=== PATIENT | male | born 1945 | race Caucasian/White ===

== ENCOUNTER 2018-08-24 22:01 | Inpatient (IN) ==
[2018-08-24] MEDS ORDERED: ASPIRIN ONE (22:21)
[2018-08-24 23:58] LABS: INR 1.06; PROTIME 14.6 Seconds (11.0-16.0)
[2018-08-24 23:59] LABS: BASO# 0.01 X1000 (0.0-0.2); HEMATOCRIT 36.6 % (42.0-52.0); HEMOGLOBIN 12.1 g/dL (14.0-18.0); IMM GRAN% 0.4 % (0.0-0.5); LYMPH# 0.58 X1000 (1.2-3.4); LYMPH% 2.3 % (20.5-51.1); MCH 31.3 PG (27-31); MCHC 33.1 g/dL (33-37); MCV 94.6 FL (81-99); MONO# 0.96 X1000 (0.11-0.59); MONO% 3.7 % (1.7-9.3); MPV 10.2 FL (7.4-10.4); NEUT# 24.09 X1000 (1.4-6.5); NEUT% 93.6 % (42.2-75.2); PLT 268 X1000 (130-400); PTT 33.6 Seconds (22.3-41.8); RBC 3.87 XMIL (4.7-6.1); RDW 17.9 % (11.5-14.5); WBC 25.74 X1000 (4.8-10.8)
[2018-08-25 00:09] LABS: ALB/GLOB RATIO 0.8; ALBUMIN 2.3 g/dL (3.5-5.0); CALCIUM 7.9 mg/dL (8.8-10.2); POTASSIUM 4.7 mmol/L (3.5-5.1); TOTAL BILIRUBIN 0.68 mg/dL (0.20-1.00); TOTAL PROTEIN 5.3 g/dL (6.3-8.3)
--- NOTE | 2018-08-25 01:17 | PROVIDER DOCUMENTATION ---
This chart was entered by Chasity Servin Scribe, acting as scribe for Taye Vasquez DO. HPI-General Adult - General Stated Complaint: weakness Time Seen by Provider: 08/24/18 22:32 Source: patient Allergies/Adverse Reactions: Patient Allergies Allergy/AdvReac Type Severity Reaction Status Date / Time oseltamivir [From Tamiflu] Allergy ALTERED Verified 07/22/18 11:01 MENTAL STATUS Home Medications: Home Medication List Medication Instructions Recorded Confirmed Last Taken Type Folic Acid 0.8 mg PO DAILY 10/14/13 07/22/18 07/21/18 History Ascorbate Calcium [Vitamin C] 500 mg PO DAILY 10/29/15 07/22/18 07/21/18 History Sitagliptin [Januvia] 50 mg PO DAILY 07/03/17 07/22/18 07/21/18 History Calcium Acetate [Phoslo] 1,334 mg PO TID CC tablet 07/10/17 07/22/18 07/21/18 Rx Febuxostat [Uloric] 40 mg PO DAILY tablet 07/10/17 07/22/18 07/21/18 Rx [place]-3 Fatty Acids [Fish Oil 1,200 mg PO TID 12/15/17 07/22/18 07/21/18 History Concentrate] Amiodarone [Cordarone] 200 mg PO BID 02/16/18 07/22/18 07/21/18 History Glimepiride [Amaryl] 2 mg PO DAILY 02/16/18 07/22/18 07/21/18 History SIMVAstatin [Zocor] 40 mg PO HS 02/16/18 07/22/18 07/21/18 History Vitamin B Comp and C/FA/Zn Cit 1 tab PO DAILY 02/16/18 07/22/18 07/21/18 History [Dialyvite 800-Zinc 50 mg Tab] Ferric Citrate [Auryxia] 1 tab PO DIRECTED 06/26/18 07/22/18 Unknown History Midodrine [Proamatine] 10 mg PO TID #90 tab 07/28/18 Unknown Rx - History of Present Illness -Gen Adult Nature of Presenting Problems: Pt is 73/m presenting to ED w/ c/p midchest w/ sob that started today. He has been coughing and admits some pain in chest with coughing. Pt is on recent antibiotics by Dr. Porter. Location of Pain/Injury: reports: chest (mid chest) Pain Radiation: reports: no radiation Quality of Pain: reports: aching Severity: reports: mild Onset/Duration: reports: this evening Timing: reports: still present Context/Activities at Onset: reports: none Modifying Factors: improves with: nothing Associated Symptoms: reports: chest pain, cough, shortness of breath. denies: fever/chills Similar Symptoms Previously?: Yes Recently seen or treated by another doctor?: Yes Review of Systems - Adult - REVIEW OF SYSTEMS - ADULT Constitutional: reports: no symptoms reported. denies: chills, fever Eyes: reports: no symptoms reported Ears, Nose, Mouth & Throat: reports: no symptoms reported Cardiovascular: reports: chest pain. denies: edema Respiratory: reports: cough, shortness of breath. denies: wheezing Gastrointestinal: reports: no symptoms reported. denies: abdominal pain Genitourinary: reports: no symptoms reported Musculoskeletal: reports: no symptoms reported Integumentary: reports: no symptoms reported Neurological: reports: no symptoms reported Psychiatric: reports: no symptoms reported Endocrine: reports: no symptoms reported Hematologic/Lymphatic: reports: no symptoms reported Allergic/Immunologic: reports: no symptoms reported All Other Systems: Reviewed and Negative Past History - Adult - PAST MEDICAL HISTORY-ADULT Review of Records: reports: Old Records Reviewed, Nursing Assessment Review, Medications Reviewed, Social history reviewed & non-contributory. Major Childhood Illnesses: reports: denies history Cardiovascular: reports: A-Fib, HTN Respiratory: reports: denies history Gastrointestinal: reports: denies history Obstetrical/Gynecological: reports: denies history Genitourinary: reports: dialysis, kidney disease Musculoskeletal: reports: denies history Neurological: reports: denies history Endocrine/Immune: reports: Diabetes Other Conditions: reports: denies history - PRIOR SURGERIES/PROCEDURES Surgical/Procedure History: reports: reviewed, not pertinent, appendectomy, cholecystectomy, tonsillectomy, hernia repair - IMMUNIZATION STATUS Childhood Immunizations: See Nurse Assessment Flu Vaccine: See Nurse Assessment - FAMILY HISTORY Family History: reviewed, not pertinent - SOCIAL HISTORY Smoking: quit greater than 1 year Substance Use: none/never Alcohol Use Frequency: never Living Situation: family Physical Exam-General - PHYSICAL EXAM-ADULT Initial Vital Signs Reviewed: Yes - CONSTITUTIONAL General Appearance: appears well, alert, no apparent distress - EYES Eyes: PERRL/EOMI - HEAD, EARS, NOSE, MOUTH & THROAT HENMT: normocephalic/atraumatic, moist mucous membranes, normal ENT inspection, TMs normal - NECK Neck: non-tender, full range of motion, supple - RESPIRATORY Respiratory: rales (Course rales on R side) - CARDIOVASCULAR Cardiovascular: normal peripheral pulses, regular rate, rhythm, no edema, no gallop, no JVD, no murmur - GASTROINTESTINAL (ABDOMEN) Abdominal Exam: normal bowel sounds, non tender, soft, other (Dialysis port in abd) - LYMPHATIC Lymphatic: no adenopathy - MUSCULOSKELETAL Back Exam: normal inspection, no CVA tenderness, no vertebral tenderness Extremity: other (scrapes to lower legs that are well healing) - SKIN Integumentary: normal color, normal turgor, warm/dry Progress - PLAN OF CARE/RESULTS Progress/Plan/Lab Results: Orders Category Date Time Status Aspirin Med 08/24/18 22:21 Discontinued 325 mg .ROUTE .STK-MED ONE Result Diagrams: 08/24/18 22:01 08/24/18 22:01 - EKG 1 Time of EKG reading by physician:: 22:14 EKG Read and Signed by:: Taye Vasquez EKG Interpretation (*Must complete 3 of following elements*): Abnormal ( pulmonary disease pattern Left anterior fascicular block Prolonged QT Abnormal ECG) Rate: 89 Rhythm: normal sinus rhythm - XRAY 1 XRAY Study: Chest (possible right lower lobe infiltrate vs atelectasis) Departure - Departure Date of Disposition Decision: 08/25/18 Time of Disposition Decision: 01:14 DIAGNOSIS: Pneumonia Disposition: HOME 01 Certified Medical Emergency: Emergent Condition: Fair Referrals and Follow-Ups: Nabeel Kinney MD [Primary Care Provider] - - Critical Care Note This patient required my direct & personal management of CC.: No Attestation - Physician/ PILAR Attestation Patient care was provided by Advanced Practice Provider:: No The physician spent face to face time with patient:: Yes Advanced Practice Provider documentation review:: Supervising physician onsite and consulted in the evaluation and care of this patient. The physician did have a face to face encounter with the patient. This chart was documented by the indicated scribe, (ServinChasity castaneda Scribe) and accurately reflects the services I performed and decisions made by , Taye Vasquez DO, as attested by the provider's signature.
[2018-08-25] MEDS ORDERED: MAXIPIME 1 GM in NS 50 ML IV ONE (01:58)
[2018-08-25] MEDS ORDERED: VANCOMYCIN 1 GM/NS 1 GM/250 ML IVPB IV ONE (01:58)
[2018-08-25 02:15] LABS: GLUCOSE BODY FLUID 324 mg/dL; LDH BODY FLUID 16 U/L; TOTAL PROT BODY FLUID 0.2 g/dL
[2018-08-25 02:23] LABS: BODY FLUID SOURCE PERITONEAL FLUID; WBC BF 15 /cumm
[2018-08-25 03:22] LABS: MONOS 85 %; POLYS 15 %
[2018-08-25] MEDS ORDERED: VANCOMYCIN IV PER PHARMACY MISC SCH (04:15)
[2018-08-25] MEDS ORDERED: ZOFRAN IV PRN (04:54)
[2018-08-25] MEDS ORDERED: TESSALON PO PRN (04:54)
[2018-08-25] MEDS ORDERED: TYLENOL PO PRN (04:54)
--- NOTE | 2018-08-25 05:22 | Diag Imaging Result Doc PS360 ---
EXAM: CHEST-PORTABLE HISTORY: chest pain TECHNIQUE: Chest single view COMPARISON: 06/26/2018 FINDINGS: Poor inspiratory effort. The heart is not enlarged. The vessels are not distended. There are mild increased interstitial markings in the lung bases. No effusion identified. IMPRESSION: Small basilar infiltrates. Electronically signed by Johann Singh 08/25/2018 5:20 AM
[2018-08-25 07:56] LABS: BASO# 0.01 X1000 (0.0-0.2); HEMATOCRIT 32.7 % (42.0-52.0); HEMOGLOBIN 10.8 g/dL (14.0-18.0); IMM GRAN# 0.08 X1000 (0.0-0.04); IMM GRAN% 0.3 % (0.0-0.5); LYMPH# 0.87 X1000 (1.2-3.4); LYMPH% 3.5 % (20.5-51.1); MCH 31.2 PG (27-31); MCV 94.5 FL (81-99); MONO# 1.03 X1000 (0.11-0.59); MONO% 4.2 % (1.7-9.3); MPV 10.1 FL (7.4-10.4); NEUT# 22.53 X1000 (1.4-6.5); PLT 224 X1000 (130-400); RBC 3.46 XMIL (4.7-6.1); RDW 17.9 % (11.5-14.5); WBC 24.52 X1000 (4.8-10.8)
--- NOTE | 2018-08-25 08:01 | HISTORY AND PHYSICAL ---
Patient of Dr. Kinney. Comes in complaining of a 5 day history of cough and worsening shortness of breath, increased weakness and decreased appetite without any fevers or chills. He is a peritoneal dialysis patient but denies any abdominal pain. Reviewed his lab work and his white count was 25,000, H and H 12 and 36, platelets were 268,000 with a neutrophil percent count of 93%. His sodium is 128, BUN 76, creatinine 9.0, glucose of 296. His ProBNP is elevated as expected but his lactate is normal. His chest film reviewed by me did not appear to show any acute infiltrates. By the way, his troponin was 2.97 which I think is more to do with his renal state but his CK was normal. He has mildly elevated liver enzymes. PHYSICAL EXAMINATION: VITAL SIGNS: His blood pressure was 91/41. Pulse 87, respirations 19, temperature 98.3 degrees. His exam was notable for bibasilar crepitations. He is a chronically ill man with decreased entry in the bases. He is pale. CARDIOVASCULAR: 2-3/6 ejection systolic murmur radiating to the neck suggestive of aortic stenosis. ABDOMEN: Essentially benign and he has a dialysis catheter in the right lower quadrant area. EXTREMITIES: He has 1+ pitting edema in the lower extremities. PRELIMINARY ASSESSMENT: 1. Patient clinically does have findings suggestive of pneumonia. 2. End-stage kidney disease on peritoneal dialysis. His peritoneal dialysate fluid is clear by the way visually and grossly. 3. He does have a history of uncontrolled type 2 diabetes. 4. Hypertension. 5. Coronary artery disease. 6. Hyponatremia which seems to be hypotonic in nature. So, the initial plan for this patient will be to start on broad spectrum antibiotics for presumptive hospital-acquired pneumonia and we will start him on vancomycin and Maxipime and transfer to the care of Dr. Kinney in the morning and Dr. Shen. cc: MD Nabeel Nicholas MD
[2018-08-25 08:57] LABS: BANDS 10 % (0-1); LYMPHS 2 % (21-51); MONO 2 % (1-9); SEGS 84 % (42-75)
[2018-08-25] MEDS ORDERED: NEPHRO-VITE PO SCH (09:00)
[2018-08-25] MEDS ORDERED: JANUVIA PO SCH (09:00)
[2018-08-25] MEDS ORDERED: AMARYL PO SCH (09:00)
[2018-08-25 09:38] LABS: CALCIUM 7.5 mg/dL (8.8-10.2); CREATININE 9.9 mg/dL (0.7-1.2); PHOSPHORUS 7.6 mg/dL (2.7-4.5); POTASSIUM 4.7 mmol/L (3.5-5.1)
[2018-08-25] MEDS: ULORIC PO SCH (09:42)
[2018-08-25] MEDS: PROAMATINE PO SCH ×3 (09:42→21:01)
[2018-08-25] MEDS: FOLIC ACID PO SCH (09:44)
[2018-08-25] MEDS: CORDARONE PO SCH ×2 (09:44→21:01)
[2018-08-25 09:55] LABS: HEMOGLOBIN A1C 6.1 % (4.8-6.0)
--- NOTE | 2018-08-25 09:58 | PROGRESS NOTE ---
DATE: 08/25/2018 SUBJECTIVE: A 73-year-old, white gentleman, admitted with chest congestion, cough, and weakness. The patient is vague and a poor historian. The patient has been sick for the last few days. Oral intake was poor. The patient had nausea but no vomiting. The patient is not making any urine. No diarrhea. No typical chest pain or palpitations. The patient is getting peritoneal dialysis. No hemoptysis. Denied any sore throat. His admission note reviewed. PAST MEDICAL HISTORY: 1. Significant for chronic kidney disease on hemodialysis. 2. History of cardiac arrhythmia on amiodarone. 3. Gout. 4. Diabetes mellitus. 5. Hyperlipidemia. OBJECTIVE: Vital Signs: Blood pressure on admission was low 91/41, pulse 87, respiration 19, temperature 98.3. Skin: Normal turgor. No rash or petechiae. Neck supple. No JVD. Lungs: Bibasilar crepitation. Heart: S1 and S2 heard. Abdomen soft, globular. Bowel sounds present. FILLING AND PACKING SUPERVISOR: Alert, awake, able to move all 4 limbs. LABORATORY DATA: Lab data did reveal leukocytosis with left shift. Chest x-ray did reveal bilateral infiltrate. Peritoneal fluid analysis noted. Flu test was negative. CONSIDERATION: 1. Possible pneumonia. 2. Leukocytosis. 3. End-stage renal disease on peritoneal dialysis. 4. Diabetes mellitus. 5. Hyperlipidemia. PLAN: We will continue IV antibiotics. Retail Salesworker is going to see patient. Continue rest of the treatment and close observation. cc: MD Nabeel Herrera MD
[2018-08-25] MEDS: DUONEB (A & A) INH SCH ×3 (10:26→21:23)
--- NOTE | 2018-08-25 11:56 | HISTORY AND PHYSICAL ---
PRIMARY CARE PROVIDER: Nabeel Kinney MD DATE AND TIME: 08/25/2018 at 0300. CHIEF COMPLAINT: Weakness. HISTORY OF PRESENT ILLNESS: Mr. Cardona is a 73-year-old male with a past medical history most notable for end-stage renal disease on nightly peritoneal dialysis followed by Dr. Shen. He also has a history of orthostatic hypotension, paroxysmal atrial fibrillation , recent gastrointestinal bleeding, and hyperlipidemia. Mr. Cardona states that for approximately 1 week now that he has not felt well and he has had worsening weakness. His states that he has also been more sleepy and drowsy than normal. The patient has reported some chills as well as a nonproductive wet cough times 1 week. The patient did state that he had some shortness of breath today prior to arrival but this has subsided at this time. His did state that he also did have a fall that occurred on Monday though since that time he has not reported any pain or injuries. He has also had physical therapy that came out to his house the next day. The patient does have orthostatic hypotension and does take midodrine and does have frequent dizziness related to this though he states this has been slightly worse. He denies any headache. He denies any chest pain except for some chest discomfort when he coughs. He denies any abdominal pain, nausea, vomiting, or diarrhea. He also denies any erythema, warmth, or drainage from his peritoneal dialysis port site and also reports that his peritoneal dialysis fluid drainage has been clear in color. The patient states that he does not produce urine any more though has not reported any discomfort or spasms recently. He does have some chronic swelling in his bilateral lower extremities though states that this is not any worse than his normal. The patient does have some very slight trace edema. His states that normally he is able to ambulate with the assistance of a walker though since he has become more weak that he has been using the assistance of a wheelchair. His also stated that he did have a routine appointment with Dr. Shen approximately a week ago and did have a cough as well as some nasal congestion and they did report that he was prescribed 2 nasal sprays and was instructed to take Coricidin. The patient states that since that time he has begun to feel worse. She states that she did contact Dr. Shen yesterday and informed him of Mr. Cardona's worsening symptoms and Dr. Shen did want him to get an x-ray though she was not able to bring him in for this outpatient order so he did call him in a prescription of cefadroxil. His reports that he did take 1 dose of this. Upon evaluation in the E.R. the patient's initial vital signs were a temperature of 98.3, heart rate 87, respirations 19, blood pressure 91/41, and oxygen saturation 95% on room air. Laboratory results did reveal that the patient had leukocytosis with a white blood cell count of 25,740. Chest x-ray does show a possible right lower lobe infiltrate and given his associated symptoms of nasal congestion, nonproductive wet cough, weakness, and shortness of breath as well as lung sounds of rhonchi and crackles in the bilateral bases the patient will be treated for pneumonia. A sample of his peritoneal fluid was obtained by his which did only show that he had white blood cells of 15, polynuclear white blood cells of 15, and mononuclear white blood cells of 85. He as previously mentioned has not had any abdominal symptoms. The patient will be placed on inpatient admission for further treatment and evaluation. REVIEW OF SYSTEMS: A 14 point review of systems was conducted with the patient and all were negative except for pertinent positives mentioned above in the HPI. PAST MEDICAL HISTORY: 1. End-stage renal disease on nightly peritoneal dialysis followed by Dr. Shen. 2. Paroxysmal atrial fibrillation currently rate controlled with amiodarone. The patient does not take anything for anticoagulation secondary to recent gastrointestinal bleeding though he was previously on Coumadin. 3. Some hyperlipidemia. 4. History of hypertension though the patient does not take any medications for this and actually has had recent problems with orthostatic hypotension. 5. Orthostatic hypotension. 6. Gout. 7. Diabetes mellitus. 8. Recent gastrointestinal bleed in June of 2018. PAST SURGICAL HISTORY: 1. Cholecystectomy. 2. Bilateral cataract surgery. 3. Retinal detachment surgery. 4. Appendectomy. 5. Tonsillectomy. 6. Left inguinal hernia repair. SOCIAL HISTORY: The patient is former smoker. He did smoke for approximately 10 to 20 years at 1 pack per day though quit smoking in the 1980s. There is no known alcohol or illicit drug use. He is and he does live with his . She was present at the bedside during our examination. The patient does normally require the assistance of a walker for ambulation though recently has had to use a wheelchair due to his worsening weakness. PAST FAMILY HISTORY: His mother had a history of heart disease and did have a myocardial infarction. She also did have heart failure and did have an implanted defibrillator. His father also had heart disease as well as a myocardial infarction. He was a diabetic though did pass away secondary to complications from a stroke. His sister did have diabetes mellitus and did pass away secondary to metastatic breast cancer. ALLERGIES: The patient has allergies to Tamiflu. HOME MEDICATIONS: 1. Amiodarone 200 mg p.o. b.i.d. 2. Uloric 40 mg p.o. every a.m. 3. Folic acid 800 mcg p.o. every a.m. 4. Dialyvite tablet 50 mg p.o. daily. 5. Glimepiride 2 mg p.o. every a.m. 6. Midodrine 10 mg p.o. t.i.d. 7. Zocor 40 mg p.o. nightly at bedtime. 8. Januvia 1 tablet p.o. every a.m. DIAGNOSTIC DATA: White blood cell count is 25.740, hemoglobin 12.1, hematocrit 36.6, and platelet count 268. PT is 14.6, INR 1.06, and PTT 33.6. Sodium is 128, potassium 4.7, chloride 84, serum bicarb 25, BUN 76, creatinine 9 with a GFR of 6, glucose 297, calcium 7.9, total bilirubin 0.68, AST 96, ALT 133, and alkaline phosphatase 274. CK is 53. Troponin is 0.297. ProBNP is greater than 35,000. Plasma lactate is 2.1. PT is 14.6, INR 1.06, and PTT 33.6. Peritoneal dialysis fluid had 15 white blood cells, 15 polynuclear white blood cells, and 85 mononuclear white blood cells. Chest x-ray did show a possible right lower lobe infiltrate though we are awaiting the official radiology overread. EKG did show that the patient had a sinus rhythm, a left anterior fascicular block, and a prolonged QT. In comparison to the patient's previous EKG in May of 2008 there does not appear to be any significant changes. PHYSICAL EXAMINATION: VITAL SIGNS: Temperature is 98.3, heart rate 77, respirations 15, and blood pressure 122/42. Oxygen saturation is 100% on nasal cannula at 2 L. GENERAL: Mr. Cardona is a very pleasant 73-year-old male who is resting in the E.R. stretcher. He is in no acute distress. He was awake, alert, and able to answer questions appropriately. HEENT: The head is atraumatic, normocephalic. Pupils are equal, round, and reactive to light. They were 3 mm bilaterally and brisk. Subconjunctivae were pink. Oral mucosa was moist. Oropharynx was clear. NECK: Supple. Trachea is midline. CARDIOVASCULAR: The patient has S1 and S2 present. He does have a systolic murmur noted though he does have a regular rate and rhythm. PULMONARY: The patient has symmetrical chest expansion bilaterally. Lungs sounds in full abebe did have rhonchi noted. He does have crackles noted in bilateral bases. ABDOMEN: Soft, nontender, and nondistended. Bowel sounds were present in all four quadrants and were normoactive. The patient's peritoneal dialysis port site does appear within normal limits. There was no erythema, warmth, or drainage present. EXTREMITIES: No cyanosis or clubbing present. The patient does have some trace edema noted in bilateral lower extremities from approximately mid calf down though pulse, motor , and sensory is intact in all extremities. Radial pulses and pedal pulses were 2+ bilaterally. Capillary refill is less than 3. INTEGUMENTARY: The patient's skin is pink, warm, and dry. NEUROLOGICAL: The patient is alert and oriented times 4. There does not appear to be any focal neurological deficits. The patient does have some generalized weakness present. ASSESSMENT AND PLAN: 1. Pneumonia. The patient had been recently admitted to the hospital at the end of June and we will cover him for healthcare-associated pneumonia as well. We have placed him with antibiotic coverage of cefepime and vancomycin. This has been renally dosed. Blood cultures have been ordered as well. We will order a sputum culture also. Continue with scheduled DuoNeb treatments. Encourage the patient to cough, turn, and deep breath. We will monitor his respiratory status closely and continue to follow. 2. End-stage renal disease on peritoneal dialysis. We have placed a consult with Dr. Shen with Nephrology. We will await his evaluation and further recommendations for management. The patient does have leukocytosis and has reported chills though he is denying any abdominal pain or nausea/vomiting. His peritoneal dialysis fluid was clear in color and his peritoneal fluid analysis so far does not represent a concern for peritonitis though we are awaiting culture results as well. At this time we do believe that his symptoms and diagnostic findings are related to pneumonia. We will continue to follow. 3. Diabetes mellitus type 2. His glucose levels are elevated. Given his acute illness related to pneumonia we will place him on a lispro insulin per low dose sliding scale for better blood glucose control. 4. History of paroxysmal atrial fibrillation. We will continue his amiodarone. 5. Orthostatic hypotension. We will continue his midodrine. His blood pressure is within normal limits at this time. 6. Hyperlipidemia. The patient does take simvastatin though he does have some elevated liver enzymes at this time and is having weakness. Given this we will hold this for the time being. We will repeat his liver function tests tomorrow and continue to follow. 7. Deep vein thrombosis prophylaxis will be provided with sequential compression devices. The patient has been placed on the medical floor with telemetry. He will have vital signs every 4 hours. We will do strict intake and output. We are awaiting blood culture, sputum culture, influenza screen, as well as peritoneal fluid culture results. Further orders and recommendations pending hospital course, diagnostic studies, and physician evaluation. Dictated by CANELO Mcmillan for Leodan George MD cc: MD Nabeel Nicholas MD [facility] HOSPITALInderjit
[2018-08-25] MEDS: HUMALOG SUBQ SCH ×3 (13:00→21:01)
--- NOTE | 2018-08-25 13:32 | NEPHROLOGY CONSULTATION ---
DATE: 08/25/2018 REASON FOR ADMISSION: Pneumonia. REASON FOR CONSULTATION: Assist with management, end-stage renal disease on peritoneal dialysis. CONSULTING PHYSICIAN: Dr. Nabeel Kinney. HISTORY OF PRESENT ILLNESS: This is a 73-year-old gentleman, well known to our service for end- stage renal disease on peritoneal dialysis for less than a year. He has had adequate dialysis with the peritoneal dialysis and no real issues. He currently uses all yellow bags with a 1.5 L dwell. He dialyzes on the cycler at night. The patient had home health coming out for some assistance and it was noted that he was having some shortness of breath, and clinical exam suggestive of respiratory issues. He was initially started on cefadroxil. His respiratory status worsened. He came into the emergency room and was noted to have a white count of 25.7, potassium 4.7, CO2 of 25, creatinine 9, albumin 2.3. He had a chest x-ray with atelectasis versus infiltrate. He was admitted to the hospital and started on vancomycin and Maxipime for pneumonia, and we have been asked to see him to assist with his management and continue his dialysis. The patient states that his appetite has been somewhat decreased over the last week and he really has not felt like getting up out of bed over the last 2 days. PAST MEDICAL HISTORY: End-stage renal disease on peritoneal dialysis. Diabetes. Hyperphosphatemia. Gout. Hyperlipidemia. Anemia. Atrial fibrillation. History of previous GI bleed. PAST SURGICAL HISTORY: He has a PD catheter. ALLERGIES: Tamiflu. HOME MEDICATIONS: Are listed as 1. Urolic. 2. Folic acid. 3. Amaryl. 4. Midrin. 5. Zocor. 6. Januvia. 7. Amiodarone. 8. Dialyvite. 9. He was also started on cefadroxil. SOCIAL HISTORY: No ETOH, tobacco, or illicit drug use. He is retired. He is and he lives with his at home. FAMILY HISTORY: Noncontributory. SOCIAL HISTORY: Shortness of breath, weakness, fatigue, decreased appetite. PHYSICAL EXAMINATION: Vital Signs: Temperature 98, pulse 64, respiratory rate 15, blood pressure 109/41. Intake and output have not been documented. He continues with a 1.5 L dwell. General: Elderly gentleman in no acute distress. He appears to feel poorly. His voice is weak but he does answer. HEENT: Normocephalic, atraumatic. MIKE. Oral mucosa moist. Neck: Supple. There is no JVD. Cardiovascular: Regular. No murmur or gallop. Pulmonary: He has some crackles posteriorly but no wheeze. Abdomen: Soft, positive bowel sounds. PD catheter right lower quadrant. Genitourinary: Not inspected. Voiding. Extremities: 1+ edema. Integumentary: Skin is warm and dry. He has some old eschar areas to his feet from a previous hospitalization with some pressure areas. LABORATORY DATA: WBC of 25.7, hemoglobin 12.1, sodium 128, potassium 4.7, CO2 of 25. BUN 76, creatinine 9.7, albumin 2.3. Chest x-ray with atelectasis versus infiltrate. ASSESSMENT AND PLAN: 1. Pneumonia. The patient has been placed on vancomycin and cefepime. Those are dosed appropriately. We will make no changes to them. Continue to monitor. 2. End-stage renal disease on peritoneal dialysis. The dialysis nurse customer operations manager has been notified. She will come up today and set him up for the cycler with his current prescription. The patient's last dialysis treatment was night. He did not go on the cycler last night. Dictated by CANELO Cleaning for Rigo Shen MD cc: MD Nabeel Person MD
[2018-08-25] MEDS: JANUVIA PO SCH (16:44)
[2018-08-25] MEDS ORDERED: ZOCOR PO SCH (21:00)
[2018-08-26] MEDS: DUONEB (A & A) INH SCH ×4 (03:59→22:35)
[2018-08-26] MEDS: HUMALOG SUBQ SCH ×4 (06:17→21:07)
[2018-08-26 07:47] LABS: EOS# 0.07 X1000 (0.0-0.7); EOS% 0.5 % (0.0-10.0); HEMATOCRIT 31.1 % (42.0-52.0); HEMOGLOBIN 10.1 g/dL (14.0-18.0); IMM GRAN# 0.04 X1000 (0.0-0.04); IMM GRAN% 0.3 % (0.0-0.5); LYMPH# 0.62 X1000 (1.2-3.4); LYMPH% 4.1 % (20.5-51.1); MCH 30.8 PG (27-31); MCHC 32.5 g/dL (33-37); MCV 94.8 FL (81-99); MONO% 3.3 % (1.7-9.3); NEUT# 13.72 X1000 (1.4-6.5); NEUT% 91.8 % (42.2-75.2); PLT 247 X1000 (130-400); RBC 3.28 XMIL (4.7-6.1); RDW 17.7 % (11.5-14.5); WBC 14.95 X1000 (4.8-10.8)
[2018-08-26 08:09] LABS: ANISOCYTOSIS OCCASIONAL; HYPOCHROM 1+; LYMPHS 4 % (21-51); MONO 6 % (1-9); SEGS 90 % (42-75)
[2018-08-26 08:12] LABS: ALB/GLOB RATIO 0.6; ALBUMIN 1.7 g/dL (3.5-5.0); CALCIUM 7.4 mg/dL (8.8-10.2); CREATININE 9.3 mg/dL (0.7-1.2); DIRECT BILIRUBIN 0.2 mg/dL (0.00-0.20); PHOSPHORUS 6.7 mg/dL (2.7-4.5); POTASSIUM 4.3 mmol/L (3.5-5.1); TOTAL BILIRUBIN 0.41 mg/dL (0.20-1.00); TOTAL PROTEIN 4.5 g/dL (6.3-8.3)
--- NOTE | 2018-08-26 09:53 | PROGRESS NOTE ---
DATE: 08/26/2018 SUBJECTIVE: Mr. Cardona is doing fairly well. No typical chest pains or palpitations. The patient does have cough with scanty sputum production. No high-grade fever or chills. Patient is getting peritoneal dialysis. The patient is not making any urine. Oral intake is fair. Known case of diabetes mellitus, end-stage renal disease, on peritoneal dialysis, cardiac arrhythmia, gout. OBJECTIVE: Vital Signs: Blood pressure 103/33, pulse 70, respiration 18, temperature 98 degrees. Skin: Senile turgor. No rash. HEENT: Head atraumatic, normocephalic. [place] conjunctivae. Anicteric sclerae. Neck: Supple. No JVD. Lungs: Bibasilar crepitations. Heart: S1 and S2 heard. Abdomen: Soft, globular. Bowel sounds present. Extremities: No acute DVT clinically. ARMORED MACHINE OPERATOR: Alert, awake. Answering questions fair. LAB DATA: Done today WBC count 14.95, hemoglobin 10.1, hematocrit 31.1, platelet count 247,000. Electrolyte results reviewed. LFTs: Alkaline phosphatase 218. The patient did have elevated troponin but denied any typical chest pain. I am going to repeat cardiac isoenzymes from a.m. blood today. His total CPK was normal. CONSIDERATION: 1. Pneumonia. 2. Leukocytosis, getting better. 3. Chronic kidney disease, on peritoneal dialysis. 4. Diabetes mellitus. 5. Hyperlipidemia. 6. History suggestive of gout. PLAN: Labs and medications noted. Overall plan discussed with the and the patient and they are in agreement. cc: MD Nabeel Herrera MD
[2018-08-26] MEDS: PROAMATINE PO SCH ×3 (10:05→21:05)
[2018-08-26] MEDS: FOLIC ACID PO SCH (10:05)
[2018-08-26] MEDS: JANUVIA PO SCH (10:06)
[2018-08-26] MEDS: NEPHRO-VITE PO SCH (10:06)
[2018-08-26] MEDS: ULORIC PO SCH (10:06)
[2018-08-26] MEDS: CORDARONE PO SCH ×2 (10:06→21:09)
--- NOTE | 2018-08-26 11:07 | NEPHROLOGY PROGRESS NOTE ---
DATE: 08/26/2018 SUBJECTIVE: Patient resting in bed. He states he simply does not feel well, but denies any pain or shortness of breath. OBJECTIVE: Vital Signs: Temperature 98 degrees, pulse 70, respiratory rate 18, blood pressure 103/33. General: This is an elderly gentleman resting in bed. He is awake and alert. He is in no acute distress. HEENT: Normocephalic, atraumatic. MIKE. Oral mucosa is moist. Neck: Supple, without JVD. Cardiovascular: Regular rate and rhythm. No murmur or gallop. Pulmonary: He has equal excursion. He has shallow inspiratory effort. Crackles posteriorly. Abdomen: Soft, with positive bowel sounds. He has a PD catheter right upper quadrant without any edema or erythema or drainage to the site, appropriately dressed. : Voiding. Extremities: Trace to 1+ edema. Integumentary: Skin is warm and dry. INTAKE AND OUTPUT: Have not been measured. LABORATORY DATA: WBC of 14.5 hemoglobin 10.1. Sodium 133, potassium 4.3, CO2 27, BUN 82, creatinine 9.3, albumin 1.7, phosphorus 6.7. ASSESSMENT AND PLAN: 1. Chronic kidney disease 5D on peritoneal dialysis. We will continue over the weekend. I did discuss with the family the possibility of necessity to transfer to hemodialysis secondary to his nutritional status. The patient has been drinking some protein shakes, but really no significant oral intake. Fluid volumes have been adequate he is not overloaded at this time. He remains on the yellow bags on peritoneal dialysis so that he does not diurese. 2. Pneumonia, appropriately dosed antibiotics. Continue to monitor. 3. Electrolytes, acid-base balance anemia. Metabolic bone health, patient's phosphorus is elevated. His binder was not initiated at admission. We will start that back today. 4. Diabetes, followed by primary. Dictated by CANELO Cleaning for Rigo Shen MD cc: MD Nabeel Person MD
[2018-08-26] MEDS: PHOSLO PO SCH ×2 (14:56→17:56)
[2018-08-26] MEDS: ALBUMIN 25% IV SCH (15:16)
[2018-08-26] MEDS: MEGACE PO SCH (21:05)
[2018-08-27] MEDS: DUONEB (A & A) INH SCH ×4 (03:38→22:40)
[2018-08-27] MEDS: HUMALOG SUBQ SCH ×4 (06:07→21:39)
[2018-08-27 07:43] LABS: HEMATOCRIT 26.7 % (42.0-52.0); HEMOGLOBIN 8.7 g/dL (14.0-18.0); MCH 31.3 PG (27-31); MCHC 32.6 g/dL (33-37); RBC 2.78 XMIL (4.7-6.1); RDW 17.3 % (11.5-14.5); WBC 12.66 X1000 (4.8-10.8)
[2018-08-27 07:58] LABS: ALBUMIN 2.4 g/dL (3.5-5.0); CALCIUM 7.9 mg/dL (8.8-10.2); CREATININE 8.7 mg/dL (0.7-1.2); PHOSPHORUS 5.8 mg/dL (2.7-4.5); POTASSIUM 3.6 mmol/L (3.5-5.1); RANDOM VANCOMYCIN 9.4 ug/mL (5.0-80)
--- NOTE | 2018-08-27 08:23 | EKG Report ---
Test Performed on : 08/24/2018 10:14:39 PM Test Reason : chest pain Blood Pressure : / mmHG Vent. Rate : 089 BPM Atrial Rate : 089 BPM P-R Int : 186 ms QRS Dur : 098 ms QT Int : 468 ms P-R-T Axes : 027 -80 014 degrees QTc Int : 569 ms Normal sinus rhythm. Pulmonary disease pattern Left anterior fascicular block ST elevation, consider inferior injury or acute infarct Prolonged QT ACUTE CO / STEMI Consider right ventricular involvement in acute inferior infarct Abnormal ECG When compared with ECG of 22-JUL-2018 10:06, (Unconfirmed) ST elevation now present in Inferior leads ST elevation now present in Anterior leads Unconfirmed Result
--- NOTE | 2018-08-27 08:31 | Diag Imaging Result Doc PS360 ---
EXAM: CHEST-2 VIEWS HISTORY: hypoxia TECHNIQUE: Chest two views COMPARISON: 08/24/2018 FINDINGS: The lungs are hyperexpanded. The heart is not enlarged. The vessels are not distended. Mild increased markings in the lower lungs. These may be slightly less pronounced. No pleural effusions. IMPRESSION: Mild interval improvement Electronically signed by Johann Singh 08/27/2018 8:29 AM
--- NOTE | 2018-08-27 09:35 | PROGRESS NOTE ---
DATE: 08/27/2018 SUBJECTIVE: Mr. Cardona was admitted earlier for pneumonia. He has been on cefepime as well as vancomycin. His lungs still reveal severe significant pulmonary congestion. Chest x-ray shows some improvement. His calcium was low. This morning it was 7.9, phosphorus was high at 5.8. He does have significant renal failure. He is being followed by Dr. Shen. We will continue with the current management with IV cefepime and vancomycin. cc: Nabeel Kinney MD
[2018-08-27] MEDS ORDERED: VANCOMYCIN 1 GM/NS 1 GM/250 ML IVPB IV SCH (10:00)
[2018-08-27] MEDS: PROAMATINE PO SCH ×3 (10:48→21:21)
[2018-08-27] MEDS: MAXIPIME 1 GM in NS 50 ML IV SCH (10:48)
[2018-08-27] MEDS: ULORIC PO SCH (10:49)
[2018-08-27] MEDS: NEPHRO-VITE PO SCH (10:49)
[2018-08-27] MEDS: CORDARONE PO SCH ×2 (10:49→21:21)
[2018-08-27] MEDS: PHOSLO PO SCH ×3 (10:49→16:38)
[2018-08-27] MEDS: MEGACE PO SCH ×2 (10:49→21:20)
[2018-08-27] MEDS: JANUVIA PO SCH (10:49)
[2018-08-27] MEDS: FOLIC ACID PO SCH ×2 (10:52→11:00)
--- NOTE | 2018-08-27 13:10 | NEPHROLOGY PROGRESS NOTE ---
DATE: 08/27/2018 TIME SEEN: 0835. SUBJECTIVE: Mr. Cardona is resting quietly in bed. He has just returned from having a chest x-ray. He states that he is weak, though he has no complaints. OBJECTIVE: His most recent vital signs, temperature 97.9, blood pressure 128/53 , heart rate is 66, respirations 16. He is on 2 L nasal cannula. Last recorded saturation 100 % he has had 920 in, 1012 out recorded from dialysis. LABS: Sodium 130, potassium 3.6, chloride is 89, CO2 of 26, BUN 78, creatinine 8.7, glucose 130. Anion gap of 15, calcium 7.9, phosphorus 5.8, albumin 2.4. White count 12.66, hemoglobin 8.9, hematocrit 26.7, platelet count 182 from the . PHYSICAL EXAM: General: This is a 73-year-old, white male resting quietly in bed. He appears chronically ill though no acute distress. Skin: Warm and dry. HEENT: Normocephalic, atraumatic. Conjunctiva is pale. He has MIKE. Mucous membranes are dry. Neck : Supple. Trachea midline. No evidence of JVD. Cardiovascular: Regular rate and rhythm. He is without murmur or gallop. Lungs: Clear to auscultation bilaterally equal excursion with a poor inspiratory effort. He remains on O2 support. Abdomen: Soft, round, nontender. Positive bowel sounds. PD catheter remains intact without any redness or drainage. Genitourinary: The patient has been voiding adequate amounts. Extremities: Has trace to 1+ edema. Integumentary: Skin is warm and dry. Neurological: He is alert and oriented x3. ASSESSMENT AND PLAN: 1. Chronic kidney disease stage 5D, requiring peritoneal dialysis. Patient remains on the cycler. He was just taken off this a.m. The necessity of possibly changing from peritoneal dialysis to hemodialysis had been discussed over the weekend with the patient and his . They would like to talk to Dr. Shen about this later on today. They are agreeable to transfer to hemodialysis in the next several days. We will notify surgery. 2. Electrolytes and acid-base balance. 3. Hyponatremia secondary to #1. 4. Anemia. This remains low, but fairly stable. 5. Pneumonia. Patient is on renal dosed antibiotics though chest x-ray that was completed this a.m. indicates mild interval improvement. No pleural effusions. I would like to thank you for allowing us to follow with this patient. Tunneled catheter in the morning and then hemo backup. rg Dictated by CANELO Lasron for Rigo Shen MD Face to face encounter, data reviewed, discussed with Cee Box on 08/27/18. I agree with the above assessment and plan of care. rg cc: CANELO Larson MD Amit V. Vora, MD MTDD
[2018-08-27] MEDS ORDERED: CALMOSEPTINE OINTMENT TOP PRN (16:35)
[2018-08-27] MEDS: ALBUMIN 25% IV SCH (21:16)
[2018-08-27] MEDS: REMERON PO SCH (21:21)
--- NOTE | 2018-08-27 23:42 | GENERAL SURGERY CONSULTATION ---
DATE: 08/27/2018 HISTORY OF PRESENT ILLNESS: Mr. Cardona is a pleasant 73-year-old gentleman who is on peritoneal dialysis. He was admitted with some pneumonia. Apparently, some of his numbers have deteriorated. I have been asked to place a dialysis catheter for hemodialysis to assist with his dialysis. OTHER MEDICAL PROBLEMS: Diabetes, hyperphosphatemia, gout, hyperlipidemia, anemia, atrial fibrillation. He has had a previous PD catheter. MEDICATIONS: Listed. ALLERGIES: He is allergic to Tamiflu. SOCIAL HISTORY: He is . He denies alcohol or tobacco usage. FAMILY HISTORY: Noncontributory. SOCIAL HISTORY: Does report shortness of breath, fatigue, and weakness. REVIEW OF SYSTEMS: Negative in all other subsystems. PHYSICAL EXAMINATION: Vital Signs: He is afebrile. Heart rate 73. Blood pressure is 128/34. Respiratory rate is 18. Neck: There is no cervical adenopathy. He has scars on the right, consistent with a previous tunnelled catheter on the right. No clavicular distortion. Lungs: Bilateral breath sounds present. Heart: Regular rate and rhythm. Abdomen: Soft. PD catheter is noted. He is awake, alert, and oriented. LABORATORY STUDIES: White count is 12,600, hemoglobin 8.7, hematocrit 26.7. Potassium 3.6, BUN 78, creatinine 8.7. PLAN: A left-sided tunneled hemodialysis catheter. I have discussed it with him. He understands, since he has had one before. We will plan to proceed on the . cc: MD Nabeel Hampton MD
[2018-08-28] MEDS: DUONEB (A & A) INH SCH ×4 (03:47→23:30)
[2018-08-28] MEDS: HUMALOG SUBQ SCH ×3 (06:07→21:05)
[2018-08-28 07:33] LABS: HEMATOCRIT 25.2 % (42.0-52.0); HEMOGLOBIN 8.3 g/dL (14.0-18.0); MCH 31.7 PG (27-31); MCHC 32.9 g/dL (33-37); MCV 96.2 FL (81-99); MPV 10.3 FL (7.4-10.4); RBC 2.62 XMIL (4.7-6.1); RDW 16.8 % (11.5-14.5); WBC 9.46 X1000 (4.8-10.8)
[2018-08-28 08:14] LABS: ALBUMIN 2.7 g/dL (3.5-5.0); CALCIUM 8.2 mg/dL (8.8-10.2); CREATININE 8.4 mg/dL (0.7-1.2); PHOSPHORUS 5.7 mg/dL (2.7-4.5)
[2018-08-28] MEDS: PHOSLO PO SCH ×3 (08:15→19:06)
[2018-08-28] MEDS: MEGACE PO SCH ×2 (08:15→21:08)
[2018-08-28] MEDS: NEPHRO-VITE PO SCH (08:15)
[2018-08-28] MEDS: JANUVIA PO SCH (08:15)
[2018-08-28] MEDS: ALBUMIN 25% IV SCH (08:15)
[2018-08-28] MEDS: ULORIC PO SCH (08:15)
[2018-08-28] MEDS: PROAMATINE PO SCH ×2 (08:15→19:05)
[2018-08-28] MEDS: CORDARONE PO SCH ×2 (08:15→21:08)
--- NOTE | 2018-08-28 09:41 | PROGRESS NOTE ---
DATE: 08/28/2018 SUBJECTIVE/OBJECTIVE: Mr. Cardona is recovering from pneumonia. He is on IV cefepime, as well as vancomycin. His vital signs are stable. Lungs still reveal bilateral basilar rales. He is going to have a hemodialysis catheter placed in by Dr. Tong, probably today. DIAGNOSTIC DATA: So far, his blood cultures have been negative. White count was 9.46, hemoglobin 8.3, hematocrit 25.2. PLAN: We are going to continue with the current line of therapy. cc: Nabeel Kinney MD
[2018-08-28] MEDS ORDERED: NS 250 ML ONE (10:19)
[2018-08-28] MEDS ORDERED: XYLOCAINE 1%/EPI 1:100,000 ONE (10:19)
[2018-08-28] MEDS ORDERED: HEPARIN ONE ×2 (10:19)
[2018-08-28] MEDS ORDERED: QUELICIN (DOSE) ONE (10:23)
[2018-08-28] MEDS ORDERED: AMIDATE ONE (10:23)
[2018-08-28] MEDS ORDERED: XYLOCAINE-MPF 2% ONE (10:23)
[2018-08-28] MEDS ORDERED: KEFZOL 1 GM/D5W 1 GM/50 ML IVPB ONE (10:45)
--- NOTE | 2018-08-28 11:51 | NEPHROLOGY PROGRESS NOTE ---
DATE: 08/28/2018 TIME SEEN: 0840 SUBJECTIVE: Mr. Cardona is resting quietly in bed. Head of the bed is slightly elevated. He states that he is NPO for possible tunneled dialysis catheter placement today. VITAL SIGNS: His most recent vital signs show temperature 98.4 degrees, blood pressure 118/35, heart rate 66, respirations 14. He is on 2 L nasal cannula. Last recorded saturation 100%. He has had 440 in, 1826 out per dialysis. LABORATORY DATA: Sodium 131, potassium 4, chloride 90, CO2 28, BUN 74, creatinine 8.4, anion gap 13, calcium 8.2, phosphorus 5.7, albumin 2.7. White count 9.46, hemoglobin 8.3 , hematocrit 25.2, platelet count 166,000. PHYSICAL EXAMINATION: General: This is a 73-year-old white male resting quietly in bed. He appears chronically ill, in no acute distress. Skin: Warm and dry. HEENT: Normocephalic, atraumatic. Conjunctivae pale. He has MIKE. Mucous membranes are dry. Neck: Supple. Trachea midline. No JVD. Cardiovascular: Regular rate and rhythm. No murmur or gallop appreciated. Lungs: Clear to auscultation bilaterally. Equal excursion. Shallow inspiratory effort. He does remain on O2. Abdomen: Soft, nontender. Positive bowel sounds. PD catheter remains intact without redness or drainage. He has just come off his cycler from the night. Genitourinary: Not inspected. Minimal void with dialysis assist. Extremities: No edema, no clubbing or cyanosis. Integumentary: Skin is warm and dry. Neurological: He is alert and oriented x3. ASSESSMENT AND PLAN: 1. Chronic kidney disease stage 5D. The patient continues to require hemodialysis. His albumin is low. The patient remains very, very weak. We are awaiting placement of a dialysis catheter and will plan for hemodialysis thereafter. 2. Electrolytes and acid-base balance. These remain stable. The patient is hyponatremic related to #1. 3. Anemia. This is low, but stable. 4. Pneumonia. The patient remains on renal-dosed antibiotics. 5. Hypoalbuminemia. The patient's albumin is 2.7. This had been lower earlier in the weekend. We will plan for supplement after his tunneled catheter has been placed, while on dialysis in the inpatient setting. I would like to thank you for allowing us to follow with this patient. Dictated by CANELO Larson for Rigo Shen MD Face to face encounter, data reviewed, discussed with Cee Box on 08/28/18. I agree with the above assessment and plan of care. cc: CANELO Larson MD Amit V. Vora, MD [facility]
--- NOTE | 2018-08-28 12:04 | OPERATIVE NOTE ---
PROCEDURE DATE: 08/28/2018 PROCEDURE: Placement of left internal jugular vein tunneled dialysis catheter using ultrasound and fluoroscopic guidance. SURGEON: Bob Tong MD. ELECTRICAL PROSPECTING OPERATOR: Brendan Tapia RN. PREOPERATIVE DIAGNOSIS: Chronic kidney disease 5. POSTOPERATIVE DIAGNOSIS: Chronic kidney disease 5. DESCRIPTION OF PROCEDURE: After satisfactory general endotracheal anesthesia was achieved, the left side of the neck and upper anterior chest were prepped and draped in a sterile fashion. We ultrasounded the internal jugular vein. We made a small stab incision in the left side of the neck. We accessed the left internal jugular vein under ultrasound guidance and passed the guidewire into the superior vena cava under fluoroscopic guidance. We then anesthetized the skin below the clavicle, made a small incision, and anesthetized the subcutaneous tissue between the inferior incision and the neck incision. We then tunneled the precurved catheter 28 cm long from the inferior incision to the superior incision. We then dilated the tract sequentially, then passed the dilator and introducer sheath over the guidewire. We then removed the dilator and guidewire and introduced the tunnel cath through the sheath into the superior vena cava at the junction of the innominate to the superior vena cava. We were able to aspirate blood from each lumen easily and flushed each lumen easily. We then secured the flange to the skin with 3-0 nylon. We closed the skin of the neck incision with a 4-0 Polysorb subcuticular stitch. We then flushed each lumen with strong heparin at 5000 per mL. We put 2 mL in 1 lumen and 2 mL in the other lumen. Sterile Telfa and OpSite were applied. He tolerated it well. Was sent to the recovery room in satisfactory condition. cc: MD Nabeel Hampton MD
[2018-08-28] MEDS ORDERED: TIGHT: 0.2 ML/HR FOR DIALYSIS MISC PRN (13:21)
[2018-08-28] MEDS ORDERED: NS 2,000 ML MISC PRN (13:21)
[2018-08-28] MEDS ORDERED: HEPARIN IV PRN (13:21)
[2018-08-28] MEDS: FOLIC ACID PO SCH (19:01)
[2018-08-28] MEDS: REMERON PO SCH (21:07)
[2018-08-29] MEDS: DUONEB (A & A) INH SCH ×4 (03:20→21:35)
[2018-08-29] MEDS: HUMALOG SUBQ SCH ×4 (06:11→22:35)
[2018-08-29] MEDS ORDERED: NS 2,000 ML MISC PRN (06:46)
[2018-08-29] MEDS ORDERED: TIGHT: 0.2 ML/HR FOR DIALYSIS MISC PRN (06:46)
[2018-08-29] MEDS ORDERED: HEPARIN IV PRN (06:46)
[2018-08-29 06:51] LABS: HEMATOCRIT 27.6 % (42.0-52.0); HEMOGLOBIN 8.8 g/dL (14.0-18.0); MCHC 31.9 g/dL (33-37); MCV 97.2 FL (81-99); RBC 2.84 XMIL (4.7-6.1); RDW 17.6 % (11.5-14.5); WBC 8.11 X1000 (4.8-10.8)
[2018-08-29 07:13] LABS: ALBUMIN 2.3 g/dL (3.5-5.0); CALCIUM 8.1 mg/dL (8.8-10.2); CREATININE 4.9 mg/dL (0.7-1.2); PHOSPHORUS 3.3 mg/dL (2.7-4.5); POTASSIUM 3.9 mmol/L (3.5-5.1)
[2018-08-29] MEDS ORDERED: ALBUMIN 25% IV ONE (08:02)
[2018-08-29] MEDS: MAXIPIME 1 GM in NS 50 ML IV SCH (08:50)
[2018-08-29] MEDS: ALBUMIN 25% IV SCH (08:50)
[2018-08-29] MEDS: NEPHRO-VITE PO SCH (08:51)
[2018-08-29] MEDS: MEGACE PO SCH ×2 (08:51→20:26)
[2018-08-29] MEDS: ULORIC PO SCH (08:51)
[2018-08-29] MEDS: PHOSLO PO SCH ×3 (08:51→17:30)
[2018-08-29] MEDS: JANUVIA PO SCH (08:51)
[2018-08-29] MEDS: CORDARONE PO SCH ×2 (08:51→20:27)
[2018-08-29] MEDS: FOLIC ACID PO SCH (08:51)
[2018-08-29] MEDS: PROAMATINE PO SCH ×3 (08:51→17:30)
--- NOTE | 2018-08-29 09:44 | PROGRESS NOTE ---
DATE: 08/29/2018 Mr. Cardona is feeling extremely weak. His lungs still reveal some pulmonary congestion. Heart sounds are normal. Abdomen is soft, nontender. He had a dialysis catheter put in by Dr. Tong yesterday and he is going to get dialysis as per Dr. Shen's instructions. He is very weak and we will get physical therapy to help him move and get some range of motion. His cannot handle him by herself at home. We will order physical therapy today. We will repeat a chest x- ray tomorrow also. cc: Nabeel Kinney MD
--- NOTE | 2018-08-29 10:02 | NEPHROLOGY PROGRESS NOTE ---
DATE: 08/29/2018 TIME SEEN: 0740. SUBJECTIVE: Mr. Cardona is resting quietly in bed. His is at his bedside. He states that he remains weak. Denies chest pain or increased work of breathing. OBJECTIVE: Vital Signs: Temperature 98.1 degrees, blood pressure 120/34, heart rate 77, respirations 20. He is on 2 L nasal cannula. Last recorded saturation 97%. He has had 350 in, 1930 removed on dialysis. General: This is a 73-year-old white male resting quietly in bed. He appears chronically ill, no acute distress. Skin: Warm and dry. HEENT: Normocephalic, atraumatic. Conjunctiva is pale pink. He has MIKE. Mucous membranes are dry. Neck: Supple. Trachea midline. No evidence of JVD. Cardiovascular: Regular rate and rhythm. No murmur or gallop appreciated. Lungs: Clear to auscultation bilaterally. Equal excursion on O2. Abdomen: Soft, nontender. Positive bowel sounds. Genitourinary: Not inspected. Minimal void with dialysis assist. Now on hemodialysis. Extremities: Have no edema. No clubbing or cyanosis. Neurological: Alert and oriented x3. LABORATORY DATA: Sodium 136, potassium 3.9, chloride 97, CO2 28, BUN 39, creatinine 4.9, glucose 108, anion gap 11, calcium 8.1, phosphorus 3.3, albumin 2.3. White count 8.11, hemoglobin 8.8, hematocrit 27.6, platelet count 152,000. ASSESSMENT AND PLAN: 1. Chronic kidney disease, stage 5D. The patient will require hemodialysis again today. He had dialyzed yesterday for 3.5 hours for 1 L pull. Tolerated this well, though he did have a drop in blood pressure. We will plan for dialysis again today. He is to be placed on a 2K bath. He will dialyze for 3.5 hours. We will again attempt 1 L fluid ultrafiltration. We will order 25 g of albumin initially. May possibly repeat 25 g of albumin during his treatment to keep his blood pressure stable. 2. Malnutrition, hypoalbuminemia. We will order IDPN to be transfused while on dialysis to assist with his nutritional status. 3. Pneumonia. Patient remains on renal-dosed antibiotics. I would like to thank you for allowing us to follow with this patient. Dictated by CANELO Larson for Riog Shen MD Face to face encounter, data reviewed, discussed with Cee Box on 08/29/18. I agree with the above assessment and plan of care. cc: CANELO Larson MD Amit V. Vora, MD [facility]
[2018-08-29] MEDS: REMERON PO SCH (20:27)
[2018-08-30] MEDS: DUONEB (A & A) INH SCH ×4 (03:42→21:56)
[2018-08-30] MEDS: HUMALOG SUBQ SCH ×4 (06:01→21:45)
[2018-08-30 07:40] LABS: CALCIUM 8.1 mg/dL (8.8-10.2); CREATININE 3.3 mg/dL (0.7-1.2); POTASSIUM 3.3 mmol/L (3.5-5.1)
--- NOTE | 2018-08-30 08:58 | Diag Imaging Result Doc PS360 ---
CHEST-2 VIEWS - 08/30/2018 INDICATION: pneumonia COMPARISON: 08/27/2018 FINDINGS: There is a new left dialysis catheter in good position with the distal tip at the lower SVC. There is a new substantial left lower lobe alveolar infiltrate. Heart size and pulmonary vascularity are top normal. No pneumothorax or significant pleural effusion. IMPRESSION: Left lower lobe infiltrate concerning for pneumonia or aspiration. Electronically signed by Franklin Anthony 08/30/2018 8:56 AM
[2018-08-30] MEDS: FOLIC ACID PO SCH (09:30)
[2018-08-30] MEDS: PROAMATINE PO SCH ×3 (09:30→19:33)
[2018-08-30] MEDS: ULORIC PO SCH (09:31)
[2018-08-30] MEDS: PHOSLO PO SCH ×3 (09:31→19:31)
[2018-08-30] MEDS: JANUVIA PO SCH (09:31)
[2018-08-30] MEDS: CORDARONE PO SCH ×2 (09:31→21:46)
[2018-08-30] MEDS: NEPHRO-VITE PO SCH (09:31)
[2018-08-30] MEDS: MEGACE PO SCH ×2 (09:31→21:46)
--- NOTE | 2018-08-30 09:33 | PROGRESS NOTE ---
DATE: 08/30/2018 Mr. Cardona is doing much better. His vital signs are stable. Yesterday, after dialysis, he had some hypotension. A 250 mL normal saline challenge was given and vital signs came back to normal. His chest x-ray continues to show the pneumonia, left lower lobe infiltrate. He has pulmonary congestion bilaterally. His lab data is showing much significant improvement. CBC is unremarkable. However, the creatinine is coming down significantly. It came down from 4.9 to 3.3 now. He is feeling better. We will continue with the current management. cc: Nabeel Kinney MD
[2018-08-30 13:16] LABS: HEPATITIS PROFILE ACUTE SEE COMMENTS
--- NOTE | 2018-08-30 13:16 | ECHO REPORT ---
ORDER DATE: 08/29/2018 INTERPRETING PHYSICIAN: Dr. Mark Gomez. ECHOCARDIOGRAPHIC MEASUREMENTS: 1. Interventricular septum 1.4 cm. 2. Left ventricular posterior wall 1.2 cm. 3. Diastolic diameter 4.6 cm. 4. Left ventricular systolic diameter 3.9 cm. 5. Left atrium 3.1 cm. 6. Aorta 3.3 cm. SUMMARY OF THE 2-DIMENSIONAL IMAGIN. Technically suboptimal study. 2. Aortic valve leaflets are calcified. 3. Mitral valve leaflets are mildly thickened. There is [id number] mitral annular calcification. Tricuspid valve is normal. Pulmonic valve is normal. 4. Normal left ventricular cavity size. Estimated ejection fraction of 55% - 60 %. There is diastolic dysfunction. 5. There is mild mitral regurgitation. 6. Peak velocity across the aortic valve was 3.9 m/sec with a mean gradient of 35 mmHg. Aortic valve area of 1.3 square cm by V TI . There is associated mild aortic regurgitation. There is moderate aortic stenosis. Would recommend transesophageal echocardiogram to better evaluate aortic valves if clinically indicated. 7. There is mild tricuspid regurgitation. Peak velocity across the tricuspid valve was 3.3 m/sec. Pulmonary artery systolic pressure of 54 mmHg. 8. There is no pericardial effusion or obvious intracardiac mass or thrombus seen. 9. There is left atrial enlargement. cc: MD Caitlin Zee CRNP Amit V. Vora, MD MTDD
[2018-08-30] MEDS ORDERED: VANCOMYCIN 1 GM/NS 1 GM/250 ML IVPB IV SCH (15:15)
--- NOTE | 2018-08-30 15:52 | NEPHROLOGY PROGRESS NOTE ---
DATE: 08/30/2018 TIME SEEN: 0830. SUBJECTIVE: Mr. Cardona is resting quietly in bed. Head of the bed is slightly elevated. He is mostly supine. OBJECTIVE: Vital Signs: Temperature 98.4 degrees, blood pressure 144/35, heart rate 86, respirations 17. He is on room air. Last recorded saturation 98%. He has had 820 in. He has had 1 L removed on dialysis. Labs: Sodium 138, potassium 3.3, chloride 99, CO2 27, BUN 34, creatinine 3.3, glucose 83, anion gap of 12, calcium 8.1, phosphorus 3, albumin 3. Previous hemoglobin 8.8 on the . PHYSICAL EXAMINATION: General: This is a 73-year-old white male who is resting quietly in bed, no acute distress. Skin: Warm and dry. HEENT: Normocephalic, atraumatic. Conjunctivae pale pink. MIKE. Mucous membranes dry. Neck: Supple. Trachea midline. No JVD. Cardiovascular: Regular rate and rhythm. No murmur or gallop appreciated. Lungs: Clear to auscultation bilaterally. Equal excursion. He is on room air. Abdomen: Soft, nontender. Positive bowel sounds. Genitourinary: Not inspected. Minimal void with dialysis assist. Extremities: Have no edema. No clubbing or cyanosis. Integumentary: Patient has poor skin turgor. No rashes or lesions. Neurological: Alert and oriented x3. ASSESSMENT AND PLAN: 1. Chronic kidney disease stage 5D. The patient is due for hemodialysis again in the a.m. We will plan for dialysis at that time with appropriate potassium bath. 2. Malnutrition. We will add IDPN to be transfused while on dialysis for nutritional status. We will change his diet to a healthy heart, low-sodium, increased protein, low-potassium to assist with his malnutrition. 3. Electrolytes and acid-base balance with correction on dialysis in the a.m. 4. Pneumonia. He is on renal dosed antibiotics. Scheduled for a chest x-ray this a.m. Followed by the primary care. I would like to thank you for allowing us to follow with this patient. Dictated by CANELO Larson for Rigo Shen MD cc: CANELO Larson MD Amit V. Nirmal, MD
[2018-08-30] MEDS: REMERON PO SCH (21:46)
[2018-08-31] MEDS: DUONEB (A & A) INH SCH ×4 (03:46→21:30)
[2018-08-31] MEDS: HUMALOG SUBQ SCH ×5 (07:15→20:56)
[2018-08-31] MEDS: FOLIC ACID PO SCH ×2 (08:00→13:52)
[2018-08-31] MEDS: MAXIPIME 1 GM in NS 50 ML IV SCH ×2 (08:00→13:50)
[2018-08-31] MEDS: MEGACE PO SCH ×3 (08:00→20:49)
[2018-08-31] MEDS: PHOSLO PO SCH ×3 (08:00→17:08)
[2018-08-31] MEDS: ULORIC PO SCH ×2 (08:00→13:53)
[2018-08-31] MEDS: PROAMATINE PO SCH ×3 (08:00→17:08)
[2018-08-31] MEDS: NEPHRO-VITE PO SCH ×2 (08:00→13:53)
[2018-08-31] MEDS: CORDARONE PO SCH ×3 (08:00→20:49)
[2018-08-31 08:12] LABS: ALBUMIN 2.9 g/dL (3.5-5.0); CALCIUM 8.6 mg/dL (8.8-10.2); PHOSPHORUS 3.8 mg/dL (2.7-4.5); POTASSIUM 4.1 mmol/L (3.5-5.1)
[2018-08-31] MEDS ORDERED: TIGHT: 0.2 ML/HR FOR DIALYSIS MISC PRN (08:21)
[2018-08-31] MEDS ORDERED: NS 2,000 ML MISC PRN (08:21)
[2018-08-31] MEDS ORDERED: HEPARIN IV PRN (08:21)
[2018-08-31] MEDS: D50W 250 ML, AMINOSYN 15% 500 ML, LIPOSYN 20% 250 ML MISC SCH ×3 (10:37)
--- NOTE | 2018-08-31 11:26 | PROGRESS NOTE ---
DATE: 08/31/2018 Mr. Cardona is getting hemodialysis at the present time. He is feeling slightly weak. He is getting IV nutrition, and his vital signs are stable at the present time. The last blood sugar was 116. Electrolytes are normal. BUN 49, creatinine 5 this morning. So far, the culture studies have been negative. He is being treated for pneumonia, and otherwise he is doing fairly well. We will continue with the current management on him. cc: Nabeel Kinney MD MTDD
[2018-08-31] MEDS: JANUVIA PO SCH ×2 (13:53→16:04)
[2018-08-31] MEDS: REMERON PO SCH (20:49)
--- NOTE | 2018-09-01 01:26 | NEPHROLOGY PROGRESS NOTE ---
DATE: 08/31/2018 SUBJECTIVE: He remains weak, and spending his time in the bed. Appetite remains low. Lying flat. No shortness of breath. OBJECTIVE: Vital Signs: Blood pressure 137/34. Heart rate 96. Respirations 20. Afebrile. General: No acute distress. Skin: Pale and dry. Conjunctivae are pink. Neck: Neck veins are distended. Heart: Regular, with systolic murmur. Lungs: Have equal breath sounds. No crackles or wheezes. Abdomen: Soft, nontender. Bowel sounds present. Extremities: With no edema, clubbing, or cyanosis. IMPRESSION: Weakness and orthostasis. We will volume expand during dialysis 2 L. I will ask Cardiology to evaluate him regarding his aortic valve. Continue IV nutrition during dialysis. Compression stockings. No other changes. He is not ready for discharge this week. cc: MD Nabeel Person MD
--- NOTE | 2018-09-01 01:37 | CARDIOLOGY CONSULTATION ---
DATE: 08/31/2018 Cardiology was consulted for evaluating aortic stenosis. The patient has significant episodes of hypotension with low diastolic pressures. He is admitted with likely pneumonia and is undergoing dialysis. 73-year-old gentleman has end-stage renal disease on peritoneal dialysis for less than a year transition to hemodialysis. He has undergone dialysis today, patient has had longstanding episodes of hypotension especially with diastolic blood pressure being low in the 30s to 40. Patient is admitted with shortness of breath and clinical exam suggestive of respiratory issues, chest x-ray suggestive of infiltrate. From a cardiac standpoint, he has had a left heart catheterization in 2017 which revealed no significant gradient across the aortic valve and there was no significant coronary artery disease other than calcification. There was no significant obstructive coronary artery disease. The patient denies any chest pain. There is no palpitations. He denies orthopnea or paroxysmal nocturnal dyspnea. He has been admitted with shortness of breath. REVIEW OF SYSTEM: 14-point review of systems was done.GI: There is no history of nausea, vomiting or diarrhea. There is no history of hematemesis or melena. Central nervous system: No focal weakness to suggest a CVA or TIA. Genitourinary: There is no dysuria or hematuria. PAST MEDICAL HISTORY: 1. Cardiac catheterization in 07/03/2017 revealed left main was free of disease. Left anterior descending artery diffuse calcification, no significant obstruction. Circumflex artery mild calcification. Right dominant system with mild calcification in the mid vessel, no significant stenosis, on pull back there was no gradient across the aortic valve. 2. Hypertension. 3. End-stage renal disease. 4. Paroxysmal atrial fibrillation. 5. Patient had GI bleed on 07/22/2018 requiring blood transfusion and he is going to undergo procedures and was supposed to undergo enteroscopy procedures in [place] and his colonoscopy here have been negative. This is to rule out occult GI bleed. 6. Gout. 7. Diabetes. 8. Aortic stenosis. 9. Anemia. HOME MEDICATIONS: Include Uloric, folic acid, Amaryl, Midrin, Zocor, Januvia, amiodarone. He is not anticoagulated given his GI bleed. ALLERGIES: He is allergic to oseltamivir. He does not smoke, does not drink. 14 point review of system was obtained. PHYSICAL EXAMINATION: Blood pressure 137/34. Jugular venous pressure was normal. 1st and 2nd heart sounds were heard. There was ejection systolic murmur and early diastolic murmur.Respiratory: Few scattered wheeze, decreased breath sounds at the base. Abdomen: Soft, nontender. There was no guarding or rigidity. Bowel sounds were heard. Central nervous system: Moving all 4 extremities. Extremities: Reveal trace edema. He has a catheter placed for dialysis. CURRENT MEDICATIONS: Include Tylenol as needed, amiodarone 200 mg p.o. b.i.d., Tessalon Perles, cefepime, Uloric, folic acid, insulin, Megace, midodrine 10 mg p.o. t.i.d., Remeron 15 mg p.o. at bedtime, Januvia 50, vancomycin during dialysis, simvastatin 40. LABORATORY EXAMINATION: Hemoglobin 8.8 has been stable, hematocrit 27.6, platelet count of 152,000, sodium 139, potassium 4.1, BUN 49, creatinine 5.0. ASSESSMENT AND PLAN: Mr. Jonathan Cardona is a 73-year-old gentleman with history of end- stage renal disease on peritoneal dialysis transitioning to hemodialysis has history of hypertension, diabetes, gastrointestinal bleed and has had atrial fibrillation, is not anticoagulated on account of his gastrointestinal bleed. He has been having episodes of hypotension is on midodrine and has significant drop in his diastolic blood pressure down to the 30s to 40. During his last hospitalization he received a transfusion as well as his cortisone stimulation test was negative, d baseline cortisol levels were normal. He had an echocardiogram done during this hospitalization which revealed ejection fraction of 55 to 60%. There was moderate aortic stenosis with a peak velocity of 3.9 m/sec, mean gradient of 35 mmHg with aortic valve area 1.3 square cm associated with mild aortic regurgitation however not well visualized and transesophageal echocardiogram is recommended. Had a detailed discussion with the patient. We will plan for a transesophageal echocardiogram on Monday. Currently I have not made any changes to his medications for hypertension, diabetes. As far as his low diastolic blood pressure is concerned he is on midodrine, he does not have significant aortic regurgitation to account for this either and he had been on peritoneal dialysis and had the similar features. Thank you for the consult. Will follow hospital course. cc: MD Nabeel Zee MD
[2018-09-01] MEDS: DUONEB (A & A) INH SCH ×4 (03:50→21:44)
[2018-09-01] MEDS: HUMALOG SUBQ SCH ×4 (06:48→21:13)
[2018-09-01 07:43] LABS: ALBUMIN 2.7 g/dL (3.5-5.0); CALCIUM 8.4 mg/dL (8.8-10.2); CREATININE 3.6 mg/dL (0.7-1.2); PHOSPHORUS 2.9 mg/dL (2.7-4.5); POTASSIUM 4.3 mmol/L (3.5-5.1)
[2018-09-01] MEDS: ULORIC PO SCH (09:03)
[2018-09-01] MEDS: MEGACE PO SCH ×2 (09:03→21:12)
[2018-09-01] MEDS: JANUVIA PO SCH (09:03)
[2018-09-01] MEDS: FOLIC ACID PO SCH (09:03)
[2018-09-01] MEDS: PROAMATINE PO SCH ×3 (09:04→21:13)
[2018-09-01] MEDS: CORDARONE PO SCH ×2 (09:04→21:13)
[2018-09-01] MEDS: PHOSLO PO SCH ×3 (09:04→16:48)
[2018-09-01] MEDS: NEPHRO-VITE PO SCH (09:04)
--- NOTE | 2018-09-01 12:35 | PROGRESS NOTE ---
DATE: 09/01/2018 SUBJECTIVE: Mr. Cardona has been getting dialysis. His vital signs are stable today. Blood pressure has actually come up today. His is constipated. We will start some MiraLAX. Repeat the chest x-ray in the morning. He had an echocardiogram performed yesterday which revealed ejection fraction of 50 to 60 percent. He has left atrial enlargement. Lab work revealed BUN of 39, creatinine 3.6. Electrolytes are stable. Overall condition is satisfactory. We are repeating the chest x-ray to evaluate for pneumonia tomorrow. cc: Nabeel Kinney MD
[2018-09-01] MEDS: REMERON PO SCH (21:13)
--- NOTE | 2018-09-02 01:10 | NEPHROLOGY PROGRESS NOTE ---
DATE: 09/01/2018 SUBJECTIVE: He looks a little brighter today. His color is improved. He is eating his lunch. OBJECTIVE: Blood pressure 111/28, heart rate 85, respiration 18, afebrile. General: As above. No acute distress. Skin: Warm and dry. HEENT: Conjunctivae are pink. Neck veins are not appreciated today. Heart: Regular with systolic murmur. No change. Lungs: Equal. No crackles or wheezes. Abdomen: Soft, nontender. Bowel sounds are present. Extremities: With no edema, clubbing, or cyanosis. IMPRESSION: 1. Chronic kidney disease 5D. He will have his next routine hemodialysis tomorrow. 2. Malnutrition. Continue IV PN as well as Megace and Nepro. He is also on mirtazapine 30 mg at bedtime. 3. Hypotension. He has plans for DHAVAL on Monday with Dr. Gomez. cc: MD Nabeel Person MD
[2018-09-02] MEDS: DUONEB (A & A) INH SCH ×4 (03:30→22:35)
[2018-09-02] MEDS: HUMALOG SUBQ SCH ×4 (06:24→22:35)
[2018-09-02 07:50] LABS: ALBUMIN 2.6 g/dL (3.5-5.0); CALCIUM 9.1 mg/dL (8.8-10.2); CREATININE 4.7 mg/dL (0.7-1.2); PHOSPHORUS 3.7 mg/dL (2.7-4.5); POTASSIUM 4.4 mmol/L (3.5-5.1)
[2018-09-02] MEDS: MAXIPIME 1 GM in NS 50 ML IV SCH (07:56)
[2018-09-02] MEDS: PHOSLO PO SCH ×3 (07:56→16:28)
--- NOTE | 2018-09-02 08:02 | Diag Imaging Result Doc PS360 ---
EXAM: CHEST-2 VIEWS 09/02/2018 HISTORY: pneumonia follow up TECHNIQUE: PA and lateral chest COMMENT: There is ill-defined opacity present in the left lower lobe which was also present to some extent on 08/30/2018 but which has worsened. There may also be some pleural fluid on the left which was not previously present. IMPRESSION: Worsened atelectasis or pneumonia left lower lobe with left pleural effusion. Electronically signed by Austin Rojas 09/02/2018 8:00 AM
[2018-09-02] MEDS: FOLIC ACID PO SCH (08:58)
[2018-09-02] MEDS: JANUVIA PO SCH (08:58)
[2018-09-02] MEDS: CORDARONE PO SCH ×2 (08:58→21:29)
[2018-09-02] MEDS: PROAMATINE PO SCH ×3 (08:58→21:29)
[2018-09-02] MEDS: MEGACE PO SCH ×2 (08:58→21:29)
[2018-09-02] MEDS: ULORIC PO SCH (08:58)
[2018-09-02] MEDS: MIRALAX PO SCH (08:59)
[2018-09-02] MEDS: NEPHRO-VITE PO SCH (08:59)
[2018-09-02] MEDS ORDERED: BENTYL PO PRN (12:39)
--- NOTE | 2018-09-02 13:43 | PROGRESS NOTE ---
DATE: 09/02/2018 Mr. Cardona is not feeling well. He has a chest x-ray shows much worsening of the pneumonia. I personally feel like he has received enough antibiotics to have the pneumonia improved. He has pulmonary congestion, his proBNP is extremely high, and I think most of this is congestive heart failure.Pro BNPis very high. He is going to get the DHAVAL in the morning. He has some abdominal pain. If his respiratory symptoms are not better, we will get a Pulmonology consult in the morning. cc: Nabeel Kinney MD MTDD
[2018-09-02] MEDS: REMERON PO SCH (21:29)
[2018-09-03] MEDS: DUONEB (A & A) INH SCH ×4 (03:45→23:20)
[2018-09-03] MEDS: HUMALOG SUBQ SCH ×4 (06:10→21:55)
[2018-09-03] MEDS ORDERED: NS 2,000 ML MISC PRN (06:35)
[2018-09-03] MEDS ORDERED: HEPARIN IV PRN (06:35)
[2018-09-03] MEDS ORDERED: TIGHT: 0.2 ML/HR FOR DIALYSIS MISC PRN (06:35)
[2018-09-03 08:37] LABS: ALBUMIN 2.7 g/dL (3.5-5.0); CALCIUM 9.3 mg/dL (8.8-10.2); PHOSPHORUS 4.3 mg/dL (2.7-4.5)
--- NOTE | 2018-09-03 09:48 | PROGRESS NOTE ---
DATE: 09/03/2018 Mr. Cardona is feeling somewhat better this morning. Repeat chest x-ray done yesterday showed worsening of the pneumonia. He also has some congestive heart failure. He has renal failure. He has been on 2 antibiotics for pneumonia, namely cefepime and vancomycin. He is getting hemodialysis now. We will ask Dr. Taylor to check on him for the pneumonia. He is going to get the DHAVAL today for the evaluation for atrial thrombus for further cardiac evaluation. I will continue with the current management. cc: Nabeel Kinney MD
[2018-09-03] MEDS ORDERED: ANESTHESIA PB SET 88 IN 5742 ONE (10:42)
[2018-09-03] MEDS ORDERED: SODIUM CHLORIDE 0.9% 10 ML ONE (10:42)
[2018-09-03] MEDS ORDERED: NS 1,000 ML ONE (10:42)
[2018-09-03] MEDS ORDERED: CLAVE TWINSITE 32 IN 11959 ONE (10:42)
[2018-09-03] MEDS ORDERED: DIPRIVAN 1% ONE (11:00)
[2018-09-03] MEDS ORDERED: XYLOCAINE-MPF 1% 5 ML ONE (11:01)
--- NOTE | 2018-09-03 12:38 | Diag Imaging Result Doc PS360 ---
CT THORAX W/CONTRAST - 09/03/2018 INDICATION: pneumonia, effusions COMPARISON: Chest x-ray 09/02/2018 FINDINGS: There are small bilateral pleural effusions left greater than right. There is also dependent airspace opacification, most likely dependent atelectasis bilaterally left greater than right. There is probably some mild pulmonary edema with intralobular septal thickening. Heart size is top normal. The major airways are all clear. There is a moderate amount of ascites. Otherwise upper abdominal images are grossly normal. There is a left-sided dialysis catheter in good position. There are moderate degenerative changes of the spine. No acute or suspicious bony lesion. IMPRESSION: 1. Bilateral pleural effusions. Moderate ascites. 2. Bibasilar airspace opacification mostly atelectasis. 3. Trace pulmonary edema. This exam was performed using automated exposure control, adjustment of mA or kV according to patient size, and/or use of iterative reconstruction technique Electronically signed by Franklin Anthony 09/03/2018 12:36 PM
[2018-09-03] MEDS: D50W 250 ML, AMINOSYN 15% 500 ML, LIPOSYN 20% 250 ML MISC SCH ×3 (14:25)
--- NOTE | 2018-09-03 15:01 | ECHO REPORT ---
ORDER DATE: 09/03/2018 PROCEDURE PERFORMED: Transesophageal echocardiogram. INDICATION: To assess aortic valve and aortic regurgitation. DESCRIPTION OF PROCEDURE: Informed consent was obtained from the patient. Intravenous access was established. After informed consent was obtained, patient was brought to the cardiac catheterization laboratory. His oropharynx was anesthetized using Cetacaine spray. Propofol was given to premedicate the patient. Please see detailed anesthesia records. A transesophageal probe was passed into the esophagus. Ultrasound pictures were obtained. There were no complications. FINDINGS: 1. Normal left ventricular cavity size. 2. Estimated ejection fraction of 60%. 3. Tricuspid valve was normal. 4. Pulmonic valve was normal. 5. Mitral valve leaflets were normal. There is mild mitral annular calcification. 6. Aortic valve leaflets with trileaflet calcified by planimetry. Aortic valve area of 0.9 to 1 sq cm. 7. Aortic valve leaflets were trileaflet. 8. Left atrium was normal. Left atrial appendage was normal. 9. Right atrium was normal. 10. Saline contrast study was negative for patent foramen ovale. 11. Doppler studies revealed mild mitral regurgitation. 12. There is no pulmonary regurgitation. There is mild tricuspid regurgitation. 13. There is severe eccentric tricuspid regurgitation. 14. Pleural effusion was noted. There is no pericardial effusion. CONCLUSIONS: 1. Normal left ventricular cavity size. Estimated ejection fraction of 60%. 2. Aortic valve leaflets were calcified. Aortic valve area by planimetry varies from 0.9 to 1 sq cm. There is moderate to severe aortic stenosis associated with severe eccentric aortic regurgitation. cc: MD Naebel Zee MD
--- NOTE | 2018-09-03 15:44 | NEPHROLOGY PROGRESS NOTE ---
DATE: 09/03/2018 TIME SEEN: 0800 SUBJECTIVE: Mr. Cardona is resting quietly in bed. He is NPO. He is scheduled for a DHAVAL this morning. OBJECTIVE: The patient's most recent vital signs, last temperature 97.9 degrees , blood pressure 139/33, heart rate 72, respirations are 20, he is on 2 L nasal cannula, last recorded saturation 98%. He has had 50 recorded in, he has had 0 recorded out with need for dialysis. LABS: Sodium is 137, potassium 5, chloride 97, CO2 26, BUN 68, creatinine 6, glucose 204, his anion gap is 14, calcium 9.3, phosphorus 4.3, albumin is 2.7. The patient has a previous hemoglobin of 8.8 on the . PHYSICAL EXAM: This is a 73-year-old elderly male, he is currently resting in bed. He appears a little stronger today than he has previously. He denies any pain. He is NPO. No acute distress.HEENT: Normocephalic, atraumatic. Conjunctivae pale pink. He has MIKE. Mucous membranes dry. Neck: Supple. Trachea midline. JVD approximately 6 to 8 cm. Cardiovascular: He is regular rate and rhythm. He has a systolic murmur. Lungs: Clear to auscultation bilateral, equal excursion on room air. Abdomen: Soft, nontender, positive bowel sounds. PD catheter remains dry and intact. No redness noted. Extremities: Have no edema , no clubbing or cyanosis. Integument: No rashes or lesions evident. Neurologic: Alert and oriented x3. ASSESSMENT AND PLAN: 1. Chronic kidney disease stage 5D. The patient is due for his routine dialysis treatment today. We will place him on a 2 K bath. He is to dialyze for 3-1/2 hours. We will attempt to pull him to his dry weight. 2. Electrolytes and acid-base balance, these are stable. 3. Anemia. This remains stable. 4. Low blood pressure. The patient is scheduled for a DHAVAL today to rule out any further changes in his heart valves. 5. Malnutrition. Patient is scheduled for IDPN. Like to thank you for allowing us to follow with this patient. Dictated by CANELO Larson for Rigo Shen MD Face to face encounter, data reviewed, discussed with Cee Box on 09/03/18. I agree with the above assessment and plan of care. cc: CANELO Larson MD Amit V. Vora, MD MTDD
[2018-09-03] MEDS ORDERED: VANCOMYCIN 1 GM/NS 1 GM/250 ML IVPB IV ONE (17:00)
[2018-09-03] MEDS: PHOSLO PO SCH ×3 (18:25→18:30)
[2018-09-03] MEDS: PROAMATINE PO SCH ×2 (18:30→18:33)
[2018-09-03] MEDS: ULORIC PO SCH (18:31)
[2018-09-03] MEDS: NEPHRO-VITE PO SCH (18:31)
[2018-09-03] MEDS: CORDARONE PO SCH (18:32)
[2018-09-03] MEDS: JANUVIA PO SCH (18:32)
[2018-09-03] MEDS: MEGACE PO SCH ×2 (18:32→21:54)
[2018-09-03] MEDS: FOLIC ACID PO SCH (18:32)
[2018-09-03] MEDS: MIRALAX PO SCH (18:33)
[2018-09-03] MEDS: REMERON PO SCH (21:55)
--- NOTE | 2018-09-04 00:13 | PULMONOLOGY CONSULTATION ---
DATE: 09/03/2018 REQUESTING PHYSICIAN: Dr. Kinney. REASON FOR CONSULTATION: Pneumonia. HISTORY OF PRESENT ILLNESS: Mr. Cardona is a 73-year-old white male with a 15 pack-year history for tobacco (nonsmoker for several years), end-stage renal disease on peritoneal dialysis, who has had difficulty with hypotension. The patient also developed cough and sputum production along with worsening weakness and was admitted to the hospital 08/25/2018 for presumptive hospital-acquired pneumonia due to a previous admission in June. The patient did have cough and rhonchi on exam. His initial x-ray was relatively clear, but he subsequently developed infiltrates predominantly in the lung base. He did have a CT scan performed today which reveals small bibasilar effusions, atelectasis and minor infiltrates in the lung bases. L[employer] view looks relatively clear and the basilar infiltrates not appreciated. The patient's initial white blood count on presentation to the emergency room was 25.7 thousand and it decreased sequentially over time. He denies cough or sputum production now. The patient underwent a transesophageal echocardiogram today which revealed moderate to severe aortic stenosis with severe aortic regurgitation. He is being considered for transfer to [facility]. PAST MEDICAL HISTORY: 1. End-stage renal disease. 2. Nonocclusive coronary artery disease identified 07/03/2017. 3. Hypertension with recent course complicated by hypotension. 4. Paroxysmal atrial fibrillation. 5. History of GI bleeding. 6. Diabetes mellitus. 7. Gout. SOCIAL HISTORY: Prior tobacco use as per above. No alcohol use. PHYSICAL EXAMINATION: General: Reveals a chronically ill-appearing white male in no distress. Vital signs: BP 98/70, heart rate 101, respiratory rate 16, oxygen saturation 99% on 2 L per nasal cannula. HEENT: Pupils are equal and reactive. Oropharynx is clear. Neck: Supple. Chest: Reveals crackles in the bases without wheezing or rhonchi. Cardiac: S1-S2. Abdomen: Soft without hepatosplenomegaly. Extremities: Reveal some healing pressure ulcers with residual eschar present. IMPRESSION: A 73-year-old with pleural effusions, ascites, mild bibasilar infiltrates. By presentation, this would be suggestive of bibasilar pneumonia and reflux was considered. The patient has had some difficulty with reflux but denies significant reflux event prior to admission. He has been on antibiotics during this admission and his white blood count has progressively decreased. I believe his pneumonia has been successfully treated. The patient had some difficulty with hypotension and currently is being considered for transfer to [facility] for aortic valve replacement. RECOMMENDATION: 1. Agree with current antibiotic regimen, although he should be completing his course of treatment. 2. Continue oxygen for mild hypoxemic respiratory failure. 3. Anticipate transfer to [facility]. cc: MD Nabeel Guerrier MD
[2018-09-04] MEDS: DUONEB (A & A) INH SCH ×4 (03:24→22:45)
[2018-09-04] MEDS: HUMALOG SUBQ SCH ×4 (07:51→21:12)
[2018-09-04 08:15] LABS: ALBUMIN 2.6 g/dL (3.5-5.0); CALCIUM 8.7 mg/dL (8.8-10.2); CREATININE 4.1 mg/dL (0.7-1.2); PHOSPHORUS 3.2 mg/dL (2.7-4.5); POTASSIUM 4.1 mmol/L (3.5-5.1)
--- NOTE | 2018-09-04 09:00 | DISCHARGE SUMMARY ---
ADMISSION DATE: 08/25/2018 DISCHARGE DATE: 09/04/2018 HISTORY: The patient was initially admitted with bilateral pneumonia. Chest x- ray revealed some basilar infiltrates. Echocardiogram especially the DHAVAL revealed the presence of moderate-to- severe aortic stenosis and significant aortic regurgitation. Left ventricular ejection fraction was 60%. . Lab data had revealed white count of 25.74. PTT was 33.6, PT was 1.06. Initial creatinine was high and final creatinine today is 4.1. BUN if 46. Albumin level was 2.6. Peritoneal fluid analysis was also done and hepatitis panels are negative. HOSPITAL COURSE: He was treated with IV cefepime and vancomycin. Dr. Shen saw him and he thought he would benefit more from hemodialysis. Hence, dialysis catheter placed by Dr. Bi Tong and he had several settings of hemodialysis. He was in congestive heart failure. He was seen by Dr. Gomez who decided to do a DHAVAL and found [id number] aortic valve stenosis and some regurgitation. DISPOSITION: He is going to be transferred to [facility] for valve replacement. cc: MD Rigo Wahl MD Ashish K. Basu, MD MTDD
--- NOTE | 2018-09-04 09:06 | PROGRESS NOTE ---
DATE: 09/04/2018 Mr. Cardona has had DHAVAL done yesterday which revealed moderate to severe aortic stenosis with some regurgitation. He feels better. He was seen by Dr. Taylor who also agrees with the management of pneumonia. Overall condition is stable and I and discussed this case who is a cardiac surgeon at [facility] and he is probably going to be transferred to [facility] today. cc: Nabeel Kinney MD [facility]
[2018-09-04] MEDS: MAXIPIME 1 GM in NS 50 ML IV SCH (09:38)
[2018-09-04] MEDS: MIRALAX PO SCH (09:38)
[2018-09-04] MEDS: JANUVIA PO SCH (09:39)
[2018-09-04] MEDS: CORDARONE PO SCH (09:39)
[2018-09-04] MEDS: PROAMATINE PO SCH ×3 (09:39→17:15)
[2018-09-04] MEDS: PHOSLO PO SCH ×3 (09:40→17:15)
[2018-09-04] MEDS: MEGACE PO SCH ×2 (09:40→21:13)
[2018-09-04] MEDS: FOLIC ACID PO SCH (09:40)
[2018-09-04] MEDS: ULORIC PO SCH (09:41)
[2018-09-04] MEDS: NEPHRO-VITE PO SCH (09:42)
--- NOTE | 2018-09-04 15:41 | NEPHROLOGY PROGRESS NOTE ---
DATE: 09/04/2018 TIME SEEN: 0845. SUBJECTIVE: Mr. Cardona is resting quietly. Head of the bed is elevated. He is eating his breakfast. He denies any discomfort. OBJECTIVE: Vital Signs: Temperature 98.5, blood pressure 134/32, heart rate 78 , respirations are 14. He is on 2 L nasal cannula. Last recorded saturation 100%. He has had 10 mL In and 1000 Out on dialysis. LABORATORY DATA: Sodium 136, potassium 4.1, chloride 98, CO2 of 27. BUN 46, creatinine 4.1, glucose 116. Anion gap is 11, calcium 8.7, phosphorus 3.2, albumin 2.6. Previous hemoglobin 8.8 on 08/29/2018. PHYSICAL EXAMINATION: General: This is a 73-year-old elderly white male. He is currently resting quietly in bed. No acute distress. Skin is warm and dry. HEENT: Normocephalic , atraumatic. Conjunctivae pale. He has MIKE. Mucous membranes are dry. Neck is supple. Trachea midline. No JVD in the upright position. Cardiovascular: Regular rate and rhythm. He has a systolic murmur. Lungs: Clear to auscultation bilaterally. Equal excursion on room air. Abdomen is soft, nontender. Positive bowel sounds. PD catheter remains dry and intact without redness or drainage. Extremities have no edema. No clubbing or cyanosis. Integumentary: No rashes or lesions evident to the anterior aspect of his body. Neurologic: Alert and oriented x3. ASSESSMENT AND PLAN: 1. Chronic kidney disease, stage 5D. The patient had a routine dialysis treatment yesterday per hemodialysis. We will plan for dialysis again in the morning if still in our hospital. 2. Electrolytes and acid-base balance. These are stable. 3. Anemia. This is low but acceptable. 4. Malnutrition. The patient has been scheduled for intradialytic parenteral nutrition during dialysis treatment again in the morning. 5. Low blood pressure. This is being evaluated by Cardiology who had a DHAVAL performed yesterday indicating an ejection fraction of 60% with an aortic valve leaflet calcification with [id number] aortic stenosis with severe eccentric aortic regurgitation. states that they will possibly be transferred to [facility] for possible intervention. I would like to thank you for allowing us to follow with this patient. Dictated by CANELO Larsonh, MD Face to face encounter, data reviewed, discussed with Cee Box on 09/05/18. I agree with the above assessment and plan of care. cc: CANELO Larson MD Amit V. Vora, MD [facility]
[2018-09-04] MEDS: REMERON PO SCH (21:13)
[2018-09-05] MEDS: DUONEB (A & A) INH SCH ×3 (03:29→16:20)
[2018-09-05] MEDS ORDERED: HEPARIN IV PRN (05:42)
[2018-09-05] MEDS ORDERED: TIGHT: 0.2 ML/HR FOR DIALYSIS MISC PRN (05:42)
[2018-09-05] MEDS ORDERED: NS 2,000 ML MISC PRN (05:42)
[2018-09-05] MEDS: PHOSLO PO SCH ×2 (08:22→14:09)
[2018-09-05] MEDS: CORDARONE PO SCH (08:23)
[2018-09-05] MEDS: JANUVIA PO SCH (08:23)
[2018-09-05] MEDS: NEPHRO-VITE PO SCH (08:23)
[2018-09-05] MEDS: MEGACE PO SCH (08:23)
[2018-09-05] MEDS: PROAMATINE PO SCH ×2 (08:30→14:09)
[2018-09-05] MEDS: FOLIC ACID PO SCH (08:30)
[2018-09-05] MEDS: ULORIC PO SCH (08:31)
[2018-09-05] MEDS: HUMALOG SUBQ SCH (08:32)
[2018-09-05] MEDS: MIRALAX PO SCH (08:32)
--- NOTE | 2018-09-05 08:39 | NEPHROLOGY PROGRESS NOTE ---
DATE: 09/05/2018 TIME SEEN: 0700. SUBJECTIVE: Mr. Cardona is resting quietly. They are currently waiting for a bed assignment at [facility] for transfer. OBJECTIVE: Vital Signs: Temperature 97.7, blood pressure 147/33, heart rate 73 , respirations 20. He is on 2 L nasal cannula. Last recorded saturation 100%. He has had 720 in, he has had 0 recorded out. Labs are pending. He has a last potassium 4.1 with a previous hemoglobin 8.8. PHYSICAL EXAMINATION: General: This is a 73-year-old, white male, resting quietly in bed. He appears chronically ill no acute distress. Skin: Warm and dry. HEENT: Normocephalic, atraumatic. Conjunctivae pale. He has MIKE. Mucous membranes dry. Neck: Supple. Trachea midline. He has JVD at the 6 cm hawk. Cardiovascular: Regular rate and rhythm. He has a systolic murmur. Lungs: Clear to auscultation bilaterally, equal excursion on room air. Abdomen: Soft, nontender, positive bowel sounds. PD catheter remains dry and intact without redness or drainage. Extremities: Have no edema. No clubbing or cyanosis. Neurological: Alert and oriented x3. ASSESSMENT AND PLAN: 1. Chronic kidney disease stage 5D. The patient is scheduled for dialysis today. We have instructed that if he is transferred that they will take care of his dialysis at [facility]. Otherwise, we will attempt to get his dialysis treatment completed this a.m. before transfer. 2. Electrolytes, acid-base balance and anemia. These have all been acceptable. Currently pending this a.m. 3. Low blood pressure. This is now being followed by Cardiology with transfer to [facility] secondary to evaluation of intervention for his heart valves. I would like to thank you for allowing us to follow with this patient. Dictated by CANELO Larson for Rigo Shen MD Face to face encounter, data reviewed, discussed with Cee Box on 09/05/18. I agree with the above assessment and plan of care. cc: CANELO Larson MD Amit V. Vora, MD [facility]
[2018-09-05] MEDS ORDERED: UROGESIC-BLUE PO SCH (10:00)
--- NOTE | 2018-09-05 10:07 | PROGRESS NOTE ---
DATE: 09/05/2018 SUBJECTIVE: Mr. Cardona has some discomfort in the suprapubic and penis area. He says he was catheterized about 2 weeks ago, and since then he has some burning and irritation and pain. We will put him on Urogesic Blue 1 tablet twice a day. He is still waiting for a bed at [facility]. cc: Nabeel Kinney MD
[2018-09-05 12:34] VITALS: BP 138/40
[2018-09-05] MEDS ORDERED: MAXIPIME 1 GM in NS 50 ML IV SCH (15:00)
[2018-09-05] MEDS ORDERED: MAXIPIME 1 GM in NS 50 ML IV ONE (15:00)
[2018-09-05] MEDS ORDERED: VANCOMYCIN 1 GM/NS 1 GM/250 ML IVPB IV ONE (17:00)
--- NOTE | 2018-10-09 14:23 | DISCHARGE SUMMARY ---
ADMISSION DATE: 08/25/2018 DISCHARGE DATE: 09/05/2018 DISCHARGE SUMMARY ADDENDUM: He was admitted with pneumonia in the setting of ESRD. He was treated with IV cefepime and IV vancomycin. He had a previous admission in June to [facility] and this was healthcare-associated pneumonia most probably this was gram-negative pneumonia excluding Haemophilus influenza. cc: Nabeel Kinney MD
== END 2018-09-05 16:11 | disposition short-term general hospital (02) | DRG 177 ==
LOC: SUPCPDRO → ED 22:01 → SUATTDRO 08-25 04:33 → 3N 08-25 04:33
PROVIDERS: ADMIT Internal Medicine; ATTEND Internal Medicine
CPT/HCPCS: 71010; 71020; 71045; 71046; 71260; 77001; 80053; 80069; 80074; 80076; 80202; 82550; 82945; 82948; 83036; 83605; 83615; 83880; 84157; 84484; 85025; 85027; 85610; 85730; 87040; 87070; 87075; 87205; 87275; 87276; 87804; 89051; 93005; 93306; 93312; 94640; 94761; 94799; 96365; 96367; 97110; 97162; 97530; 99285; A9270; C1750; J0330; J0690; J0692; J1644; J1815; J3370; J7030; J7050; P9047; Q9967; S0179; XXXXX

== ENCOUNTER 2019-02-08 11:08 | Inpatient (IN) ==
[2019-02-08 12:10] LABS: BASO# 0.08 X1000 (0.0-0.2); BASO% 0.7 % (0.0-0.8); EOS# 0.14 X1000 (0.0-0.7); EOS% 1.3 % (0.0-10.0); HEMATOCRIT 30.6 % (42.0-52.0); HEMOGLOBIN 9.9 g/dL (14.0-18.0); IMM GRAN# 0.19 X1000 (0.0-0.04); IMM GRAN% 1.7 % (0.0-0.5); LYMPH# 1.78 X1000 (1.2-3.4); MCH 32.5 PG (27-31); MCHC 32.4 g/dL (33-37); MCV 100.3 FL (81-99); MONO% 11.7 % (1.7-9.3); MPV 10.2 FL (7.4-10.4); NEUT# 7.66 X1000 (1.4-6.5); NEUT% 68.6 % (42.2-75.2); PLT 169 X1000 (130-400); RBC 3.05 XMIL (4.7-6.1); RDW 15.8 % (11.5-14.5); WBC 11.15 X1000 (4.8-10.8)
[2019-02-08 12:18] LABS: INR 0.95; PROTIME 13.4 Seconds (11.0-16.0)
[2019-02-08 12:19] LABS: PTT 30.1 Seconds (22.3-41.8)
[2019-02-08 12:31] LABS: ALB/GLOB RATIO 1.1; ALBUMIN 2.8 g/dL (3.5-5.0); CALCIUM 8.9 mg/dL (8.8-10.2); CREATININE 6.6 mg/dL (0.7-1.2); MAGNESIUM 2.1 mg/dL (1.5-2.7); POTASSIUM 4.9 mmol/L (3.5-5.1); TOTAL BILIRUBIN 0.63 mg/dL (0.20-1.00); TOTAL PROTEIN 5.4 g/dL (6.3-8.3)
[2019-02-08 13:01] LABS: CK INDEX 1.2 (0.0-2.5); CK-MB 19.31 ng/mL (0.0-5.0)
[2019-02-08] MEDS ORDERED: ZOFRAN IV PRN (14:32)
[2019-02-08] MEDS ORDERED: TYLENOL PO PRN (14:32)
[2019-02-08] MEDS ORDERED: POTASSIUM CHLORIDE 10 MEQ in 1/2 NS 1,000 ML IV ONE (14:32)
[2019-02-08] MEDS ORDERED: CALMOSEPTINE OINTMENT TOP PRN (14:32)
[2019-02-08] MEDS ORDERED: BENTYL PO PRN (14:32)
[2019-02-08] MEDS: DUONEB (A & A) INH SCH ×2 (15:25→23:24)
[2019-02-08] MEDS: PROAMATINE PO SCH ×2 (15:42→21:14)
--- NOTE | 2019-02-08 15:52 | CARDIOLOGY CONSULTATION ---
DATE: 02/08/2019 REASON FOR CONSULTATION: Patient had weakness and low blood pressure. HISTORY OF PRESENT ILLNESS: Mr. Cardona came to have a chest x-ray done. However at the x-ray department he was so weak that he was taken to the emergency room and subsequently admitted. The patient does not complain of chest pain. Complains of weakness. He is followed up in our office. He has some multiple other issues as listed below. From a cardiac standpoint, he has had TAVR done and had an echocardiogram earlier in December which revealed preserved left ventricular systolic function with functioning, TAVR as well as mild restriction of mitral valve movement. He has been having episodes of low blood pressure. His blood pressure varies from 75 systolic to 88. This morning when he left home is blood pressure was 88. He has been on Midodrine and increase salt intake. He undergoes peritoneal dialysis. He has had atrial fibrillation in the past and is on amiodarone, is not on any anticoagulation therapy given bleeding issues. He has diabetes and is on medications for same. He does not complain of having had any palpitations. REVIEW OF SYSTEM: GI: There is no history of nausea, vomiting, diarrhea. There is no history of hematemesis or melena. Central nervous system: No focal weakness to suggest a CVA or TIA. Genitourinary: There is no dysuria or hematuria. PAST MEDICAL HISTORY: 1. Severe aortic stenosis status post transcatheter aortic valve replacement on 09/11/2018. 2. Paroxysmal atrial fibrillation, now in sinus rhythm. 3. History of gastrointestinal bleeding and no further anticoagulation. 4. Hypertension. 5. Chronic renal failure on peritoneal dialysis. 6. Persistent hypotension. 7. History of hypercalcemia. 8. Last echocardiogram revealed preserved left ventricular systolic function, functioning aortic valve with mild restriction of mitral valve movement. HOME MEDICATIONS: 1. PhosLo 2. Calcium acetate. 3. Amaryl. 4. Januvia. 5. Glimepiride. 6. Midodrine 10 t.i.d. 7. Amiodarone 200 mg a day. 8. Lipitor 40. 9. Lantus Solo Star insulin. 10. Aspirin 81 mg a day. 11. Plavix 75 mg a day. OTHER SURGERIES: 1. Tonsillectomy. 2. Detached retina. 3. Cataract removed. 4. Cholecystectomy. 5. Appendectomy. 6. Hernia repair. PHYSICAL EXAMINATION: Vital Signs: Blood pressure 80/60. Cardiovascular: First and second heart sounds were heard. There was faint murmur. Respiratory: Normal air entry. There is no crepitations or rhonchi. Abdomen: Soft. Peritoneal dialysis catheter noted. Central nervous system: Alert and oriented, was moving all 4 extremities. Extremities: Examination of extremities revealed no pedal edema. LABORATORY DATA: WBC 11.5, hemoglobin 9.9 hematocrit. 30.6, platelet count of 169,000. Sodium 129, potassium 4.9, BUN 57, creatinine 6.6. Troponin abnormal at 0.626. CK-MB 19 with a CK of 1615, CK index of 1.2. Electrocardiogram revealed low-voltage complexes. Sinus rhythm with first- degree AV block. Left anterior fascicular block. ASSESSMENT AND PLAN: 1. Mr. Jonathan Cardona is a 73-year-old gentleman who has had persistent hypotension, status post transcatheter aortic valve replacement, paroxysmal atrial fibrillation, now in sinus rhythm. 2. Diabetes. 3. History of gastrointestinal bleeding in the past. 4. Chronic renal failure on peritoneal dialysis. 5. He has been noted to have severe weakness when he went to have chest x-ray, admitted from the x-ray department, came to the emergency room subsequently admitted to the floor. From a cardiac standpoint, he had a recent echocardiogram was done which was unremarkable. He has low voltage complexes. We will get a limited echocardiogram done again to look at and rule out any pericardial effusion and have a look at his ejection fraction and transcatheter aortic valve replacement. 6. Abnormal cardiac enzymes. No chest pain. No acute ST-T changes on the EKG this may be related to renal insufficiency. However in the past his troponins were normal. We will get serial cardiac enzymes. 7. Persistent hypotension. He is on midodrine I have not made any changes. 8. Diabetes continue with Amaryl and Januvia. 9. He has had paroxysmal atrial fibrillation. He is in sinus rhythm. He is only on amiodarone 200 mg a day. I have not made any changes to his medication. 10. As far as cardiac enzymes are concerned, we will get serial cardiac enzymes as well. Thank you for the consult. cc: MD Nabeel Zee MD
[2019-02-08 16:11] LABS: CK INDEX 1.2 (0.0-2.5); CK-MB 15.65 ng/mL (0.0-5.0)
[2019-02-08] MEDS: PHOSLO PO SCH (17:29)
--- NOTE | 2019-02-08 19:54 | ECHO REPORT ---
ORDER DATE: 02/08/2019 INTERPRETING PHYSICIAN: Pa Lewis MD. PROCEDURE: Limited echocardiogram. INDICATION: Evaluation of ejection fraction status post transaortic valve replacement; aortic valve disease. M-MODE MEASUREMENTS: Left ventricle end diastole: 3.9 cm. Left ventricle end systole: 2.5 cm. Posterior wall: 1.1 cm. Interventricular septum: 1.2 cm. Left atrium: Not measured. SUMMARY OF 2-DIMENSIONAL IMAGIN. The left ventricle function appears to be normal. Ejection fraction is 70%. No wall motion abnormalities. 2. Mitral annulus shows dense calcification. 3. The aortic valve is calcified. There is restricted opening. Maximum gradient is 21 mmHg. Mean gradient is 17 mmHg. That would be consistent with adequate function post transaortic valve replacement. 4. There is no pericardial effusion, no mass and no thrombus. Clinical correlation is recommended. cc: MD Mark Guzman MD Amit V. Vora, MD
--- NOTE | 2019-02-08 21:02 | HISTORY AND PHYSICAL ---
HISTORY OF PRESENT ILLNESS: Mr. Cardona, who is a known case of end-stage renal failure, diabetes, hypertension, hyperuricemia, who has who recently had mitral valve surgery for mitral replacement. He is under the care of Dr. Shen and Dr. Gomez for related problems. He has been doing fairly well. He does peritoneal dialysis at home and recently felt very bad. He was seen by Dr. Shen very recently, and his hemoglobin was stable at that time. He also has problems with recurrent anemia and gets transfusions. Mr. Cardona has been feeling very weak, very short of breath. He cannot stand up. PAST MEDICAL HISTORY/MEDICATIONS: He has orthostatic hypotension, and he was placed on medication for it, which is midodrine 10 mg 3 times a day. His other medications include sitagliptin, polyethylene glycol, Zofran, gastral 40 mg b.i.d., glimepiride 2 mg daily, Uloric 40 mg daily, Zocor 40 mg daily, albuterol inhaler, amiodarone 200 mg daily, dicyclomine p.r.n., and folic acid 800 mcg daily. He cannot tolerate any antihypertensive medications on account of low blood pressure. PAST SURGICAL HISTORY: Other than the peritoneal dialysis catheter and shunt, he had appendicectomy, tonsillectomy, as well as cholecystectomy done in the past. He had mitral valve replacement. REVIEW OF SYSTEMS: Other than generalized weakness and shortness of breath and cannot stand up without dizziness, it is noncontributory. PHYSICAL EXAMINATION: GENERAL: The patient is alert, oriented. VITAL SIGNS: Physical examination at present, reveals temperature normal, pulse 78 per minute, respiratory rate 22 per minute, blood pressure 118/76. HEENT AND NECK: Head normocephalic. Pupils PERRLA. Fundus examination not done. The neck is supple. JVP normal. ENT examination unremarkable. There is no evidence of lymphadenopathy, thyroid enlargement, pedal edema, calf tenderness, anemia, cyanosis or clubbing. Pedal pulses well felt. BREASTS: On breast exam, normal. CHEST: Normal inspection. LUNGS: Clear, reveal bilateral basal rales. PMI in the normal position. HEART: Sounds normal. There is a short systolic murmur at the apex. No gallop or rub noted. ABDOMEN: Nondistended. Hernial orifices normal. No guarding, rigidity, free fluid, masses, or organomegaly. Bowel sounds normal. RECTAL: Deferred. CENTRAL NERVOUS SYSTEM: Higher functions normal. Cranial nerves normal. Motor and sensory system examination unremarkable. Deep tendon reflexes normal. Plantars downgoing. SPINE EXAMINATION: Normal for age. No cerebellar signs or signs of meningeal irritation. LOCOMOTOR: The locomotor and motor exam unremarkable. SKIN: Unremarkable except for presence of mild dehydration. CLINICAL IMPRESSION: Congestive heart failure, dehydration, mild orthostatic hypotension. PLAN: To continue with the current management. Start IV fluids on him. Watch him on telemetry. cc: Nabeel Kinney MD
[2019-02-08] MEDS: ZOCOR PO SCH (21:03)
[2019-02-08] MEDS: MEGACE PO SCH (21:04)
[2019-02-08] MEDS: REMERON PO SCH (21:06)
[2019-02-08 22:03] LABS: CK INDEX 1.3 (0.0-2.5); CK-MB 15.44 ng/mL (0.0-5.0)
[2019-02-08] MEDS: HUMULIN R SUBQ SCH (23:26)
[2019-02-08] MEDS: AMBIEN PO SCH (23:26)
[2019-02-09] MEDS: DUONEB (A & A) INH SCH ×4 (03:57→22:31)
[2019-02-09] MEDS: HUMULIN R SUBQ SCH ×4 (06:35→21:50)
[2019-02-09 07:03] LABS: CALCIUM 8.5 mg/dL (8.8-10.2); CREATININE 6.5 mg/dL (0.7-1.2); POTASSIUM 4.3 mmol/L (3.5-5.1)
[2019-02-09] MEDS: MIRALAX PO SCH (08:48)
[2019-02-09] MEDS: FOLIC ACID PO SCH (08:50)
[2019-02-09] MEDS: PROAMATINE PO SCH ×3 (08:50→17:23)
[2019-02-09] MEDS: AMARYL PO SCH (08:50)
[2019-02-09] MEDS: ULORIC PO SCH (08:50)
[2019-02-09] MEDS: NEPHRO-VITE PO SCH (08:51)
[2019-02-09] MEDS: CORDARONE PO SCH (08:51)
[2019-02-09] MEDS: JANUVIA PO SCH (08:51)
[2019-02-09] MEDS: PHOSLO PO SCH ×3 (08:51→17:23)
[2019-02-09] MEDS: MEGACE PO SCH ×2 (08:51→21:06)
--- NOTE | 2019-02-09 09:20 | NEPHROLOGY PROGRESS NOTE ---
DATE: 02/08/2019 REASON FOR ADMISSION: Shortness of breath. REASON FOR CONSULTATION: ESRD management, assist with management. CONSULTING PHYSICIAN: Dr. Kinney. HISTORY OF PRESENT ILLNESS: This is a 73-year-old gentleman known to our service for end-stage renal disease on peritoneal dialysis. He was seen in our office this Monday. At that time, he had extremely low blood pressures. He was given a liter of fluid. His dialysate plan was changed to 1.5% solution to not remove fluid, but to keep euvolemic. He continued to have shortness of breath. We sent him this morning for a chest x-ray, secondary to the fact that the patient did have pneumonia earlier this year. That chest x-ray was clear, but during that time the patient became extremely short of breath and was taken around to the emergency room for evaluation. He has been admitted to the hospital for further workup and treatment. We have been asked to see him and assist with management. Patient states that as long as he is lying still and not doing anything, he is able to manage with his breathing. He says any type of movement or exertion whatsoever completely takes his breath away. He really felt like that if he had went home, he would not even have been able to get out of his car. In the emergency room, the patient was afebrile, pulse was marginal at 105/50. He had been placed on room air and was maintaining saturations. The patient did have lab work done in the ED. His CK and CK-MB were elevated and likely felt secondary to his cardiac issues. Chest x-ray again was negative for acute disease. PAST MEDICAL HISTORY: End-stage renal disease on peritoneal dialysis, diabetes, hyperphosphatemia, gout, hyperlipidemia, anemia, history of atrial fibrillation, history of GI bleed. PAST SURGICAL HISTORY: PD catheter. ALLERGIES: Tamiflu. HOME MEDICATIONS: Have not been reconciled, but are listed in the chart currently as Uloric, folic acid, Amaryl, protamine, Zocor, Januvia, Dialyvite, Remeron, Tylenol, DuoNeb, Cordarone, PhosLo, Megace, Zofran, MiraLAX and Bentyl. FAMILY HISTORY: Noncontributory. SOCIAL HISTORY: He is . His is at the bedside. There was no tobacco, EtOH or illicit drug use. REVIEW OF SYSTEMS: Pertinent positives noted above, but primarily shortness of breath and significant weakness on any type of exertion. PHYSICAL EXAMINATION: Vital Signs: Temperature afebrile, pulse 78, respiratory rate 18, blood pressure currently 118/66. General: This is an elderly gentleman resting in bed. He is awake and alert. He is in no acute distress. He does become short of breath when trying to talk. HEENT: Normocephalic, atraumatic. His conjunctivae are pale. His oral mucosa is dry. Neck: Supple without JVD. Cardiovascular: Reveals a regular rate. Pulmonary: There are no wheezes or rhonchi. Abdomen: Soft, with positive bowel sounds. PD catheter is clean, dry and intact. : Continues to void. Extremities: No edema Integumentary: Skin is warm and dry. Neurologic: Grossly nonfocal. LAB DATA: WBC of 11.1, hemoglobin 9.9. PT 13.4, INR 0.9 and PTT of 30.1. Sodium 129, potassium 4.9, CO2 23, creatinine 6.6. Calcium 8.9, magnesium 2.1. AST 186, ALT 236, alkaline phosphatase 307, CK 1615, CK-MB 19.3, troponin-T 0.62. He had a proBNP of 8200. Albumin is 2.8. ASSESSMENT AND PLAN: 1. End-stage renal disease on peritoneal dialysis. We will continue the patient on his routine outpatient plan. That is currently 9 hours, 2.5 fill volume and 1.5 liters last fill volume with a 1.5% Dianeal solution. 2. Shortness of breath. Workup continues. Again, his chest x-ray was negative for acute disease, but the patient was obviously short of breath when I was speaking to him. We will check a D-dimer on the patient. I thought it had been ordered in the emergency room, but I am not finding it. Dictated by CANELO Cleaning for Rigo Shen MD cc: MD Nabeel Person MD
[2019-02-09] MEDS ORDERED: NON-FORMULARY MED (Ferric Citrate [Auryxia] 210 MG) PO SCH (17:00)
--- NOTE | 2019-02-09 19:33 | PROGRESS NOTE ---
DATE: 02/09/2019 SUBJECTIVE: A 73-year-old white gentleman admitted yesterday with fatigue, weakness, low blood pressure. History of dysautonomia. On peritoneal dialysis. He denies any chest pain. He was seen by Dr. Haq, as well as having had a transcatheter aortic valve replacement recently. REVIEW OF SYSTEMS: No chest pain, shortness of breath. Low blood pressure upon standing. Well known to the peritoneal dialysis clinic. No swelling of feet.Neurological: No neurological symptoms or weakness or seizures. PAST MEDICAL HISTORY: Reviewed. PAST SURGICAL HISTORY: Reviewed. MEDICINES: Reviewed. ALLERGIES: Tamiflu. PHYSICAL EXAMINATION: Vital Signs: Temperature is 98, blood pressure is 99/49, pulse is 78, 100% on room air. HEENT: Slightly pale. Neck: Supple. Chest: Bilateral air entry. Heart: Sounds are regular. No murmurs appreciated. Abdomen: Belly is soft. Peritoneal dialysis catheter. Extremities: No peripheral edema. Neurologic: No obvious neurological deficits. INVESTIGATIONS: Sodium 129, potassium 4.3, BUN 56, creatinine 6.5, glucose 128, calcium 8.5. Elevated liver function tests. CK index is negative. Echocardiography showed stable aortic valve replacement. Excellent LV systolic function. ASSESSMENT AND PLAN: 1. Fatigue and weakness due to dysautonomia. Currently he is on ProAmatine 10 mg t.i.d. 2. End-stage kidney disease, on peritoneal dialysis. 3. Type 2 diabetes, on glimepiride 2 mg in the morning and Januvia. 4. Insomnia, on Ambien. 5. Gout, on Uloric 40 in the morning. 6. Hyperlipidemia, on simvastatin. 7. Chronic insomnia, on Remeron. 8. Elevated liver function tests, elevated CK. We are monitoring the liver function tests. Currently asymptomatic. We will check the ultrasound. Slowly out of the bed with physical therapy. 9. Reconcile home medications and will follow up. LEVEL OF DOCUMENTATION: 35 minutes. cc: MD Nabeel Villegas MD
--- NOTE | 2019-02-09 19:56 | NEPHROLOGY PROGRESS NOTE ---
DATE: 02/09/2019 SUBJECTIVE: Patient resting in bed. No complaints this morning. OBJECTIVE: Vital Signs: Temperature 98 degrees, pulse 78, respiratory rate 18, blood pressure 99/49, intake 944 mL output 1.5 L . General: This is an elderly gentleman resting in bed awake alert. He is in no acute distress. States that he did become short of breath when he got up to go to the bathroom this morning . HEENT: Normocephalic, atraumatic. MIKE. Neck: Supple. No JVD. Cardiovascular: Regular rate and rhythm. Pulmonary: He has no rhonchi, remains on room air. Abdomen: Soft, positive bowel sounds PD catheter noted. : Not inspected. Extremities: No clubbing, cyanosis, edema Integumentary: Skin is warm and dry. LAB DATA: Sodium 129, potassium 4.3, CO2 26, creatinine 6.5. ASSESSMENT AND PLAN: 1. Chronic kidney disease 5D. Continue on current dialysis plan make no changes from yesterday. 2. Hypokalemia, patient had intravenous resuscitation overnight. We will stop his IV fluids today if not already secondary to his fluid volume status we do not wish for him to become fluid overloaded. He is about a half a liter negative overnight with the current treatment plan. 3. Shortness of breath. He had no pericardial effusion noted on his echocardiogram, his D-dimer was noted to be high, he is being followed by his primary. Dictated by CANELO Cleaning for Rigo Shen MD cc: MD Nabeel Person MD [facility]
--- NOTE | 2019-02-09 20:43 | CARDIOLOGY PROGRESS NOTE ---
DATE: 02/09/2019 SUBJECTIVE: Mr. Cardona complains of continued lightheadedness whenever he stands up. No chest pain. PHYSICAL: Afebrile. Heart rate 89, blood pressure 106/59.General: He is in no acute distress. Cardiovascular: He sounds to be in a regular rate and rhythm. I do not hear any obvious murmurs present. He has no S3. He has no lower extremity edema. Chest: Sounds clear bilaterally. He has no increased work of breathing. Abdomen: Soft, nontender. PERTINENT DATA: His echocardiogram showed a preserved EF of 70%, mild LVH. Mean gradient across the aortic valve is 17 which would be consistent with adequate functioning after the valve replacement. His sodium is 129, potassium 4.3, BUN 56, creatinine 6.5. ASSESSMENT: Mr. Cardona is a 73-year-old gentleman who presented for significant orthostasis. PLAN: He is not having any anginal complaints. He is on midodrine with limited improvement. He had cardiac catheterizations in the past which did not demonstrate really any significant blockages. He has had an evaluation of his adrenal system which appears to be functioning adequately. His most recent TSH check was in October and was normal. Could possibly consider trial of Florinef. From a cardiovascular standpoint, I do not really have any acute recommendations. cc: MD Nabeel Shipman MD
[2019-02-09] MEDS: ZOCOR PO SCH (21:06)
[2019-02-09] MEDS: AMBIEN PO SCH (21:07)
[2019-02-09] MEDS: REMERON PO SCH (21:07)
[2019-02-10] MEDS: DUONEB (A & A) INH SCH ×4 (03:41→22:56)
[2019-02-10 06:09] LABS: BASO# 0.08 X1000 (0.0-0.2); BASO% 0.7 % (0.0-0.8); EOS# 0.21 X1000 (0.0-0.7); EOS% 1.9 % (0.0-10.0); HEMATOCRIT 28.5 % (42.0-52.0); HEMOGLOBIN 9.3 g/dL (14.0-18.0); IMM GRAN# 0.13 X1000 (0.0-0.04); IMM GRAN% 1.1 % (0.0-0.5); LYMPH# 1.82 X1000 (1.2-3.4); LYMPH% 16.1 % (20.5-51.1); MCH 32.4 PG (27-31); MCHC 32.6 g/dL (33-37); MCV 99.3 FL (81-99); MONO# 1.27 X1000 (0.11-0.59); MONO% 11.2 % (1.7-9.3); MPV 10.1 FL (7.4-10.4); NEUT# 7.82 X1000 (1.4-6.5); PLT 149 X1000 (130-400); RBC 2.87 XMIL (4.7-6.1); RDW 15.7 % (11.5-14.5); WBC 11.33 X1000 (4.8-10.8)
[2019-02-10] MEDS: HUMULIN R SUBQ SCH ×4 (06:27→22:12)
[2019-02-10 06:41] LABS: TSH 3.64 uIUmL (0.27-4.20)
[2019-02-10 06:57] LABS: ALBUMIN 2.5 g/dL (3.5-5.0); CALCIUM 8.9 mg/dL (8.8-10.2); CK INDEX 1.3 (0.0-2.5); CK-MB 13.16 ng/mL (0.0-5.0); CREATININE 6.7 mg/dL (0.7-1.2); POTASSIUM 4.4 mmol/L (3.5-5.1); TOTAL BILIRUBIN 0.42 mg/dL (0.20-1.00); TOTAL PROTEIN 4.9 g/dL (6.3-8.3)
[2019-02-10 07:15] LABS: SED RATE 65 mm/hr (0-15)
[2019-02-10] MEDS ORDERED: NEPHRO-VITE PO SCH (09:00)
[2019-02-10] MEDS: MIRALAX PO SCH (09:18)
[2019-02-10] MEDS: ULORIC PO SCH (09:18)
[2019-02-10] MEDS: NEPHRO-VITE PO SCH (09:19)
[2019-02-10] MEDS: FOLIC ACID PO SCH (09:19)
[2019-02-10] MEDS: AMARYL PO SCH (09:19)
[2019-02-10] MEDS: PROAMATINE PO SCH ×3 (09:19→16:41)
[2019-02-10] MEDS: PHOSLO PO SCH ×3 (09:19→16:41)
[2019-02-10] MEDS: PLAVIX PO SCH (09:20)
[2019-02-10] MEDS: ASPIRIN EC PO SCH (09:20)
[2019-02-10] MEDS: JANUVIA PO SCH (09:20)
--- NOTE | 2019-02-10 13:40 | PROGRESS NOTE ---
DATE: 02/10/2019 SUBJECTIVE: The patient is weak. OBJECTIVE: Blood pressure was dropping and temperature is 98 degrees. Vitals are stable. HEENT Examination: Pale. Chest is clear. Heart sounds are regular. Belly is soft, nontender. No peripheral edema. No obvious neurological deficits. Labs: CBC: White cell count 11, hematocrit 28, platelets 149,000. Sedimentation rate was 69. Sodium 131, potassium 4.4, chloride 91, BUN 55, creatinine 6.7. Elevated liver function tests. CK was still high. B12 and TSH are normal. ASSESSMENT AND PLAN: 1. Orthostatic hypotension due to dysautonomia. No evidence of structural heart disease. Echocardiogram was normal. He is on ProAmatine 10 mg three times a day along with Florinef and salt. 2. End-stage kidney disease, on peritoneal dialysis. 3. Gout, on Uloric. 4. Elevated liver function tests. We will follow up on ultrasound of the abdomen and Dr. Kinney is going to follow up. LEVEL OF DOCUMENTATION: 25 minutes. cc: MD Nabeel Villegas MD
[2019-02-10] MEDS: CORDARONE PO SCH (16:39)
[2019-02-10] MEDS: REMERON PO SCH (22:11)
[2019-02-10] MEDS: AMBIEN PO SCH (22:11)
[2019-02-11] MEDS: DUONEB (A & A) INH SCH ×4 (03:46→21:29)
[2019-02-11 06:27] LABS: C REACTIVE PROT QUANT 31.54 mg/L (0.00-5.00)
[2019-02-11 06:38] LABS: ALB/GLOB RATIO 0.8; ALBUMIN 2.4 g/dL (3.5-5.0); CALCIUM 8.7 mg/dL (8.8-10.2); CREATININE 6.4 mg/dL (0.7-1.2); POTASSIUM 4.9 mmol/L (3.5-5.1); TOTAL BILIRUBIN 0.48 mg/dL (0.20-1.00); TOTAL PROTEIN 5.3 g/dL (6.3-8.3)
[2019-02-11] MEDS: HUMULIN R SUBQ SCH ×4 (07:08→23:06)
[2019-02-11 07:39] LABS: CK INDEX 1.7 (0.0-2.5); CK-MB 14.68 ng/mL (0.0-5.0)
[2019-02-11] MEDS: PHOSLO PO SCH ×3 (07:59→17:05)
[2019-02-11] MEDS: NEPHRO-VITE PO SCH (07:59)
[2019-02-11] MEDS: PLAVIX PO SCH (07:59)
[2019-02-11] MEDS: AMARYL PO SCH (08:00)
[2019-02-11] MEDS: PROAMATINE PO SCH ×3 (08:01→17:05)
[2019-02-11] MEDS: JANUVIA PO SCH (08:01)
[2019-02-11] MEDS: ULORIC PO SCH (08:02)
[2019-02-11] MEDS: FOLIC ACID PO SCH (08:02)
[2019-02-11] MEDS: ASPIRIN EC PO SCH (08:02)
[2019-02-11] MEDS: MIRALAX PO SCH (08:07)
--- NOTE | 2019-02-11 09:24 | PROGRESS NOTE ---
DATE: 02/11/2019 Mr. Cardona continues to be hypotensive. He says he cannot stand up. We ordered orthostatic blood pressure check. His pressure was 92/17 this morning. He has elevated liver enzymes. Abdominal ultrasound has been ordered. He had a cholecystectomy done in the past. I am going to order the hepatitis profile on him too. We will make some changes in his medications, particularly amiodarone dose. Overall condition is not much changed. He is still extremely weak. The sodium was 129 again this morning. We will continue to watch him closely. cc: Nabeel Kinney MD
--- NOTE | 2019-02-11 10:18 | Diag Imaging Result Doc PS360 ---
US ABDOMEN-COMPLETE - 02/11/2019 INDICATION: Elevated LFT COMPARISON: 10/29/2015 FINDINGS: There is mild to moderate ascites. The liver is increased echotexture compatible with cirrhosis or diffuse fatty change. The liver is atrophic. The spleen is enlarged. The spleen measures 12 x 12 x 5.7 cm. The gallbladder is surgically absent. The pancreas is mostly obscured but otherwise normal. The left kidney is obscured. The right kidney is very atrophic and hyperechoic. No hydronephrosis. The right kidney measures 8.9 x 4.6 x 4.6 in meters. Common bile duct measures 5.6 mm. Aorta, IVC, and main portal vein are patent. IMPRESSION: 1. Hyperechoic atrophic liver suggesting cirrhosis. 2. Splenomegaly. 3. Ascites. 4. Rather atrophic right kidney. Left kidney is obscured. Electronically signed by Franklin Anthony 02/11/2019 10:15 AM
--- NOTE | 2019-02-11 10:21 | HISTORY AND PHYSICAL ---
ADDENDUM TO HISTORY AND PHYSICAL: There was an error in the history, physical. He did not have mitral valve replacement, but he had aortic wall replacement. cc: Nabeel Kinney MD
[2019-02-11] MEDS: CORDARONE PO SCH (11:14)
--- NOTE | 2019-02-11 12:54 | NEPHROLOGY PROGRESS NOTE ---
DATE: 02/11/2019 SUBJECTIVE: Patient is sitting up in bed. He continues with weakness. OBJECTIVE: Vital Signs: Temperature 98.2 degrees, pulse 90, respiratory rate 17, blood pressure 92/47. Intake and output: Intake 795 mL. Output 299 mL. General: Elderly gentleman resting in bed. Awake and alert. He does not appear in acute distress. HEENT: Normocephalic, atraumatic. Oral mucosa moist. MIKE. He has glasses in place. Neck: Supple without JVD. Cardiovascular: Regular rate and rhythm. Pulmonary: He is clear bilaterally, equal excursion. Abdomen: Soft with positive bowel sounds. PD catheter noted. Clean, dry, and intact. Genitourinary: Voiding. Extremities: No clubbing, cyanosis. No edema. Integumentary: Skin is pale, warm, and dry. LABORATORY DATA: Sodium 129, potassium 4.9, chloride 88, CO2 of 25, BUN 54, creatinine 6.4. He has a CRP of 31.54. CK-MB of 14.68, CK 81. Albumin is 2.4, calcium 8.7, AST 137, ALT 196, and alkaline phosphatase 227. ASSESSMENT AND PLAN: 1. Chronic kidney disease, 5D. We have continued him on a 1.5 Dianeal solution throughout treatment. The patient has remained fairly euvolemic with this plan. 2. Shortness of breath, weakness. [place] to be secondary to dysautonomia. His echocardiogram was normal, no evidence of structural heart disease. He remains on protamine 10 mg 3 times a day, Florinef, and salt. 3. Elevated liver function tests. He has an ultrasound of the abdomen ordered. Dictated by CANELO Cleaning for Rigo Shen MD Face to face encounter, data reviewed, discussed with Krys Salcedo on 02/11/19. I agree with the above assessment and plan of care. cc: MD Nabeel Person MD MTDD
[2019-02-11] MEDS ORDERED: DUONEB (A & A) ONE (16:24)
[2019-02-11] MEDS ORDERED: HUMULIN R ONE (17:00)
--- NOTE | 2019-02-11 20:12 | CARDIOLOGY PROGRESS NOTE ---
DATE: 02/11/2019 SUBJECTIVE: Mr. Cardona is not having any pain complaints. He continues to have lightheadedness, dyspnea and dizziness. PHYSICAL: Vital signs: He is afebrile. Heart rate 96. Blood pressure is 78/46. General: He is in no acute distress, ill-appearing. Cardiovascular: He is in a regular rate and rhythm. I do not hear any obvious murmurs. He has no S3. He has no lower extremity edema. Chest: His chest is clear to auscultation bilaterally. He has no increased work of breathing. Abdomen: His abdomen is soft, nontender. PERTINENT DATA: His sodium is 129, potassium 4.9, BUN is 54, creatinine 6.4. His LFTs have been continuously elevated with an AST of 137, ALT 196. His albumin is 2.4. ASSESSMENT: Mr. Kwok is a 73-year-old gentleman with end-stage renal disease. PLAN: He continues to have significant degree of dizziness. We will plan to do a transesophageal echocardiogram in the morning to evaluate his TAVR and make sure he does not have any sort of perivalvular leak. May consider further evaluations in the future to evaluate possible restriction. cc: MD Nabeel Shipman MD
[2019-02-11] MEDS: AMBIEN PO SCH (23:06)
[2019-02-11] MEDS: LIPITOR PO SCH (23:06)
[2019-02-11] MEDS: REMERON PO SCH (23:06)
[2019-02-12] MEDS: DUONEB (A & A) INH SCH ×4 (03:22→22:00)
[2019-02-12 06:23] LABS: ALB/GLOB RATIO 0.8; ALBUMIN 2.3 g/dL (3.5-5.0); CALCIUM 8.8 mg/dL (8.8-10.2); CREATININE 6.9 mg/dL (0.7-1.2); POTASSIUM 4.6 mmol/L (3.5-5.1); TOTAL BILIRUBIN 0.38 mg/dL (0.20-1.00); TOTAL PROTEIN 5.1 g/dL (6.3-8.3)
[2019-02-12] MEDS: HUMULIN R SUBQ SCH ×4 (06:42→21:15)
[2019-02-12] MEDS: NS 1,000 ML IV SCH ×2 (06:51→12:33)
--- NOTE | 2019-02-12 09:32 | PROVIDER DOCUMENTATION ---
This chart was entered by Sultana Osborn Scribe, acting as scribe for Isra aWrd MD. HPI-General Adult - General Chief Complaint: Weakness Stated Complaint: SOB / WEAK Time Seen by Provider: 02/08/19 11:30 Source: patient, family () Allergies/Adverse Reactions: Patient Allergies Allergy/AdvReac Type Severity Reaction Status Date / Time oseltamivir [From Tamiflu] Allergy ALTERED Verified 07/22/18 11:01 MENTAL STATUS Home Medications: Home Medication List Medication Instructions Recorded Confirmed Last Taken Type Febuxostat [Uloric] 40 mg PO QAM 08/25/18 02/08/19 Unknown History Folic Acid 800 mcg PO QAM 08/25/18 02/08/19 08/24/18 09:00 History Midodrine [Proamatine] 10 mg PO TID 08/25/18 02/08/19 08/24/18 09:00 History Menthol/Zinc Oxide Ointment 1 gm TOP PRN PRN tube 09/04/18 02/08/19 Unknown Rx [Calmoseptine Ointment] Mirtazapine [Remeron] 30 mg PO QHS tablet 09/04/18 02/08/19 Unknown Rx Polyethylene Glycol 3350 [Miralax] 17 gm PO DAILY powder, packet 09/04/18 02/08/19 Unknown Rx Amiodarone [Cordarone] 100 mg PO DAILY 02/08/19 02/08/19 Unknown History Aspirin [Adult Aspirin Regimen] 81 mg PO DAILY 02/08/19 02/08/19 Unknown History Atorvastatin Calcium [Lipitor] 40 mg PO DAILY 02/08/19 02/08/19 Unknown History Clopidogrel [Plavix] 75 mg PO DAILY 02/08/19 02/08/19 Unknown History Ferric Citrate [Auryxia] 210 mg PO TID 02/08/19 02/08/19 Unknown History Folic Acid/Vit Bcomp,C [Dialyvite 0.8 mg PO DAILY 02/08/19 02/08/19 Unknown History 800 Tablet] Glimepiride [Amaryl] 1 mg PO QAM 02/08/19 02/08/19 Unknown History Melatonin 10 mg PO QHS 02/08/19 02/08/19 Unknown History Sitagliptin [Januvia] 50 mg PO DAILY 02/08/19 02/08/19 Unknown History Insulin Glargine,Hum.rec.anlog 100 unit SQ PRN PRN 02/10/19 02/10/19 Unknown History [Cristina Warren] - History of Present Illness -Gen Adult Nature of Presenting Problems: 73yom presents to ED cc low blood pressure, SOB and generalized weakness for a few days. Pt is st bedside and reports pt had heart valve replaced 09/11/18, is on Plavix and is on peritoneal dialysis, every night. Pt has hx of AFIB, HTN and DM. Location of Pain/Injury: reports: none Pain Radiation: reports: no radiation Quality of Pain: reports: none Onset/Duration: reports: 2 days ago Timing: reports: still present, constant, getting worse Context/Activities at Onset: reports: light activity Modifying Factors: improves with: nothing Associated Symptoms: reports: shortness of breath, weakness Similar Symptoms Previously?: Yes Recently seen or treated by another doctor?: No Review of Systems - Adult - REVIEW OF SYSTEMS - ADULT Constitutional: reports: see HPI, chills, fatique. denies: fever Eyes: reports: no symptoms reported Ears, Nose, Mouth & Throat: reports: no symptoms reported Cardiovascular: reports: see HPI, other (low blood pressure). denies: chest pain Respiratory: reports: see HPI, shortness of breath. denies: cough Gastrointestinal: reports: no symptoms reported Genitourinary: reports: no symptoms reported Musculoskeletal: reports: no symptoms reported Integumentary: reports: no symptoms reported Neurological: reports: no symptoms reported Psychiatric: reports: no symptoms reported Endocrine: reports: no symptoms reported Hematologic/Lymphatic: reports: no symptoms reported Allergic/Immunologic: reports: no symptoms reported All Other Systems: Reviewed and Negative Past History - Adult - PAST MEDICAL HISTORY-ADULT Review of Records: reports: Nursing Assessment Review, Medications Reviewed, Social history reviewed & non-contributory. Major Childhood Illnesses: reports: denies history Cardiovascular: reports: A-Fib, HTN Respiratory: reports: denies history Gastrointestinal: reports: denies history Obstetrical/Gynecological: reports: denies history Genitourinary: reports: dialysis, kidney disease Musculoskeletal: reports: denies history Neurological: reports: denies history Endocrine/Immune: reports: Diabetes Other Conditions: reports: denies history - PRIOR SURGERIES/PROCEDURES Surgical/Procedure History: reports: reviewed, not pertinent, appendectomy, cholecystectomy, tonsillectomy, hernia repair - IMMUNIZATION STATUS Childhood Immunizations: See Nurse Assessment Flu Vaccine: See Nurse Assessment - FAMILY HISTORY Family History: reviewed, not pertinent Physical Exam-General - PHYSICAL EXAM-ADULT Initial Vital Signs Reviewed: Yes - CONSTITUTIONAL General Appearance: alert. negative: appears well, anxious, combative - EYES Eyes: PERRL/EOMI, pink conjunctivae. negative: meningismus, pale conjunctivae, photophobia - HEAD, EARS, NOSE, MOUTH & THROAT HENMT: normocephalic/atraumatic, moist mucous membranes, normal ENT inspection. negative: angioedema - RESPIRATORY Respiratory: chest non-tender, lungs clear, normal breath sounds, no pleuratic chest pain, no respiratory distress, no accessory muscle use. negative: crackles, rales, rhonchi, stridor, wheezing - CARDIOVASCULAR Cardiovascular: normal peripheral pulses, regular rate, rhythm. negative: no edema, no gallop, no JVD, no murmur, bradycardia, tachycardia - SKIN Integumentary: normal color, warm/dry. negative: cyanosis, diaphoresis, jaund ice - PSYCHIATRIC Psych/Mental Status: normal mood/affect, normal thought content, normal thought process, oriented x 3. negative: disoriented x 3, anxious, disheveled, depressed affect Progress - PLAN OF CARE/RESULTS Progress/Plan/Lab Results: Vital Signs - 8 hr 02/08/19 11:12 Pulse Rate 103 H Respiratory Rate 16 Blood Pressure 79/53 O2 Sat by Pulse Oximetry 100 Orders Category Date Time Status FSBS/Accucheck Result NOW Care 02/08/19 11:41 Ordered CHEST-PORTABLE [RAD] NOW Exams 02/08/19 11:42 Ordered CBC WITH ELECTRONIC DIFF [HEME] Stat Lab 02/08/19 11:41 Uncollected CK PROFILE [SP CHEM] Stat Lab 02/08/19 11:41 Uncollected COMPREHENSIVE METABOLIC PANEL [CHEM] Stat Lab 02/08/19 11:41 Uncollected MAGNESIUM [CHEM] Stat Lab 02/08/19 11:41 Uncollected PROTIME WITH INR [COAG] Stat Lab 02/08/19 11:41 Uncollected PTT [COAG] Stat Lab 02/08/19 11:41 Uncollected TROPONIN T Stat Lab 02/08/19 11:41 Uncollected Result Diagrams: 02/10/19 05:45 02/12/19 05:10 - EKG 1 Time of EKG reading by physician:: 11:54 EKG Read and Signed by:: Isra Ward EKG Interpretation (*Must complete 3 of following elements*): Abnormal (left anterior block pulmonary disease pattern) Rate: 83 Rhythm: sinus w/1st degree AV block QRS: normal ST Wave: normal - CONSULTS/PCP/HOSPITALIST Notification #1 *Consult/PCP/Hospitalist*: Dr. Kinney Time Discussed: 11:49 Consult Disposition: Will see in ED #2 Consult: Dr. Kinney Time Discussed: 12:32 Consult Disposition: Admit (spoke face to face with him and he will admit pt) Departure - Departure Date of Disposition Decision: 02/08/19 Time of Disposition Decision: 13:00 DIAGNOSIS: Weakness, Hypotension Disposition: ADMITTED INPATIENT 09 Certified Medical Emergency: Emergent Condition: Serious - Critical Care Note This patient required my direct & personal management of CC.: Yes Total Time (mins): 32 Critical Care Statement: This patient required my direct personal management to treat or rule out processes, the absence of which, could potentiallly result in sudden, clinically significant life or limb threatening deterioration. Attestation - Physician/ PILAR Attestation Patient care was provided by Advanced Practice Provider:: No The physician spent face to face time with patient:: Yes Advanced Practice Provider documentation review:: Supervising physician onsite and consulted in the evaluation and care of this patient. The physician did have a face to face encounter with the patient. This chart was documented by the indicated scribe, (Sultana Osborn Scribe) and accurately reflects the services I performed and decisions made by me, Isra Ward MD, as attested by the provider's signature.
[2019-02-12] MEDS ORDERED: DUONEB (A & A) ONE (09:55)
[2019-02-12] MEDS ORDERED: SODIUM CHLORIDE 0.9% 10 ML ONE (10:05)
[2019-02-12] MEDS ORDERED: XYLOCAINE 2% VISCOUS ONE (10:05)
[2019-02-12] MEDS ORDERED: XYLOCAINE 4% TOPICAL SOLUTION ONE (10:06)
[2019-02-12] MEDS ORDERED: VERSED ONE (10:06)
[2019-02-12] MEDS ORDERED: DEMEROL ONE (10:06)
[2019-02-12] MEDS: PHOSLO PO SCH ×3 (11:33→21:08)
[2019-02-12] MEDS: PROAMATINE PO SCH ×3 (11:34→18:17)
--- NOTE | 2019-02-12 12:46 | PROGRESS NOTE ---
DATE: 02/12/2019 SUBJECTIVE: Mr. Cardona still feels weak. He is hypotensive. Today, Physical Therapy tried to stand him up. However, they were unsuccessful. He is extremely weak. Hemoglobin has come down to 9.3. INR was 1. The D-dimer is a little high at 3.29. INR was 0.95. Sodium was 127, BUN 57, and creatinine 6.9. Blood sugar is still 221. Liver enzymes revealed total bilirubin of 0.38, AST 100, ALT 167, and alkaline phosphatase is 219. These values have definitely come down because the alkaline phosphatase has come down from 307 to 219. AST and ALT also have come down significantly. A hepatitis profile has been ordered. The results are not back. His lungs are clear. He has continuing dizziness. He is going to get the DHAVAL done today. cc: Nabeel Kinney MD
[2019-02-12 14:13] LABS: HEPATITIS PROFILE ACUTE SEE COMMENTS
[2019-02-12] MEDS: CORDARONE PO SCH (14:21)
[2019-02-12] MEDS: ULORIC PO SCH (14:21)
[2019-02-12] MEDS: FOLIC ACID PO SCH (14:21)
[2019-02-12] MEDS: ASPIRIN EC PO SCH (14:21)
[2019-02-12] MEDS: NEPHRO-VITE PO SCH (14:21)
[2019-02-12] MEDS: JANUVIA PO SCH (14:22)
[2019-02-12] MEDS: MIRALAX PO SCH (14:22)
[2019-02-12] MEDS: PLAVIX PO SCH (14:22)
[2019-02-12] MEDS: AMARYL PO SCH (14:22)
--- NOTE | 2019-02-12 14:29 | Transesophageal Echocardiogram ---
DATE: 02/12/2019 PHYSICIAN: Dr. Lewis REQUESTING PHYSICIAN: CLINICAL INDICATIONS: The patient is with hypotension, peritoneal dialysis, status post TAVR, abnormal transthoracic echocardiogram. I suspected mitral valve stenosis as well as malfunction of the prosthetic aortic valve. PROCEDURE: Transesophageal echocardiography DESCRIPTION: After the benefits, risks and complications of the procedure were discussed with the patient, he understood and requested to proceed. SUMMARY OF MAIN FINDINGS: The left atrium and appendage appear to be normal. Interatrial septum is intact. Tricuspid valve looks normal. There is a small right-sided chamber, right atrium and right ventricle. Pulmonic valve is normal. The mitral valve shows significant calcification of the annulus. Lateral mitral annulus is heavily calcified and the lateral leaflet of the mitral valve appear to be restricted. The anterior leaflet seemed to have better motion. There is a potentially significant gradient across the mitral valve: most of the measurements yielded JESUS of 22-24 mm Hg and mean G of 10-13 mm Hg. The PVC gradients reached 30 mm Hg (JESUS) with a mean of 16 mm Hg and post PVC's were somewhat high (JESUS ~24 mmHg) and mean ~ 14 mm Hg. There is mild to moderate degree of mitral regurgitation. The LVEF is excellent, greater than 65%. There is a prosthetic aortic valve. There is a suggestion of limited mobility of the septal cusp of this prosthetic aortic valve. I do not see evidence of aortic regurgitation. The ascending aorta is not dilated. The descending thoracic aorta shows mild scattered plaque. There is evidence of ascites. There is no pericardial effusion. The patient tolerated the procedure well without complications. CONCLUSIONS: In summary, this study shows: 1. There is mitral stenosis which by gradient would be moderate, question of severe with PVC's, with mild to moderate mitral regurgitation. 2. Question of restricted opening of the prosthetic aortic valve. A good gradient could not be obtained on the transgastric view due to inability to line up the probe with the axis of the aortic valve. 3. No evidence of thrombus in the atrium. 4. No evidence of patent foramen ovale. 5. Hyperdynamic LV with small chamber size. 6. small RA/RV. (question of hypovolemia) The patient tolerated it well. cc: MD Leobardo Guzman MD Amit V. Vora, MD MTDD
--- NOTE | 2019-02-12 17:02 | CARDIOLOGY PROGRESS NOTE ---
DATE: 02/12/2019 SUBJECTIVE: Mr. Cardona had his DHAVAL done today. He has no complaints. PHYSICAL: He is afebrile, heart rate 84, blood pressure 93/45. His systolics have been anywhere from the low 70s to the low 100s today.General: He is in no acute distress. Cardiovascular: He sounds to be in a regular rate and rhythm. He has no murmurs, he has no S3. He has no lower extremity edema. Chest: Clear bilaterally. No increased work of breathing. Abdomen: Soft, nontender. PERTINENT DATA: Sodium 127, potassium 4.6, BUN 57, creatinine 6.9, albumin is 2.3. ASSESSMENT: Mr. Cardona is a 73-year-old gentleman who is on peritoneal dialysis. He has had persistent issues with hypotension. PLAN: His DHAVAL was performed today. Reviewed the images with the structural heart service over in [place] and suggested that the aortic valve looked okay they did not see any obvious clot. At this point, we are trying to a fluid challenge on the patient and will plan on a right/left heart catheterization in the morning. Dr. Gomez will be back in the morning to resume care of the patient. cc: MD Nabeel Shipman MD MTDD
[2019-02-12] MEDS: REMERON PO SCH (21:12)
[2019-02-12] MEDS: LIPITOR PO SCH (21:12)
[2019-02-12] MEDS: AMBIEN PO SCH (21:12)
[2019-02-13] MEDS: DUONEB (A & A) INH SCH ×4 (03:44→21:35)
--- NOTE | 2019-02-13 04:06 | NEPHROLOGY PROGRESS NOTE ---
DATE: 02/12/2019 CANELO Cleaning dictating for Rigo Shen MD. SUBJECTIVE: The patient is resting in bed. He was given Ambien last night and is extremely drowsy. OBJECTIVE: Vital Signs: Temperature is 98.7, pulse 70's, respiratory rate 18, blood pressure 81/40, intake 480 mL, and output not measured. General: Elderly gentleman resting in bed. He is in no acute distress although extremely drowsy. HEENT: Normocephalic, atraumatic. Oral mucosa is dry. Neck: Supple. No JVD. Cardiovascular: Regular rate. Pulmonary: Clear bilaterally. Abdomen: Soft. PD catheter noted. Genitourinary: Not inspected. Extremities: No clubbing, cyanosis, or edema. Tegumentary: Skin is warm and dry. LABORATORY DATA: Sodium is 127, potassium 4.6, CO2 25, and creatinine 6.9. ASSESSMENT AND PLAN: 1. End-stage renal disease management. Continue with PD treatment as prior. No changes. 2. Hypotension. We gave him 2 L of normal saline today. Monitor blood pressure and recheck with labs in the morning. Right and left heart cath tomorrow. Dictated by CANELO Cleaning for Rigo Shen MD Face to face encounter, data reviewed, discussed with Krys Salcedo on 02/12/19. I agree with the above assessment and plan of care. cc: MD Nabeel Person MD [facility]
[2019-02-13] MEDS: HUMULIN R SUBQ SCH ×4 (06:31→21:00)
[2019-02-13 08:26] LABS: INR 1.03; PROTIME 14.3 Seconds (11.0-16.0)
[2019-02-13 08:32] LABS: BASO# 0.08 X1000 (0.0-0.2); BASO% 0.9 % (0.0-0.8); EOS# 0.29 X1000 (0.0-0.7); EOS% 3.1 % (0.0-10.0); HEMATOCRIT 25.9 % (42.0-52.0); HEMOGLOBIN 8.3 g/dL (14.0-18.0); IMM GRAN# 0.06 X1000 (0.0-0.04); IMM GRAN% 0.6 % (0.0-0.5); LYMPH# 1.23 X1000 (1.2-3.4); LYMPH% 13.2 % (20.5-51.1); MCH 32.4 PG (27-31); MCV 101.2 FL (81-99); MONO# 1.22 X1000 (0.11-0.59); MONO% 13.1 % (1.7-9.3); NEUT# 6.45 X1000 (1.4-6.5); NEUT% 69.1 % (42.2-75.2); PLT 133 X1000 (130-400); RBC 2.56 XMIL (4.7-6.1); RDW 15.9 % (11.5-14.5); WBC 9.33 X1000 (4.8-10.8)
[2019-02-13] MEDS: MIRALAX PO SCH (08:41)
[2019-02-13] MEDS: ULORIC PO SCH (08:41)
[2019-02-13] MEDS: PROAMATINE PO SCH ×3 (08:41→18:20)
[2019-02-13] MEDS: FOLIC ACID PO SCH (08:41)
[2019-02-13] MEDS: PHOSLO PO SCH ×3 (08:41→16:52)
[2019-02-13] MEDS: CORDARONE PO SCH (08:42)
[2019-02-13] MEDS: NEPHRO-VITE PO SCH (08:42)
[2019-02-13] MEDS: ASPIRIN EC PO SCH (08:43)
[2019-02-13] MEDS: AMARYL PO SCH (08:43)
[2019-02-13] MEDS: PLAVIX PO SCH (08:43)
[2019-02-13] MEDS: JANUVIA PO SCH (08:43)
[2019-02-13 08:47] LABS: POTASSIUM 4.6 mmol/L (3.5-5.1)
[2019-02-13 08:48] LABS: CALCIUM 8.1 mg/dL (8.8-10.2); CREATININE 6.7 mg/dL (0.7-1.2)
[2019-02-13] MEDS ORDERED: HEPARIN 1000 UNITS/NS 2,000 UNIT/1,000 ML IV.SOLN ONE (10:14)
[2019-02-13] MEDS ORDERED: VERSED ONE (10:15)
[2019-02-13] MEDS ORDERED: DILAUDID ONE (10:15)
--- NOTE | 2019-02-13 10:16 | PROGRESS NOTE ---
DATE: 02/13/2019 Mr. Cardona is doing about the same. His is still weak. He cannot stand up. He is very unsteady. That is why the blood pressures in orthostatic position are not done. His pressure is still low in spite of the fact that he got some IV fluids yesterday with normal saline. CBC shows hemoglobin 8.3, hematocrit is 25.9. He had a transesophageal echocardiography which revealed the presence of mitral stenosis. No evidence of thrombus in the atrium has been noted. He is going to go through the right heart catheterization today. Overall condition is unchanged. He continues to remain weak. cc: Nabeel Kinney MD
[2019-02-13] MEDS ORDERED: NS 100 ML ONE (10:22)
[2019-02-13] MEDS ORDERED: CLAVE TWINSITE 32 IN 11959 ONE (10:47)
[2019-02-13] MEDS ORDERED: ANESTHESIA PB SET 88 IN 5742 ONE (10:47)
[2019-02-13] MEDS ORDERED: NS 1,000 ML ONE (10:47)
[2019-02-13] MEDS ORDERED: HEPARIN 1000 UNITS/NS 1,000 UNIT/500 ML IV.SOLN ONE (11:31)
--- NOTE | 2019-02-13 14:18 | NEPHROLOGY PROGRESS NOTE ---
DATE: 02/13/2019 SUBJECTIVE: He feels fine this morning but he is lying flat in bed. No shortness of breath, nausea, vomiting, or other symptoms. He has a planned left and right heart catheterization today. OBJECTIVE: Vital Signs: Blood pressure 88/49, heart rate 84, respirations 14, afebrile. General: No acute distress. Skin is warm and dry. Neck: Neck veins are not distended, approximately 6 cm. Heart: Regular. No gallops. Lungs: Equal. No crackles or wheezes. Abdomen: Soft, nontender. Bowel sounds present. Extremities: No edema, clubbing, or cyanosis. IMPRESSION: Chronic kidney disease 5D. Continue current dialysis prescription using 1.5% Dianeal. Anticipate results of cardiac diagnostics today. No changes in his prescription from my perspective. cc: MD Nabeel Person MD
--- NOTE | 2019-02-13 15:31 | CARDIAC CATH REPORT ---
PROCEDURE DATE: 02/13/2019 INDICATION FOR THE PROCEDURE: Hypotension, mitral stenosis, history of aortic valve replacement, end-stage renal disease. PROCEDURES PERFORMED: Right and left heart catheterization, simultaneous evaluations of wedge pressure and LV pressures. PROCEDURE IN DETAIL: Mr. Cardona was brought to the catheterization laboratory in a fasting state. Informed consent was obtained. Prepped in the usual fashion. He was anesthetized over the right femoral artery and vein. Initially, a wire was placed in the right femoral vein via a modified Seldinger technique. Attention was then turned to the right femoral artery. A 5-Filipino sheath was placed via modified Seldinger technique. Attention was then turned to the right femoral vein which then had a 6-Filipino sheath placed over the wire. All catheters flushed. Right heart catheterization was performed, first advanced into wedge position. Wedge and PA pressures were obtained. Then the JR catheter was placed, passed into the LV with aortic pressures measured along the way. Simultaneous evaluations of pulmonary capillary wedge pressure and the LV pressure were obtained at rest as well as with passive leg raise. RV, RA, and cardiac output thermodilution cardiac output measurements were obtained as well. The coronary angiography was performed in multiple views using JL3.5 and JR4 diagnostic catheters. At the conclusion of the procedure, all sheaths and catheters were removed. Pressure was held. There were 26 mL of Visipaque used. No apparent complications. There was 5-10 mL of blood loss. FINDINGS: Coronary anatomy: 1. The left main originates from the left coronary cusp and appears normal. 2. Left anterior descending originates from the left main. It appears normal throughout its course. 3. Circumflex vessel had minimal luminal irregularities in the proximal vessel. 4. Right coronary originates from the right coronary cusp. There was 20-30% disease noted in the proximal vessel with a mid and distal normal vessel. It is a right dominant system. 5. Aortic blood pressure 80/38 with a mean of 55. Left ventricle pressure is 90/2 with an LVEDP of 1 on passive leg raise and 5 with legs flat. Right heart catheterization: 1. The right atrium pressure is 1. 2. The right ventricle pressure is 17/-1 with a filling pressure of 2. 3. The PA pressure is 28/15 with a mean of 20. 4. The wedge pressure was 4 on leg raise and 13 with flat legs. 5. Cardiac output was 4.98 with an index of 2.5. 6. The mitral valve area was calculated with legs raised and was 2.51 cm2. With legs flat, it was 1.45 cm2. IMPRESSION: Mr. Cardona is a 73-year-old gentleman who presented with hypotension. PLAN: At this point, he appears to have moderate mitral stenosis based on his valve area and gradients obtained during catheterization as well as during echocardiogram. He seems to have very low right-sided filling pressures, a normal wedge pressure, and a relatively normal cardiac output, and a slightly low cardiac index. At this point, we will likely recommend fluids. He does not seem to have a severe degree of mitral stenosis. cc: MD Nabeel Shipman MD MTDD
[2019-02-13] MEDS: NS 1,000 ML IV SCH ×2 (18:19→22:49)
[2019-02-13] MEDS: AMBIEN PO SCH (20:01)
[2019-02-13] MEDS: REMERON PO SCH (20:01)
[2019-02-13] MEDS: LIPITOR PO SCH (20:01)
[2019-02-14] MEDS: DUONEB (A & A) INH SCH ×4 (03:29→22:11)
[2019-02-14] MEDS: NS 1,000 ML IV SCH (03:42)
[2019-02-14 05:57] LABS: CALCIUM 7.7 mg/dL (8.8-10.2); CREATININE 5.8 mg/dL (0.7-1.2); POTASSIUM 4.3 mmol/L (3.5-5.1)
[2019-02-14] MEDS: HUMULIN R SUBQ SCH ×4 (06:09→20:48)
[2019-02-14] MEDS: CORDARONE PO SCH (08:49)
[2019-02-14] MEDS: PLAVIX PO SCH (08:50)
[2019-02-14] MEDS: FOLIC ACID PO SCH (08:50)
[2019-02-14] MEDS: NEPHRO-VITE PO SCH (08:50)
[2019-02-14] MEDS: AMARYL PO SCH (08:50)
[2019-02-14] MEDS: PROAMATINE PO SCH ×3 (08:50→17:17)
[2019-02-14] MEDS: ULORIC PO SCH (08:50)
[2019-02-14] MEDS: PHOSLO PO SCH ×3 (08:51→17:17)
[2019-02-14] MEDS: ASPIRIN EC PO SCH (08:51)
[2019-02-14] MEDS: MIRALAX PO SCH (08:51)
[2019-02-14] MEDS: JANUVIA PO SCH (08:51)
--- NOTE | 2019-02-14 09:14 | PROGRESS NOTE ---
DATE: 02/14/2019 Mr. Cardona in [facility] is doing somewhat better today. His appetite is good. His cardiac catheterization revealed the presence of mild to moderate mitral stenosis. Recommendation was that he needs more fluids. He is getting IV fluids at the present time. He is also getting physical therapy to help him stand up. We have made some arrangements at home about the Aric lift. He cannot stand up. He had some lab data drawn which his lab data reveals potassium of 4.3, BUN 52, creatinine 5.8, sodium is 132. Hepatitis panel is negative. We are going to continue to give him the fluid and ask physical therapy to help him. Once he can stand up or electrolyte status is stable, we will discharge him, which can be tomorrow. cc: Nabeel Kinney MD
--- NOTE | 2019-02-14 12:47 | NEPHROLOGY PROGRESS NOTE ---
DATE: 02/14/2019 SUBJECTIVE: Patient resting in bed. He is quite drowsy. OBJECTIVE: Vital Signs: Temperature 97.8 degrees, pulse 98, respiratory rate 23, blood pressure 103/48. Intake 2 L; output 1.9 L. General: This is an elderly gentleman resting in bed, who is chronically ill appearing, no acute distress. HEENT: Normocephalic, atraumatic. Oral mucosa dry. Neck: Supple. He has positive JVD in a flat position. Cardiovascular: Regular rate. Pulmonary: He is clear bilaterally. Abdomen: Soft. Positive bowel sounds. PD catheter noted. He is still hooked up to the cycler. : Not inspected. Extremities: No clubbing, cyanosis, or edema. Integumentary: Skin is warm and dry. LAB DATA: Sodium 132, potassium 4.3, CO2 24, creatinine 5.8. His cardiac catheterization left indicated aortic blood pressure of 80/38 with a mean of 55, left ventricular pressure of 90/2 with an LVEDP of 1. Right heart catheterization with a right atrial pressure 1, right ventricle pressure 17/-1 with a filling pressure of 2, PA pressure 28/15 with a mean of 20. It was felt that the patient was fluid depleted. ASSESSMENT AND PLAN: 1. Chronic kidney disease 5 D. We will continue with his dialysis treatment. We are not removing fluid through dialysis. We will continue this. Continue on the cycler daily. 2. Fluid volume is felt secondary to his filling pressure. As the patient does need fluid resuscitation, we are giving him 3 liters of fluid over the course of the day. 3. Weakness. The patient has not been up out of bed to any extent since he has gotten to the hospital secondary to his profound weakness. We are requesting physical therapy to go ahead and re-evaluate him and assist. Dictated by CANELO Cleaning for Rigo Shen MD Face to face encounter, data reviewed, discussed with Krys Salcedo on 02/14/19. I agree with the above assessment and plan of care. cc: MD Nabeel Person MD [facility]LANDInderjit
--- NOTE | 2019-02-14 12:54 | Diag Imaging Result Doc PS360 ---
EXAM: CHEST-PORTABLE INDICATION: dyspnea TECHNIQUE: One view COMPARISON: 02/08/2019 FINDINGS: Inspiration is somewhat suboptimal. The lungs are grossly clear. There is no discrete pleural fluid collection or pneumothorax. The cardiomediastinal silhouette and central vasculature are grossly unremarkable. IMPRESSION: Somewhat low lung volumes. No definite acute pathology, otherwise. Electronically signed by Iker Valente 02/14/2019 12:51 PM
[2019-02-14] MEDS: REMERON PO SCH (20:48)
[2019-02-14] MEDS: AMBIEN PO SCH (20:48)
[2019-02-14] MEDS: LIPITOR PO SCH (20:48)
[2019-02-15] MEDS: DUONEB (A & A) INH SCH ×4 (03:26→21:26)
[2019-02-15 05:52] LABS: BASO# 0.08 X1000 (0.0-0.2); BASO% 0.8 % (0.0-0.8); EOS# 0.31 X1000 (0.0-0.7); HEMOGLOBIN 7.7 g/dL (14.0-18.0); IMM GRAN# 0.06 X1000 (0.0-0.04); IMM GRAN% 0.6 % (0.0-0.5); LYMPH# 1.59 X1000 (1.2-3.4); LYMPH% 15.2 % (20.5-51.1); MCH 32.8 PG (27-31); MCHC 32.1 g/dL (33-37); MCV 102.1 FL (81-99); MONO# 1.59 X1000 (0.11-0.59); MONO% 15.2 % (1.7-9.3); MPV 10.4 FL (7.4-10.4); NEUT# 6.84 X1000 (1.4-6.5); NEUT% 65.2 % (42.2-75.2); PLT 112 X1000 (130-400); RBC 2.35 XMIL (4.7-6.1); RDW 15.9 % (11.5-14.5); WBC 10.47 X1000 (4.8-10.8)
[2019-02-15] MEDS: HUMULIN R SUBQ SCH ×4 (06:05→20:30)
[2019-02-15 06:19] LABS: CALCIUM 8.2 mg/dL (8.8-10.2); CREATININE 6.6 mg/dL (0.7-1.2); POTASSIUM 4.5 mmol/L (3.5-5.1)
[2019-02-15] MEDS: AMARYL PO SCH (08:27)
[2019-02-15] MEDS: PHOSLO PO SCH ×3 (08:27→17:14)
[2019-02-15] MEDS: PLAVIX PO SCH (08:27)
[2019-02-15] MEDS: ULORIC PO SCH (08:27)
[2019-02-15] MEDS: NEPHRO-VITE PO SCH (08:28)
[2019-02-15] MEDS: PROAMATINE PO SCH ×3 (08:28→17:15)
[2019-02-15] MEDS: MIRALAX PO SCH (08:28)
[2019-02-15] MEDS: JANUVIA PO SCH (08:28)
[2019-02-15] MEDS: CORDARONE PO SCH (08:28)
[2019-02-15] MEDS: FOLIC ACID PO SCH (08:28)
[2019-02-15] MEDS: ASPIRIN EC PO SCH (08:28)
--- NOTE | 2019-02-15 10:21 | PROGRESS NOTE ---
DATE: 02/15/2019 Mr. Cardona is still not doing well. He is extremely weak. The lungs however sound clear. Hemoglobin has gone down to 7.7, hematocrit 24, sodium 131, and potassium 4.5. Chest x-ray revealed low lung volumes. No definite acute pathology noted. I personally feel like since he is hypotensive and somewhat orthostatic, he will be benefitted with a blood. Blood pressure is 82/47. His hemoglobin is 7.7 g. We will give him 1 unit today and 1 tomorrow. Continue to watch him closely here. He is getting peritoneal dialysis at bedtime. He is being followed by Dr. Shen as well as spinning frame tender. cc: Nabeel Kinney MD
[2019-02-15] MEDS: NS 1,000 ML IV SCH ×3 (11:13→23:04)
--- NOTE | 2019-02-15 15:49 | NEPHROLOGY PROGRESS NOTE ---
DATE: 02/15/2019 SUBJECTIVE: He is lying in bed. Has not really been up overnight. Blood pressure is some better yesterday but low at night. Denies new symptoms. OBJECTIVE: Vital Signs: Blood pressure 182/47, heart rate 76, respiration 18, afebrile. Generally: No acute distress. Skin: Warm and dry. Neck: Neck veins are not visible. Heart: Regular. Lungs: Equal. No crackles. Abdomen: Soft, nontender. Bowel sounds present. Extremities: Have no edema, clubbing or cyanosis. IMPRESSION: Hypotension. The balance of the data suggests that his primary problem is volume depletion. We will give another 3 L of normal saline today through the day and observe his blood pressure. He is on a low Dianeal concentration in order to minimize ultrafiltration but he was 1.4 L net negative with his dialysis on yesterday. Continue physical therapy. Might benefit from 1 unit of packed red blood cells so I will administer that today. cc: MD Nabeel Person MD
[2019-02-15] MEDS: REMERON PO SCH (20:29)
[2019-02-15] MEDS: AMBIEN PO SCH (20:30)
[2019-02-15] MEDS: LIPITOR PO SCH (20:30)
[2019-02-16] MEDS: DUONEB (A & A) INH SCH ×3 (03:44→15:50)
[2019-02-16] MEDS: HUMULIN R SUBQ SCH ×4 (06:24→20:13)
[2019-02-16 06:35] LABS: BASO# 0.06 X1000 (0.0-0.2); BASO% 0.7 % (0.0-0.8); EOS# 0.33 X1000 (0.0-0.7); EOS% 3.6 % (0.0-10.0); HEMATOCRIT 27.5 % (42.0-52.0); IMM GRAN# 0.09 X1000 (0.0-0.04); LYMPH# 1.31 X1000 (1.2-3.4); LYMPH% 14.4 % (20.5-51.1); MCH 32.7 PG (27-31); MCHC 32.7 g/dL (33-37); MONO# 1.32 X1000 (0.11-0.59); MONO% 14.5 % (1.7-9.3); MPV 10.1 FL (7.4-10.4); NEUT# 5.98 X1000 (1.4-6.5); NEUT% 65.8 % (42.2-75.2); PLT 105 X1000 (130-400); RBC 2.75 XMIL (4.7-6.1); RDW 16.6 % (11.5-14.5); WBC 9.09 X1000 (4.8-10.8)
[2019-02-16 06:55] LABS: CALCIUM 8.3 mg/dL (8.8-10.2); CREATININE 6.3 mg/dL (0.7-1.2); MAGNESIUM 1.8 mg/dL (1.5-2.7); POTASSIUM 4.4 mmol/L (3.5-5.1)
[2019-02-16] MEDS: FOLIC ACID PO SCH (09:00)
[2019-02-16] MEDS: PHOSLO PO SCH ×3 (09:00→16:48)
[2019-02-16] MEDS: MIRALAX PO SCH (09:00)
[2019-02-16] MEDS: PLAVIX PO SCH (09:00)
[2019-02-16] MEDS: JANUVIA PO SCH (09:00)
[2019-02-16] MEDS: PROAMATINE PO SCH ×3 (09:00→16:48)
[2019-02-16] MEDS: AMARYL PO SCH (09:01)
[2019-02-16] MEDS: ASPIRIN EC PO SCH (09:01)
[2019-02-16] MEDS: NEPHRO-VITE PO SCH (09:01)
[2019-02-16] MEDS: CORDARONE PO SCH (09:01)
[2019-02-16] MEDS: ULORIC PO SCH (09:03)
[2019-02-16] MEDS ORDERED: NS 500 ML ONE (09:54)
[2019-02-16] MEDS: AMBIEN PO SCH (20:08)
[2019-02-16] MEDS: LIPITOR PO SCH (20:09)
[2019-02-16] MEDS: REMERON PO SCH (20:09)
--- NOTE | 2019-02-16 22:19 | PROGRESS NOTE ---
DATE: 02/16/2019 SUBJECTIVE: I am seeing Mr. Cardona as Dr. Kinney is off this weekend. The patient sat on the side of the bed and he says he feels a little stronger. He felt like he had less pronounced dizziness and weakness overall. He did receive some fluids yesterday per Dr. Shen. Continue peritoneal dialysis nightly. OBJECTIVE: Vital Signs: Afebrile, pulse 95, respirations 20, blood pressure 105/57 currently, during the night as low as 99 systolic. Cardiovascular: RRR with 2/6 murmur. Lungs: Clear. Abdomen: Nondistended. Extremities: No edema. Neurologic: Nonfocal. LABORATORIES: White count 9, hemoglobin 9 after transfusion yesterday of [address] Shen, platelets 105,000, down from 169 earlier in the hospitalization. Sodium 135, potassium 4.4, chloride 98, CO2 of 25, BUN 56, creatinine 6.3, glucose 186, blood sugars high 100s to low 200. ASSESSMENT: 1. Orthostatic hypotension, thought related to volume depletion. 2. End-stage renal disease, on peritoneal dialysis per Dr. Shen. 3. Anemia of chronic disease. 4. History of aortic valve replacement August 2018. 5. Paroxysmal atrial fibrillation, on chronic amiodarone. He is on aspirin and Plavix. 6. Remote history of gastrointestinal bleed. 7. Diabetes mellitus type 2. PLAN: Treatment continues with Dr. Shen regarding his fluid status. Remains on his chronic medications and he is on some midodrine for the hypotension. Continue present treatments. Continue Amaryl and Januvia for his blood sugar. cc: MD Nabeel Jc MD
[2019-02-17 05:48] LABS: BASO# 0.09 X1000 (0.0-0.2); BASO% 0.9 % (0.0-0.8); EOS# 0.35 X1000 (0.0-0.7); EOS% 3.6 % (0.0-10.0); HEMATOCRIT 32.5 % (42.0-52.0); HEMOGLOBIN 10.8 g/dL (14.0-18.0); IMM GRAN# 0.08 X1000 (0.0-0.04); IMM GRAN% 0.8 % (0.0-0.5); LYMPH# 1.36 X1000 (1.2-3.4); LYMPH% 14.2 % (20.5-51.1); MCH 32.2 PG (27-31); MCHC 33.2 g/dL (33-37); MONO# 1.47 X1000 (0.11-0.59); MONO% 15.3 % (1.7-9.3); MPV 10.2 FL (7.4-10.4); NEUT# 6.26 X1000 (1.4-6.5); NEUT% 65.2 % (42.2-75.2); PLT 101 X1000 (130-400); RBC 3.35 XMIL (4.7-6.1); RDW 17.7 % (11.5-14.5); WBC 9.61 X1000 (4.8-10.8)
[2019-02-17] MEDS: HUMULIN R SUBQ SCH ×4 (06:15→20:28)
--- NOTE | 2019-02-17 07:10 | NEPHROLOGY PROGRESS NOTE ---
DATE: 02/16/2019 SUBJECTIVE: He is lying in bed. He has really not been up. No shortness of breath. No nausea or vomiting. He did sit on the side of the bed in the last 24 hours and states he has some weakness but no dizziness or syncope. OBJECTIVE: Vital Signs: Blood pressure 128/62, heart rate 88, respirations 16, afebrile. General: No acute distress. Skin: Warm and dry. Pale. Conjunctivae are pink. Neck: Neck veins are 6 cm. Heart: Regular, with a murmur. Lungs: Equal. No crackles. Abdomen: Soft, nontender. Bowel sounds present. Extremities: No edema, clubbing, or cyanosis. IMPRESSION AND PLAN: Intravascular volume depletion. Neck veins are now appropriate. I encouraged him to drink at least 2 L of water a day. Progressively increase his activity. I will change his diet to regular and I encouraged increase sodium intake. cc: MD Nabeel Person MD
[2019-02-17] MEDS: PHOSLO PO SCH ×3 (08:50→17:16)
[2019-02-17] MEDS: NEPHRO-VITE PO SCH (08:51)
[2019-02-17] MEDS: FOLIC ACID PO SCH (08:51)
[2019-02-17] MEDS: ASPIRIN EC PO SCH (08:51)
[2019-02-17] MEDS: CORDARONE PO SCH (08:51)
[2019-02-17] MEDS: MIRALAX PO SCH (08:51)
[2019-02-17] MEDS: AMARYL PO SCH (08:51)
[2019-02-17] MEDS: JANUVIA PO SCH (08:51)
[2019-02-17] MEDS: PROAMATINE PO SCH ×3 (08:52→17:17)
[2019-02-17] MEDS: PLAVIX PO SCH (08:52)
[2019-02-17] MEDS: ULORIC PO SCH (08:52)
--- NOTE | 2019-02-17 15:34 | PROGRESS NOTE ---
DATE: 02/17/2019 SUBJECTIVE: The patient is laying in the bed. He is arousable and says he sat up in a chair for 2 hours today and denies dizziness with doing so. He does state he is just worn out from doing that earlier today. OBJECTIVE: Afebrile, pulse 92, respirations 18, blood pressure 92/48.Cardiovascular: RRR. Lungs: Clear. Abdomen: Soft, nontender. Extremities: No edema. Neurologic: Nonfocal. Cranial nerves intact. Lethargy noted. DIAGNOSTIC STUDIES: Sodium 1 4. White count 9.6, hemoglobin 10.8, platelets 101,000. Blood sugars in the 100s primarily. ASSESSMENT: 1. Orthostatic hypotension, improving overall with volume repletion per Dr. Shen, now moving over to oral repletion of 2 L per day as recommended per Dr. Shen. 2. End-stage renal disease. On peritoneal dialysis nightly. 3. Anemia of chronic disease. 4. History of aortic valve replacement, August 2018. 5. Paroxysmal atrial fibrillation. On chronic amiodarone, aspirin, and Plavix. 6. Remote history of gastrointestinal bleed. 7. Type 2 diabetes mellitus, controlled with medication of Amaryl and Januvia. PLAN: Continue present care with encouragement of drinking lots of fluids. cc: MD Nabeel Jc MD
[2019-02-17] MEDS: NS 1,000 ML IV SCH ×2 (17:16→22:40)
[2019-02-17] MEDS: AMBIEN PO SCH (20:33)
[2019-02-17] MEDS: REMERON PO SCH (20:34)
[2019-02-17] MEDS: LIPITOR PO SCH (20:34)
[2019-02-18 06:05] LABS: BASO# 0.07 X1000 (0.0-0.2); BASO% 0.8 % (0.0-0.8); EOS% 4.3 % (0.0-10.0); HEMATOCRIT 32.1 % (42.0-52.0); HEMOGLOBIN 10.6 g/dL (14.0-18.0); IMM GRAN% 1.1 % (0.0-0.5); LYMPH# 1.47 X1000 (1.2-3.4); LYMPH% 15.8 % (20.5-51.1); MCH 32.4 PG (27-31); MCV 98.2 FL (81-99); MONO# 1.37 X1000 (0.11-0.59); MONO% 14.7 % (1.7-9.3); MPV 10.5 FL (7.4-10.4); NEUT# 5.88 X1000 (1.4-6.5); NEUT% 63.3 % (42.2-75.2); PLT 108 X1000 (130-400); RBC 3.27 XMIL (4.7-6.1); RDW 17.1 % (11.5-14.5); WBC 9.29 X1000 (4.8-10.8)
[2019-02-18] MEDS: HUMULIN R SUBQ SCH ×4 (06:28→20:35)
[2019-02-18 06:32] LABS: ALBUMIN 2.1 g/dL (3.5-5.0); CALCIUM 8.4 mg/dL (8.8-10.2); CREATININE 6.3 mg/dL (0.7-1.2); PHOSPHORUS 5.5 mg/dL (2.7-4.5); POTASSIUM 4.6 mmol/L (3.5-5.1)
[2019-02-18] MEDS: PHOSLO PO SCH ×3 (09:09→16:34)
[2019-02-18] MEDS: AMARYL PO SCH (09:10)
[2019-02-18] MEDS: CORDARONE PO SCH (09:10)
[2019-02-18] MEDS: ASPIRIN EC PO SCH (09:10)
[2019-02-18] MEDS: FOLIC ACID PO SCH (09:11)
[2019-02-18] MEDS: JANUVIA PO SCH (09:12)
[2019-02-18] MEDS: NEPHRO-VITE PO SCH (09:14)
[2019-02-18] MEDS: MIRALAX PO SCH (09:14)
[2019-02-18] MEDS: PLAVIX PO SCH (09:14)
[2019-02-18] MEDS: PROAMATINE PO SCH ×3 (09:16→16:34)
[2019-02-18] MEDS: ULORIC PO SCH (09:16)
--- NOTE | 2019-02-18 10:00 | PROGRESS NOTE ---
DATE: 02/18/2019 Mr. Cardona is in room C[facility] 10. Mr. Cardona is doing somewhat better. He is still extremely weak. His family is looking forward to arrangements at home, especially Aric lift and hospital bed. Mr. Cardona received blood over the weekend, and his hemoglobin is about 10 grams now, which is a significant improvement. He needs more fluids as suggested by Dr. Shen. We will continue the current management, and probably discharge him today. He indicated to me that he is extremely weak, and he does not think he will be able to go home today. We will wait to see about the arrangements made at home about the Aric lift because he cannot stand at all, and his cannot manage him at home. With peritoneal dialysis, it is almost impossible to transfer him to a rehab center. -4 cc: Nabeel Kinney MD MTDD
--- NOTE | 2019-02-18 16:12 | NEPHROLOGY PROGRESS NOTE ---
DATE: 02/18/2019 PROGRESS NOTE/TREATMENT NOTE: TIME SEEN: 724 SUBJECTIVE: Mr. Cardona is resting quietly in bed. He has no complaints of chest pain or increased work of breathing. OBJECTIVE: Patient's most recent vital signs: Last temperature 97.8 degrees, blood pressure 93/50, heart rate 81, respirations 16, he is on room air, last recorded saturation is 100%. Intake and Output: He has had 3050 in. He has had 0 recorded out with continued peritoneal dialysis, noted 1600 mL out per PD. General: This is a 73-year-old elderly male, resting quietly in bed. He appears chronically ill, in no acute distress. Skin is warm and dry. HEENT: Normocephalic, atraumatic. Conjunctiva is pale. He has MIKE. Mucous membranes are dry. Neck: Supple. Trachea midline. He has trace JVD at 6 cm hawk at the clavicular line. Cardiovascular: He has regular rate and rhythm. He has a systolic murmur. His lungs are clear to auscultation bilateral, equal excursion on room air. Abdomen is slightly distended. PD catheter remains dry and intact. He continues on the cycler from his nighttime treatment. PD catheter is dry and intact without redness or swelling. Genitourinary: Not inspected. Dialysis assist. Extremities: Have trace edema. No clubbing or cyanosis. Neurological: He is alert and oriented x3, though he appears very weak. LABORATORY DATA: His sodium is 136, potassium 4.6, chloride 98, CO2 of 25, BUN 55, creatinine 6.3, glucose 101, his anion gap is 13, calcium 8.4, phosphorus 5.5, albumin 2.1. White count 9.29, hemoglobin 10.6, hematocrit 32.1 with a platelet count of 108,000. ASSESSMENT AND PLAN: 1. Chronic kidney disease, stage 5D. The patient is due for his routine dialysis treatment this evening. We placed the patient on 1.5% dianeal during the night. Due to intravascular depletion, we did give him IV fluids during the day yesterday. 2. Intravascular volume depletion. The patient has received IV fluids. He has had greater than 3 L in, tolerated this well, though he does have trace edema this a.m. We will have them check his orthostatic blood pressures today. 3. Electrolytes, acid-base balance. These are acceptable. 4. Anemia. This is acceptable. 5. Hypotension. The patient continues on midodrine. Due to his intravascular volume depletion, we will check his orthostatic blood pressures on a daily a.m. basis. He continues on midodrine 10 mg p.o. t.i.d. I would like to thank you for allowing us to follow with this patient. Dictated by CANELO Larson for Rigo Shen MD Face to face encounter, data reviewed, discussed with Cee Box on 02/18/19. I agree with the above assessment and plan of care. cc: CANELO Larson MD Amit V. Vora, MD [facility] CENTERInderjit
[2019-02-18] MEDS: LIPITOR PO SCH (20:35)
[2019-02-18] MEDS: AMBIEN PO SCH (20:35)
[2019-02-18] MEDS: REMERON PO SCH (20:35)
[2019-02-19] MEDS: HUMULIN R SUBQ SCH ×2 (06:23→11:43)
[2019-02-19 06:39] LABS: ALBUMIN 1.9 g/dL (3.5-5.0); CALCIUM 8.1 mg/dL (8.8-10.2); CREATININE 6.4 mg/dL (0.7-1.2); PHOSPHORUS 5.8 mg/dL (2.7-4.5); POTASSIUM 4.1 mmol/L (3.5-5.1)
[2019-02-19 08:09] VITALS: BP 99/59
[2019-02-19] MEDS: AMARYL PO SCH (08:55)
[2019-02-19] MEDS: MIRALAX PO SCH (08:55)
[2019-02-19] MEDS: PROAMATINE PO SCH ×2 (08:55→12:12)
[2019-02-19] MEDS: NEPHRO-VITE PO SCH (08:55)
[2019-02-19] MEDS: FOLIC ACID PO SCH (08:55)
[2019-02-19] MEDS: PLAVIX PO SCH (08:55)
[2019-02-19] MEDS: ASPIRIN EC PO SCH (08:55)
[2019-02-19] MEDS: CORDARONE PO SCH (08:55)
[2019-02-19] MEDS: PHOSLO PO SCH ×2 (08:55→12:12)
[2019-02-19] MEDS: ULORIC PO SCH (08:55)
[2019-02-19] MEDS: JANUVIA PO SCH (08:55)
--- NOTE | 2019-02-19 09:56 | PROGRESS NOTE ---
DATE: 02/19/2019 Mr. Cardona is feeling better. His electrolytes are stable. Lungs are clear. He is feeling somewhat stronger. We are going to discharge him home today. cc: Nabeel Kinney MD
[2019-02-19] MEDS ORDERED: NS 1,000 ML IV ONE (12:09)
--- NOTE | 2019-02-19 13:42 | NEPHROLOGY PROGRESS NOTE ---
DATE: 02/19/2019 SUBJECTIVE: Mr. Cardona is resting quietly in bed. His is at his bedside. States that he had gotten up on the side of the bed yesterday. He tolerated this well. He is able to sit if he has assistance with his head and shoulders. Otherwise he remains weak. OBJECTIVE: His most recent vital signs, blood pressure 113/58, heart rate 89, respirations 16, temperature of 98.4 degrees, O2 on 3 L nasal cannula, last recorded saturation 99%. He has had 0 recorded in, 210 out with void and dialysis. LABORATORY DATA: Sodium 134, potassium 4.1, chloride 98, CO2 23, BUN 60, creatinine 6.4, glucose 159. His anion gap is 13, calcium 8.1, phosphorus 5.8, albumin 1.9 with a previous hemoglobin 10.6. PHYSICAL EXAMINATION: General: This is a 73-year-old white male. He is resting quietly in bed. He appears chronically ill, no acute distress. Skin: Warm and dry. HEENT: Normocephalic, atraumatic. Conjunctiva is pale, pink, he has MIKE. Mucous membranes are dry. Neck: Supple. Trachea midline. No evidence of JVD. Cardiovascular: He is regular rate and rhythm. He does have a systolic murmur. Lungs: Clear to auscultation bilaterally. Equal excursion on room air at this time. Abdomen: Soft, nontender, positive bowel sounds. Genitourinary: Not inspected. Minimal void with dialysis assist. Integumentary: PD catheter is intact to the right lower quadrant. No redness or drainage noted. Continues on his cycler from the nighttime treatment. Extremities: Patient continues with trace edema. No clubbing or cyanosis. Neurological: Alert and oriented x3, though weak. ASSESSMENT AND PLAN: 1. Chronic kidney disease stage 5D. The patient continues to be attached to the cycler for his peritoneal dialysis treatment from yesterday evening. He will be taken off this a.m. by the dialysis nurses. 2. Intravascular volume depletion. Patient has received IV fluids yesterday evening. We will give him 1 L of normal saline today with plans on a daily normal saline of 1 L daily over the next several weeks per home health once discharged. 3. Electrolytes, acid-base balance, and anemia. These all remain stable. 4. I would like to thank you for allowing us to follow with this patient. Dictated by CANELO Larson for Rigo Shen MD Face to face encounter, data reviewed, discussed with Cee Box on 02/19/19. I agree with the above assessment and plan of care. cc: CANELO Larson MD Amit V. Vora, MD [facility]ITALInderjit
--- NOTE | 2019-02-19 15:33 | DISCHARGE SUMMARY ---
ADMISSION DATE: 02/08/2019 DISCHARGE DATE: 02/19/2019 Mr. Cardona was admitted with generalized severe weakness, severe orthostatic hypotension, increasing renal failure. Echocardiogram revealed the presence of ejection fraction of 70%, and there was presence of mitral stenosis. He had aortic valve surgery performed on him. He had a cardiac cath performed which also revealed some presence of mitral stenosis of moderate degree. He had a cardiology as well as nephrology consultation. We continued peritoneal dialysis. IV fluids were given according to the need as he was hypotensive and had orthostatic hypotension. Midodrine 10 mg t.i.d., that is ProAmatine, was given. Zolpidem was given 5 mg at bedtime. He did good. He became anemic. Hemoglobin went down to 7.7, and he was transfused 2 units, which helped the hemoglobin to come up to 10.3. We will discharge him. FINAL DIAGNOSIS: 1. End-stage renal failure. 2. Mitral stenosis. 3. Orthostatic hypotension. 4. Severe anemia. 5. Volume depletion. He is advised to drink more liquids at home. cc: Nabeel Kinney MD
== END 2019-02-19 13:09 | disposition home health service (06) | DRG 640 ==
LOC: ED 11:08 → 4N 13:26 → 1N 02-11 12:12 → 3S 02-13 11:02
PROVIDERS: ADMIT Internal Medicine; ATTEND Internal Medicine
CPT/HCPCS: 36430; 71010; 71020; 71045; 71046; 76700; 80048; 80053; 80069; 80074; 82085; 82550; 82553; 82607; 82948; 83735; 83880; 84443; 84484; 85025; 85379; 85610; 85651; 85730; 86140; 86850; 86900; 86901; 86920; 93005; 93306; 93312; 93460; 94640; 94760; 94761; 97110; 97116; 97162; 97530; 99285; A9270; J1170; J1644; J2175; J2250; J3480; J7030; J7040; P9016; Q9967; S0179; XXXXX

== ENCOUNTER 2019-02-23 10:26 | Inpatient (IN) ==
[2019-02-23] MEDS ORDERED: NS 1,000 ML IV ONE ×3 (11:24→13:31)
[2019-02-23 11:43] LABS: BASO# 0.04 X1000 (0.0-0.2); BASO% 0.5 % (0.0-0.8); EOS# 0.24 X1000 (0.0-0.7); EOS% 2.9 % (0.0-10.0); HEMATOCRIT 33.8 % (42.0-52.0); HEMOGLOBIN 11.2 g/dL (14.0-18.0); IMM GRAN# 0.05 X1000 (0.0-0.04); IMM GRAN% 0.6 % (0.0-0.5); LYMPH# 0.98 X1000 (1.2-3.4); LYMPH% 11.9 % (20.5-51.1); MCH 32.5 PG (27-31); MCHC 33.1 g/dL (33-37); MONO# 0.92 X1000 (0.11-0.59); MONO% 11.2 % (1.7-9.3); MPV 10.3 FL (7.4-10.4); NEUT# 6.02 X1000 (1.4-6.5); NEUT% 72.9 % (42.2-75.2); PLT 162 X1000 (130-400); RBC 3.45 XMIL (4.7-6.1); RDW 15.5 % (11.5-14.5); WBC 8.25 X1000 (4.8-10.8)
[2019-02-23 11:46] LABS: INR 0.98; PROTIME 13.8 Seconds (11.0-16.0)
[2019-02-23 11:47] LABS: PTT 29.2 Seconds (22.3-41.8)
--- NOTE | 2019-02-23 11:49 | Diag Imaging Result Doc PS360 ---
CHEST-1 VIEW - 02/23/2019 INDICATION: sepsis COMPARISON: 02/14/2019 FINDINGS: Stable moderately low lung volumes. The lungs are clear. Heart size is normal. No pneumothorax or pleural effusion. IMPRESSION: Negative exam. Electronically signed by Franklin Anthony 02/23/2019 11:47 AM
[2019-02-23 12:40] LABS: ALB/GLOB RATIO 0.9; ALBUMIN 2.3 g/dL (3.5-5.0); CALCIUM 7.8 mg/dL (8.8-10.2); CREATININE 7.8 mg/dL (0.7-1.2); TOTAL BILIRUBIN 0.37 mg/dL (0.20-1.00); TOTAL PROTEIN 4.9 g/dL (6.3-8.3)
[2019-02-23 13:03] LABS: POTASSIUM 5.8 mmol/L (3.5-5.1)
[2019-02-23] MEDS ORDERED: [UNRECOGNIZED DRUG - OTHER] IM ONE (13:12)
[2019-02-23] MEDS ORDERED: VANCOMYCIN 1 GM/NS 1 GM/250 ML IVPB IV ONE (13:12)
[2019-02-23] MEDS ORDERED: ZOFRAN IV PRN (13:31)
[2019-02-23] MEDS ORDERED: TAZIDIME 2 GM in NS 100 ML IV ONE (13:34)
[2019-02-23 14:31] LABS: SPECIMEN PERITONEAL FLUID
[2019-02-23 16:35] LABS: BODY FLUID SOURCE PERI DIAL FLUID; WBC BF 48 /cumm
[2019-02-23 16:41] LABS: POLYS 18 %
[2019-02-23 16:42] LABS: MONOS 82 %
[2019-02-23] MEDS ORDERED: CALMOSEPTINE OINTMENT TOP PRN (16:52)
[2019-02-23] MEDS ORDERED: TYLENOL PO PRN (16:59)
[2019-02-23] MEDS ORDERED: VANCOMYCIN IV PER PHARMACY MISC SCH (17:00)
[2019-02-23 17:28] LABS: HEMOGLOBIN A1C 5.9 % (4.8-6.0)
[2019-02-23] MEDS: TAZIDIME 1 GM in NS 50 ML IV SCH (17:38)
--- NOTE | 2019-02-23 17:44 | HISTORY AND PHYSICAL ---
ADMITTED TO: Dr. Kinney. CHIEF COMPLAINT: Not feeling well and has noticed today that his peritoneal fluid from his peritoneal lavage looked cloudy. PRESENT ILLNESS: Patient is a 73-year-old white male with end-stage renal disease on peritoneal dialysis at home who noticed cloudy peritoneal fluid today. He has not felt well for the last week or so. He has just felt more and more tired. He has had several other problems as well that are chronic. PAST HISTORY: 1. Includes chronic renal disease requiring peritoneal dialysis. 2. Aortic stenosis status post transcatheter aortic valve replacement in August of this year. 3. Paroxysmal atrial tachycardia intermittent. 4. History of gastrointestinal bleeding. 5. History of hypertension . 6. Episodes of hypotension. 7. History of hypercalcemia. 8. History of peritonitis. 9. Diabetes. SURGERIES: Include tonsillectomy, detached retina, cataract removal, cholecystectomy and aortic valve replacement. He has also had a hernia repair and an appendectomy . PAST HISTORY: Has not used tobacco in 40 years, only occasionally drinks a glass of wine. Has been seen by Cardiology in the past. HOME MEDICATIONS: Include amiodarone 100 mg daily, aspirin 81 mg daily, Lipitor 40 mg daily, Plavix 75 mg daily, Uloric 40 mg q.a.m., ferric citrate 210 mg p.o. t.i.d., folic acid 800 mg daily, glimepiride 1 mg q.a.m., Lantus insulin per Dr. Kinney, melatonin 10 mg at bedtime, Calmoseptine ointment topically as needed, ProAmatine 10 mg p.o. t.i.d., Remeron 30 mg at bedtime, MiraLAX 17 g daily, Januvia 50 mg daily and Ambien 5 mg at bedtime. FAMILY HISTORY: Patient has had 2 children 1 son who some time ago, a daughter who is in fair health. REVIEW OF SYSTEMS: Neurological: Denies headaches, seizures, visual problems, hearing problems. Pulmonary: Denies cough, wheezing, dyspnea. Cardiovascular: Denies chest pain, heart palpitations, PND, orthopnea. GI: Denies hematochezia, hematemesis, melena, constipation, diarrhea or abdominal pain. : The patient is on peritoneal dialysis. Musculoskeletal: The patient does have pain in his legs. This is probably more peripheral neuropathy. Does not take anything for it at this time. Endocrine: Does have diabetes. PHYSICAL EXAMINATION: VITAL SIGNS: Blood pressure 112/60, respirations 18, pulse 72, temperature 97.7 degrees Fahrenheit, oxygen saturation is 100% on room air. HEENT: Normocephalic. EOMs intact. PERRLA. Throat clear. Fundi not seen well due to constriction of pupils. NECK: Supple without thyromegaly, lymphadenopathy, carotid bruits. LUNGS: Are clear to auscultation and percussion without rhonchi, rales or wheezes. HEART: Regular rate and rhythm without murmurs, gallops or friction rubs. Chest x-ray is clear. ABDOMEN: Soft. Active bowel sounds. No organomegaly or tenderness. NEUROLOGICAL: Cranial nerves 2-12 intact grossly, sensory, motor are impaired with monofilament test impaired up to knee bilaterally. LYMPH NODES: Are nonpalpable in the cervical and supraclavicular areas. INTEGUMENT: Shows no lesions consistent with melanoma or skin cancers. LABORATORY: White count is 8250, hemoglobin 11.2, hematocrit 33.8, platelet count 162,000. Troponin is elevated at 1.10 but he has a creatinine of 7.8 and BUN of 84. Peritoneal fluid showed a pH of 7.0, white blood cells at 48, polynuclear white blood cells at 18, mononuclear white cells at 82. ASSESSMENT: 1. Possible early peritonitis. 2. Renal failure on peritoneal dialysis. 3. Valvular heart disease. 4. Intermittent atrial fibrillation. 5. Peripheral neuropathy. 6. Diabetes mellitus. 7. History of hypertension but has had hypotension since he has been on dialysis. PLAN: Will admit. Will treat with IV antibiotics. Will consult Nephrology. cc: Nicholas Fink Jr, MD
[2019-02-23] MEDS ORDERED: VANCOMYCIN 1,000 MG in NS 250 ML IV SCH (18:00)
[2019-02-23] MEDS: PROAMATINE PO SCH (18:36)
[2019-02-23] MEDS: HUMULIN R SUBQ SCH ×2 (18:36→21:50)
[2019-02-23] MEDS: PATIENT'S OWN MED PO SCH (18:40)
[2019-02-23] MEDS: AMBIEN PO SCH (21:45)
[2019-02-23] MEDS: REMERON PO SCH (21:45)
[2019-02-23] MEDS: MELATONIN PO SCH (22:50)
[2019-02-24] MEDS: TAZIDIME 1 GM in NS 50 ML IV SCH ×3 (00:55→18:08)
[2019-02-24] MEDS: HUMULIN R SUBQ SCH ×4 (06:38→20:32)
[2019-02-24 07:51] LABS: BASO# 0.05 X1000 (0.0-0.2); BASO% 0.6 % (0.0-0.8); EOS# 0.42 X1000 (0.0-0.7); EOS% 4.9 % (0.0-10.0); HEMATOCRIT 34.8 % (42.0-52.0); HEMOGLOBIN 11.5 g/dL (14.0-18.0); IMM GRAN# 0.05 X1000 (0.0-0.04); IMM GRAN% 0.6 % (0.0-0.5); LYMPH% 11.8 % (20.5-51.1); MCH 32.3 PG (27-31); MCV 97.8 FL (81-99); MONO% 7.1 % (1.7-9.3); MPV 10.2 FL (7.4-10.4); NEUT# 6.37 X1000 (1.4-6.5); PLT 172 X1000 (130-400); RBC 3.56 XMIL (4.7-6.1); RDW 15.6 % (11.5-14.5); WBC 8.49 X1000 (4.8-10.8)
[2019-02-24 08:12] LABS: CALCIUM 8.1 mg/dL (8.8-10.2); CREATININE 6.5 mg/dL (0.7-1.2); POTASSIUM 4.6 mmol/L (3.5-5.1)
[2019-02-24] MEDS: FOLIC ACID PO SCH (08:35)
[2019-02-24] MEDS: LIPITOR PO SCH (08:35)
[2019-02-24] MEDS: PLAVIX PO SCH (08:35)
[2019-02-24] MEDS: ASPIRIN EC PO SCH (08:35)
[2019-02-24] MEDS: PROAMATINE PO SCH ×3 (08:35→16:59)
[2019-02-24] MEDS: ULORIC PO SCH (08:35)
[2019-02-24] MEDS: MIRALAX PO SCH (08:36)
[2019-02-24] MEDS: CORDARONE PO SCH (08:36)
[2019-02-24] MEDS: PATIENT'S OWN MED PO SCH ×4 (09:00→16:59)
[2019-02-24 10:30] LABS: BODY FLUID SOURCE PERITONEAL FLUID
[2019-02-24 10:32] LABS: WBC BF 19 /cumm
[2019-02-24 10:33] LABS: MONOS 73 %; POLYS 27 %
--- NOTE | 2019-02-24 13:01 | PROGRESS NOTE ---
DATE: 02/24/2019 I am seeing the patient for Dr. Kinney. SUBJECTIVE: The patient says he thinks he feels a little bit better. OBJECTIVE: Vital Signs: Temperature 97.9 degrees Fahrenheit, blood pressure 90/53, pulse 86 and regular at this time though he has a history of intermittent atrial fibrillation. HEENT: Normocephalic. EOMs intact. PERRLA. Throat clear. Lungs: Clear to auscultation and percussion without rhonchi, rales, or wheezes. Heart: Regular rate and rhythm without murmurs, gallops, friction rubs. Abdomen: Soft. Active bowel sounds. No organomegaly or tenderness. Neurological: Intact grossly. LABORATORY DATA: CBC has been normal. Pleural fluid had very little pus in it. He has had no fever. If this was a peritonitis, we caught it very early. The patient says the fluid looks clearer to him than it did the other day, so he may have just started to develop a peritonitis when he came in. He has had this before. ASSESSMENT: 1. Peritonitis. 2. Aortic stenosis, status post transcatheter aortic valve replacement. 3. Intermittent paroxysmal atrial tachycardia. 4. History of gastrointestinal bleed. 5. Hypertension. In my earlier dictation when I said atrial fibrillation, it should have been paroxysmal atrial tachycardia. PLAN: Will continue to support. Dr. Cortez, Infectious Disease, and Dr. Shen, Nephrology, to see. cc: Nicholas Fink Jr, MD MTDInderjit
--- NOTE | 2019-02-24 17:07 | INFECTIOUS DISEASE CONSULT REP ---
DATE: 02/24/2019 CONCLUSION: Patient initially had cloudy peritoneal fluid; however, the patient did not have fever. He never had abdominal pain. His peritoneal fluid white count was initially 48, and the repeat one was 19; 73% of the white blood cells were mononuclear white cells. The culture was negative. The Gram stain showed white cells but no organisms. The patient never did have a leukocytosis and did not have fever. For all these reasons, both Dr. Shen and I feel that the patient does not have peritonitis and does not require any more antibiotics. If the patient is up to it, we both think that the patient can be discharged also. DISCUSSION: Patient had cloudy peritoneal dialysis fluid, and it was sent for studies as mentioned above. The patient has been taking a combination in the hospital of vancomycin and ceftazidime. He subsequently has not had any fever, and he still continues not to have any abdominal pain. The peritoneal site does not look red or draining either. DIAGNOSTIC STUDIES: Patient's CBC shows a white count of 8490, hemoglobin 11.5, and platelet count 172,000. The patient's creatinine is 6.5, GFR is 8. Liver function studies are normal except for an alkaline phosphatase of 293. The patient's chest x-ray shows that lungs are clear and the heart size is normal. PAST MEDICAL HISTORY/REVIEW OF SYSTEMS: Eyes and Ears: His hearing and vision are okay. Neck: No stiffness. Respiratory: For the past month the patient has had dyspnea on exertion, but he is not coughing. Cardiac: No chest pain or palpitations. Gastrointestinal: No nausea, vomiting, or diarrhea. Neurologic: The patient has not had any seizures or loss of motor or sensory function recently. PREVIOUS HOSPITALIZATIONS AND OPERATIONS: He has had placement of a peritoneal dialysis catheter, aortic valve replacement, tonsillectomy, cholecystectomy, and 2 separate eye surgeries. The patient has also had an appendectomy and hernia repair. MEDICAL DISEASES: Positive for end-stage renal disease, diabetes mellitus. At one time, the patient had hypertension; now his blood pressure runs low. INFECTIOUS DISEASE HISTORY: Positive for pneumonia and peritonitis. FAMILY HISTORY: Positive for diabetes mellitus, hypertension, myocardial infarction, stroke, and cancer. SOCIAL HISTORY: The patient lives in [place]. He is . The patient is a retired mutual fund accountant. The patient does not have any pets at home. He does not smoke cigarettes, drink alcoholic beverages, or abuse drugs. ALLERGIES: He is allergic to Tamiflu. HOME MEDICATIONS: Include amiodarone, atorvastatin, Plavix, Uloric, Amaryl, melatonin, ProAmatine, Remeron, Januvia, and Ambien. PHYSICAL EXAMINATION: Vital Signs: Temperature 97.6 degrees, pulse 75, respirations 12, blood pressure 125/65. General: This is a chronically ill-appearing elderly male. He is in no acute distress. Head, Eyes, Ears, Nose, and Throat: He can hear my spoken words and see near objects. No drainage noted from the nose or the ears. He does not have any white patches on his tongue. Neck: No meningismus. Lungs: Clear to auscultation. Cardiovascular: Heart rate is regular. Abdomen: Soft and nontender. The peritoneal dialysis catheter site is not erythematous or purulent. Neurologic: The patient is alert. He can move his extremities. There is no tremor. His sensation is intact to touch. His memory seemed to be intact. Integument: No rash noted. I am signing off the patient's case. Thank you for the consult. cc: MD Nicholas Wallace Jr, MD MTDD
[2019-02-24] MEDS: AMBIEN PO SCH (20:33)
[2019-02-24] MEDS: REMERON PO SCH (20:33)
[2019-02-24] MEDS: MELATONIN PO SCH (20:40)
[2019-02-25] MEDS: TAZIDIME 1 GM in NS 50 ML IV SCH ×2 (01:36→10:44)
[2019-02-25] MEDS: HUMULIN R SUBQ SCH ×2 (06:36→11:35)
[2019-02-25 08:15] LABS: BASO# 0.08 X1000 (0.0-0.2); EOS# 0.46 X1000 (0.0-0.7); EOS% 5.8 % (0.0-10.0); HEMOGLOBIN 11.8 g/dL (14.0-18.0); IMM GRAN# 0.06 X1000 (0.0-0.04); IMM GRAN% 0.8 % (0.0-0.5); LYMPH# 1.34 X1000 (1.2-3.4); LYMPH% 16.9 % (20.5-51.1); MCHC 32.8 g/dL (33-37); MCV 97.6 FL (81-99); MONO% 13.9 % (1.7-9.3); MPV 10.3 FL (7.4-10.4); NEUT# 4.87 X1000 (1.4-6.5); NEUT% 61.6 % (42.2-75.2); PLT 170 X1000 (130-400); RBC 3.69 XMIL (4.7-6.1); RDW 15.8 % (11.5-14.5); WBC 7.91 X1000 (4.8-10.8)
[2019-02-25 08:56] LABS: CALCIUM 7.9 mg/dL (8.8-10.2); CREATININE 6.3 mg/dL (0.7-1.2); POTASSIUM 4.7 mmol/L (3.5-5.1)
--- NOTE | 2019-02-25 09:49 | PROGRESS NOTE ---
DATE: 02/25/2019 SUBJECTIVE: Mr. Cardona is feeling better. His vital signs are stable. He does not have any abdominal pain. CBC shows no evidence of leukocytosis. His previous peritoneal fluid culture was negative. Dr. Cortez indicated yesterday that he probably can go home today if he is feeling good, and I am going to discharge him today to go home by ambulance. cc: MD Nichloas Wahl Jr, MD
[2019-02-25] MEDS ORDERED: CALMOSEPTINE OINTMENT TOP ONE (09:55)
[2019-02-25] MEDS: PROAMATINE PO SCH (10:08)
[2019-02-25] MEDS: LIPITOR PO SCH (10:08)
[2019-02-25] MEDS: ULORIC PO SCH (10:08)
[2019-02-25] MEDS: FOLIC ACID PO SCH (10:08)
[2019-02-25] MEDS: MIRALAX PO SCH (10:08)
[2019-02-25] MEDS: ASPIRIN EC PO SCH (10:08)
[2019-02-25] MEDS: CORDARONE PO SCH (10:08)
[2019-02-25] MEDS: PLAVIX PO SCH (10:09)
[2019-02-25] MEDS: PATIENT'S OWN MED PO SCH (10:13)
[2019-02-25 12:11] VITALS: BP 101/53
--- NOTE | 2019-02-25 12:34 | NEPHROLOGY CONSULTATION ---
DATE: 02/25/2019 REASON FOR ADMISSION: Cloudy peritoneal fluid. REASON FOR CONSULTATION: Cloudy peritoneal fluid, assist with management, peritoneal dialysis. CONSULTING PHYSICIAN: Dr. Fink HISTORY OF PRESENT ILLNESS: This is a 73-year-old gentleman well known to our service for peritoneal dialysis, who was recently in the hospital with issues of hypotension and weakness. The patient came to the hospital on the day of admission secondary to having obviously cloudy peritoneal fluid. He had no fevers. He had no abdominal pain. His original white count on the PD fluid was 48 with monos of 82. The patient was treated with IV antibiotics. He did have an Infectious Disease evaluation. The patient today denies any other issues. PAST MEDICAL HISTORY: Peritoneal dialysis, aortic stenosis, status post TAVR, paroxysmal atrial tachycardia that is intermittent, history of GI bleed, hypertension, hypotension, hypercalcemia, peritonitis, diabetes. PAST SURGICAL HISTORY: Tonsillectomy, retina repair, cataract removal, cholecystectomy, TAVR, hernia repair, appendectomy. ALLERGIES: Oseltamivir. HOME MEDICATIONS: Amiodarone, aspirin, Lipitor, Plavix, Uloric, ferric citrate, folic acid, glimepiride, Lantus, melatonin, Calmoseptine, ProAmatine, Remeron, MiraLAX, Januvia, and Ambien. FAMILY HISTORY: Noncontributory. SOCIAL HISTORY: Lives with his . No ETOH, tobacco or illicit drug use. REVIEW OF SYSTEMS: Weakness. PHYSICAL EXAMINATION: Vital signs: Temperature is 97.8, pulse 85, respiratory rate 15, blood pressure 108/53. Intake is 350 mL, output 2.5 L. General: This is an elderly gentleman lying flat in bed. He is awake and alert, no acute distress. HEENT: Atraumatic and normocephalic. PERRL. Pupils are pinpoint. Conjunctivae are pink. Oral mucosa moist. Neck: Supple. No JVD in a flat position. Cardiovascular: Regular rate and rhythm. Pulmonary: Clear bilaterally. No increased work of breathing. Abdomen: Soft with positive bowel sounds. He denies tenderness. He has a peritoneal dialysis catheter intact. : Voiding. Extremities: No cyanosis, clubbing or edema. Integumentary: Skin is pale, warm and dry. Neurologic: Grossly nonfocal. DIAGNOSTIC DATA: Lab data pending. Again, his last set of PD fluid count with WBCs of 19 and mono WBCs of 73. ASSESSMENT AND PLAN: End stage renal disease on peritoneal dialysis. Continue his current treatment plan. The patient did have cloudy peritoneal fluid. It does not have bacteria/elevated WBC count. The patient has had no fever and no abdominal pain. We have discussed this with Infectious Disease. This does not appear to be peritonitis. We will stop his antibiotics and continue his current PD treatment plan. From a renal perspective, he can be discharged at the discretion of the primary. Dictated by [employer] for Rigo Shen MD Face to face encounter, data reviewed, discussed with Krys Salcedo on 02/25/19. I agree with the above assessment and plan of care. cc: MD Nicholas Person Jr, MD MTDD
--- NOTE | 2019-02-26 21:24 | DISCHARGE SUMMARY ---
ADMISSION DATE: 02/23/2019 DISCHARGE DATE: 02/25/2019 HISTORY OF PRESENT ILLNESS AND HOSPITAL COURSE: Mr. Cardona was admitted because his return peritoneal fluid was very cloudy. He gets peritoneal dialysis every day. He has chronic renal failure. He was recently discharged. He did not have any significant amount of WBCs in the peritoneal fluid and a culture at the prior admission was negative. He did not have abdominal pain and the patient was evaluated initially. He was restarted IV antibiotics, IV piperacillin or Zosyn and the next day was seen by infectious disease physician, Dr. Cortez and Dr. Shen, the audio visual specialist, and both of them decided that he did not actually have peritonitis, which was infectious peritonitis. Possible reason the fluid was milky or cloudy could be because of chemical peritonitis. The patient has end-stage renal failure and elevated BUN and creatinine. He will be discharged. He is anemic. cc: MD Nicholas Wahl Jr, MD
== END 2019-02-25 12:41 | disposition home or self-care (01) | DRG 919 ==
LOC: SUPCPDRO → ED 10:26 → 1N 13:53
PROVIDERS: ADMIT Emergency Medicine; ATTEND Internal Medicine
CPT/HCPCS: 71010; 71045; 80048; 80053; 82550; 82948; 83036; 83605; 83986; 84484; 85025; 85610; 85730; 87040; 87070; 87205; 89051; 96360; 99284; A9270; J0713; J3370; J7030; J7050; XXXXX